=== PATIENT | female | born 2000 | race Caucasian/White ===

== ENCOUNTER 2023-10-20 16:22 | Outpatient (OUT) | payer OTHER, SELFPAY ==
[2023-10-20 18:13] LABS: HCG Quantitative 695 mIU/mL
== END 2023-10-20 16:23 | disposition home or self-care (01) ==
LOC: LAB 16:22
PROVIDERS: PCP Internal Medicine; Visit Provider Obstetrics & Gynecology
DX: N92.6 Irregular menstruation, unspecified (principal)
CPT/HCPCS: 36415; 84702

== ENCOUNTER 2023-10-22 09:32 | Outpatient (OUT) | payer OTHER, SELFPAY ==
--- OUTSIDE RECORDS SUMMARY | 2023-10-22 09:35 | XMS_ITS | CCD ---
Author Name Unknown Address [address] [place] [address] Organization [facility] Care Team Providers Care Franchise Business Consultant Name Role Phone MANSI, VITOR Admitting Unavailable MANSI, VITOR Attending Unavailable DR NAVNEET SANDOVAL Primary Care Unavailable MANSI, VITOR Consulting Unavailable NAHED ., NARGIS Admitting Unavailable NAHED ., NARGIS Attending Unavailable SANDHYA, DR ANAND PELAYO Primary Care Unavaillise MORFIN, DR ROBERTO Lynch Consulting Unavailable NAHED ., NARGIS Consulting Unavailable NAHED ., NARGIS Admitting Unavailable NAHED ., NARGIS Attending Unavailable LORI, DR TOTH Primary Care Unavailable NAHED ., NARGIS Consulting Unavailable MANSI, VITOR Admitting Unavailable MANSI, VITOR Attending Unavailable DR NAVNEET SANDOVAL Primary Care Unavailable MANSI, VITOR Consulting Unavailable Problems Active Problems Problem Classification Problem Date Documented Date Episodic/Chronic Abdominal pain (4 sources) Pelvic and perineal pain; Translations: [PELVIC AND PERINEAL PAIN] Onset: 10-26-2022 Episodic Immunizations and screening for infectious disease (2 sources) Encounter for screening for human papillomavirus (HPV); Translations: [Encounter for screening for infections with a predominantly sexual mode of transmission] Onset: 10-21-2022 Episodic Other screening for suspected conditions (not mental disorders or infectious disease) (4 sources) Encounter for screening for malignant neoplasm of cervix; Translations: [ENC SCREENING MALIG NEOPLASM CERV] Onset: 10-20-2022 Episodic Past or Other Problems Problem Classification Problem Date Documented Date Episodic/Chronic Other female genital disorders (4 sources) Other specified noninflammatory disorders of vagina; Translations: [OTH SPEC NONINFLAMMATORY D/O VAGINA] Onset: 08-23-2022 Episodic Results Test Name Value Interpretation Reference Range Facil ity US PELVIS AND TRANSVAGon US PELVIS AND TRANSVAG EXAMINATION: US PELVIS AND TRANSVAG HISTORY: Dyspareunia COMPARISON: No relevant comparison available. FINDINGS: Transabdominal and transvaginal images The uterus is normal in size, contour and myometrial echotexture measuring 7.7 x 1.1 x 1.7 cm. No focal myometrial mass. Anteverted, retroflexed. The endometrium measures 1.1 cm, normal. The right ovary is normal in appearance measuring 3.4 x 2.2 x 3.9 cm. Normal color Doppler flow. The left ovary is normal in appearance measuring 2.3 x 1.1 x 1.7 cm. Normal color Doppler flow No free fluid IMPRESSION: No acute abnormality Electronically authenticated by: ROBERTO MORFIN Date: 2022-10-26 16:30 [facility] PAP ACOG PANEL 2: 21 to 29on 10-25-2022 . . Normal [facility] Comment on above: Performed By: #### [id number] #### [facility] [address] [place] [address] Dr. Jorge Luis Mena Age Gdln ACOG Testing 19- [facility] Comment on above: Performed By: #### [id number] #### [facility] [address] [place] [address] Dr. Jorge Luis Mena DIAGNOSIS: Comment [facility] Comment on above: Result Comment: NEGA TIVE FOR INTRAEPITHELIAL LESION OR MALIGNANCY. Performed By: #### [id number] #### [facility] [address] [place] [address] Dr. Jorge Luis Mena Methodology: Comment Normal [facility] Comment on above: Result Comment: This liquid based ThinPrep(R) pap test was screened with the use of an image guided system. Performed By: #### 4 [id number] #### [facility] [address] [place] [address] Dr. Jorge Luis Mena Note: Comment [facility] Comment on above: Result Comment: The Pap smear is a screening test designed to aid in the detection of premalignant and malignant conditions of the uterine cervix. It is not a diagnostic procedure and should not be used as the sole means of detecting cervical cancer. Both false-positive and false-negative reports do occur. . Performed By: #### [id number] #### [facility] [address] [place] [address] Dr. Jorge Luis Mena Performed by: Comment Normal [facility] Comment on above: Result Comment: Yady Dowell, Correctional Manager (ASCP) Performed By: #### 4 [id number] #### [facility] [address] [place] [address] Dr. Jorge Luis Mena Reflex Criteria: Comment Normal [facility] Comment on above: Result Comment: The HPV DNA reflex criteria were not met with this specimen result therefore, no HPV testing was performed. . Performed By: #### 4 [id number] #### [facility] [address] [place] [address] Dr. Jorge Luis Mena Specimen adequacy: Comment Normal [facility] Comment on above: Result Comment: Sati sfactory for evaluation. Endocervical and/or squamous metaplastic cells (endocervical component) are present. Performed By: #### 4 [id number] #### [facility] [address] [place] [address] Dr. Jorge Luis Mena CHLAMYDIA/GONOCOCCUS SHANELLE (SW AB/URINE/PAPon 10-23-2022 Chlamydia trachomatis, SHANELLE Negative Normal Negative [facility] Comment on above: Performed By: #### C T/NGNA #### [facility] [address] [place] [address] Dr. Jorge Luis Mena Neisseria gonorrhoeae, SHANELLE Negative Normal Negative [facility] Comment on above: Performed By: #### C T/NGNA #### [facility] [address] [place] [address] Dr. Jorge Luis Mena VAGINITIS/VAGINOSIS DNA PROB Angel 10-22-2022 Nancy species Negative Normal Negative [facility] Comment on above: Performed By: #### V AGINT #### [facility] [address] [place] [address] Dr. Jorge Luis Mena Gardnerella vaginalis Positive Abnormal Negative [facility] Comment on above: Performed By: #### V AGINT #### [facility] [address] [place] [address] Dr. Jorge Luis Mena Trichomonas vaginalis Negative Normal Negative [facility] Comment on above: Performed By: #### V AGINT #### [facility] [address] [address] [address] Jorge Luis Mena VAGINITIS/VAGINOSIS DNA PROB Angel 08-25-2022 Nancy species Negative Normal Negative [facility] Comment on above: Performed By: #### V AGINT #### [facility] [address] [address] [address] Jorge Luis Mena Gardnerella vaginalis Negative Normal Negative [facility] Comment on above: Performed By: #### V AGINT #### [facility] [address] [address] [address] Jorge Luis Mena Trichomonas vaginalis Negative Normal Negative [facility] Comment on above: Performed By: #### V AGINT #### [facility] [address] [address] [address] Jorge Luis Mena Encounters Encounter Date Encounter Type Care Provider Facility Start: 10-26-2022 End: 10-27-2022 ambulatory NARGIS DOCKERY . Facility: Start: 10-20-2022 End: 10-20-2022 ambulatory NARGIS DOCKERY . Facility: Start: 08-23-2022 End: 08-23-2022 ambulatory VITOR NAZARIO Facility: Payers Date Payer Category Payer Unknown [id number] 2.16.84 [id number] 1998 Unknown [id number] 2.16.84 [id number] 1998 Unknown [id number] 2.16.84 [id number] 1998 Unknown [id number] 2.16.84 [id number] 1959 Private Health Insurance [id number] Summary Purpose Family History No Family History Records Found Advance Directives No Advanced Directives Records Found Additional Source Comments INFORMATION SOURCE (unrecogn ized section and content) DATE CREATED AUTHOR 12/27/2022 [facility] FOR RECORDS PERTAINING TO PATIENTS WHO ARE OR HAVE BEEN ENROLLED IN A CHEMICAL DEPENDENCY/SUBSTANCEABUSE PROGRAM, SOME INFORMATION MAY BE OMITTED. This clinical summary was aggregated from multiple sources. Caution should be exercised in using it in the provision of clinical care. This summary normalizes information from multiple sources, and as a consequence, information in this document may materially change the coding, format and clinical context of patient data. In addition, data may be omitted in some cases. CLINICAL DECISIONS SHOULD BE BASED ON THE PRIMARY CLINICAL RECORDS. [facility]. provides no warranty or guarantee of the accuracy or completeness of information in this document.
[2023-10-22 12:32] LABS: HCG Quantitative 1360 mIU/mL
== END 2023-10-22 09:33 | disposition home or self-care (01) ==
LOC: LAB 09:32
PROVIDERS: PCP Internal Medicine; Visit Provider Obstetrics & Gynecology
DX: N92.6 Irregular menstruation, unspecified (principal)
CPT/HCPCS: 36415; 84702

== ENCOUNTER 2023-11-10 13:41 | Outpatient (OUT) | payer OTHER, SELFPAY ==
--- NOTE | 2023-11-10 13:45 | US_ITS ---
[address] [address] Patient Name: PAUL CRUZ MRN: [id number] date: 2000 Sex: F Assigned Patient Location: [facility] Current Patient Location: [facility] Accession/Order Number: [id number] Exam Date: 11/10/2023 13:45 Report Date: 11/10/2023 15:00 At the request of: VITOR NAZARIO Procedure: US OB transvaginal EXAMINATION: US OB transvaginal HISTORY: MISSED MENSES COMPARISON: No relevant comparison available. FINDINGS: GESTATIONAL SAC: Present and normal appearing. YOLK SAC: Present and normal appearing. POLE: Present and normal appearing. CARDIAC: Present. UTERUS: Normal size and appearance. OVARIES: Right: Corpus lutein cyst. Left: Not seen. CERVIX: 4.2 cm in length and closed. CUL-DE-SAC: Normal. OTHER: None. AGE BY LMP: Unknown LMP REJI BY LMP: AGE BY US CRL: 7 weeks 1 day REJI BY US CRL: 06/27/2024 US/US OB transvaginal IMPRESSION: 1. Single live intrauterine 7 weeks 1 day by today's ultrasound. Electronically authenticated by: ESTELLA VELASQUEZ Date: 11/10/2023 15:00
--- OUTSIDE RECORDS SUMMARY | 2023-11-10 14:02 | XMS_ITS | CCD ---
Author Name Unknown Address [address] [place] [address] Organization [facility] Care Team Providers Care Slot Floorperson Name Role Phone MANSI, VITOR Admitting Unavailable [...] authenticated by: ROBERTO MORFIN Date: 2022-10-26 16:30 [facility] PAP ACOG PANEL 2: 19 to 29on 10-25-2022 . . Normal [facility] Comment on above: Performed By: #### 4 [id number] #### [facility] [address] [place] [address] Dr. Jorge Luis Mena Age Gdln ACOG Testing 19- [facility] Comment on above: Performed By: #### 4 [id number] #### [facility] [address] [place] [address] Dr. Jorge Luis Mena DIAGNOSIS: Comment [facility] Comment on above: Result Comment: NEGA TIVE FOR INTRAEPITHELIAL LESION OR MALIGNANCY. Performed By: #### 4 [id number] #### [facility] [address] [place] [address] Dr. Jorge Luis Mena Methodology: Comment Normal [facility] Comment on above: Result Comment: This liquid based ThinPrep(R) pap test was screened with the use of an image guided system. Performed By: #### 4 [id number] #### [facility] [address] [place] [address] Dr. Jorge Luis Mena Note: Comment [facility] Comment on above: Result Comment: The Pap smear is a screening test designed to aid in the detection of premalignant and malignant conditions of the uterine cervix. It is not a diagnostic procedure and should not be used as the sole means of detecting cervical cancer. Both false-positive and false-negative reports do occur. . Performed By: #### 4 [id number] #### [facility] [address] [place] [address] Dr. Jorge Luis Mena Performed by: Comment Normal [facility] Comment on above: Result Comment: Yady Dowell, Surveillance Specialist (ASCP) Performed By: #### 4 [id number] #### [facility] [address] [place] [address] Dr. Jorge Luis Mena Reflex Criteria: Comment Normal [facility] Comment on above: Result Comment: The HPV DNA reflex criteria were not met with this specimen result therefore, no HPV testing was performed. . Performed By: #### 4 [id number] #### [facility] [address] [place] [address] Dr. Jorge Luis Mena Specimen adequacy: Comment Normal [facility] Comment on above: Result Comment: Sati sfactory for evaluation. Endocervical and/or squamous metaplastic cells (endocervical component) are present. Performed By: #### 4 [id number] #### [facility] [address] [place] [address] Dr. Jorge Luis Mena CHLAMYDIA/GONOCOCCUS SHANELLE (SW AB/URINE/PAPon 10-23-2022 Chlamydia trachomatis, SHANELLE Negative Normal Negative [facility] Comment on above: Performed By: #### C T/NGNA #### [facility] [address] [place] [address] Dr. Jorge Luis Mena Neisseria gonorrhoeae, SHANELLE Negative Normal Negative [facility] Comment on above: Performed By: #### C T/NGNA #### [facility] [address] [place] [address] Dr. Jorge Luis Mena VAGINITIS/VAGINOSIS DNA PROB Angel 10-22-2022 Nancy species Negative Normal Negative [facility] Comment on above: Performed By: #### V AGINT #### [facility] [address] [place] [address] Dr. Jorge Luis Mena Gardnerella vaginalis Positive Abnormal Negative [facility] Comment on above: Performed By: #### V AGINT #### [facility] [address] [place] [address] Dr. Jorge Luis Mena Trichomonas vaginalis Negative Normal Negative [facility] Comment on above: Performed By: #### V AGINT #### [facility] [address] [address] [address] Jorge Luis Mena VAGINITIS/VAGINOSIS DNA PROB Angel 08-25-2022 Nancy species Negative Normal Negative [facility] Comment on above: Performed By: #### V AGINT #### [facility] [address] [address] [address] Jorge Luis Mena Gardnerella vaginalis Negative Normal Negative [facility] Comment on above: Performed By: #### V AGINT #### [facility] [address] [address] [address] Jorge Luis Mena Trichomonas vaginalis Negative Normal Negative [facility] Comment on above: Performed By: #### V AGINT #### [facility] [address] [address] [address] Jorge Luis Mena Encounters Encounter Date Encounter Type Care Provider Facility Start: 10-26-2022 End: 10-27-2022 ambulatory NARGIS DOCKERY . Facility: Start: 10-20-2022 End: 10-20-2022 ambulatory NARGIS DOCKERY . Facility: Start: 08-23-2022 End: 08-23-2022 ambulatory VITOR NAZARIO Facility: Payers Date Payer Category Payer Unknown [id number] 2.16.84 [id number] 2000 Unknown [id number] 2.16.84 [id number] 1998 Unknown [id number] 2.16.84 [id number] 1998 Unknown [id number] 2.16.84 [id number] 1959 Private Health Insurance [id number] Summary Purpose Family History No Family History Records Found Advance Directives No Advanced Directives Records Found Additional Source Comments INFORMATION SOURCE (unrecogn ized section and content) DATE CREATED AUTHOR 12/27/2022 [facility] FOR RECORDS PERTAINING TO PATIENTS WHO ARE [...] BE BASED ON THE PRIMARY CLINICAL RECORDS. [facility]. provides no warranty or guarantee of the accuracy or completeness of information in this document.
== END 2023-11-10 13:42 | disposition home or self-care (01) ==
LOC: NOMS 13:42
PROVIDERS: PCP Internal Medicine; Visit Provider Obstetrics & Gynecology
DX: Z34.91 Encounter for supervision of normal pregnancy, unspecified, first trimester (principal); Z3A.01 Less than 8 weeks gestation of pregnancy; N92.6 Irregular menstruation, unspecified
CPT/HCPCS: 76817

== ENCOUNTER 2023-11-30 15:53 | Outpatient (OUT) | payer OTHER, SELFPAY ==
--- OUTSIDE RECORDS SUMMARY | 2023-11-30 16:12 | XMS_ITS | CCD ---
Author Name Unknown Address [address] [place] [address] Organization [facility] Care Team Providers Care Anesthetist Name Role Phone THUY VITOR Admitting Unavailable THUY, VITOR Attending Unavailable LORI, DR TOTH Primary Care Unavailable THUY, VITOR Consulting Unavailable NAHED ., NARGIS Admitting Unavailable NAHED ., NARGIS Attending Unavailable SANDHYA, DR MICHEL LISTED Primary Care Unavaillise MORFIN, DR ROBERTO Lynch Consulting Unavailable NAHED ., NARGIS Consulting Unavailable NAHED ., NARGIS Admitting Unavailable NAHED ., NARGIS Attending Unavailable LORI, DR TOTH Primary Care Unavailable NAHED ., NARGIS Consulting Unavailable THUY, VITOR Admitting Unavailable THUY, VITOR Attending Unavailable LORI, DR TOTH Primary Care Unavailable THUY, VITOR Consulting Unavailable Archie Chaudhari MD Primary Care Provider Allergies Allergy Classification Reported Allergen(s) Allergy Type Date of Onset Reaction(s) Facility (1 source) Amoxicillin Drug Allergy 10-20-2023 [facility] Work Phone: Medications Current Medications Medication Drug Class(es) Dates Sig (Normalized) Sig (Original) Magnesium (1 source) Start: 11-10-2023 End: 12-10-2023 take 1 tablet by mouth in the morning magnesium 200 MG tablet Indications: Other migraine without status migrainosus, not intractable (CMS/HCC) Take 1 tablet (200 mg) by mouth in the morning. 30 tablet 0 11/10/2023 12/10/2023 Active ondansetron 4 mg disintegrating oral tablet (1 source) Serotonin-3 Receptor Antagonist Start: 11-10-2023 End: 02-08-2024 take 1 tablet by mouth every six hours for nausea and nausea ondansetron ODT (Zofran-ODT) 4 MG disintegrating tablet Indications: Nausea Take 1 tablet (4 mg) by mouth every 6 (six) hours 120 tablet 1 11/10/2023 02/08/2024 Active 24 hr divalproex sodium 250 mg extended release oral tablet (1 source) Mood Stabilizer, Anti-epileptic Agent divalproex (Depakote ER) 250 MG 24 hr tablet 1 (one) time each day at the same time 0 Active Problems Active Problems Problem Classification Problem Date Documented Date Episodic/Chronic Abdominal pain (4 sources) Pelvic and perineal pain; Translations: [PELVIC AND PERINEAL PAIN] Onset: 10-26-2022 Episodic Headache; including migraine (1 source) Migraine; Translations: [Other migraine, not intractable, without status migrainosus] 11-10-2023 Chronic Immunizations and screening for infectious disease (2 sources) Encounter for screening for human papillomavirus (HPV); Translations: [Encounter for screening for infections with a predominantly sexual mode of transmission] Onset: 10-21-2022 Episodic Menstrual disorders (1 source) Missed period; Translations: [Irregular menstruation, unspecified] 11-09-2023 Chronic Nausea and vomiting (1 source) Nausea; Translations: [Nausea] 11-10-2023 Episodic Other screening for suspected conditions (not [...] Results Test Name Value Interpretation Reference Range Facility HCG ( test) Ql (U)o n 11-10-2023 Interpretation and review of laboratory results Abnormal [facility] Preg Test, Ur Positive [facility] care [facility] e Urinalysis macro (dipstick) panel (U)on 11-10-2023 Bilirubin, UA Negative Negative - 4(70) +++ mg/dL [facility] Blood, UA Positive Negative - 50 Sandeep/mcL [facility] Comment on above: trace Clarity, UA Clear [facility] re Color, UA [facility] e Glucose, UA Negative Negative - 2000(110) ++++ mg/dL [facility] Interpretation and review of laboratory results Abnormal [facility] Ketones, UA Positive Negative - 160(16) ++++ mg/dL [facility] Comment on above: 40 mg Leukocytes, UA Negative Negative - 500+++ Husam/mcL [facility] Nitrite, UA Negative Negative - Positive [facility] pH, UA 5.5 5 - 9 [facility] Protein, UA Trace Negative - 2000(20) ++++ mg/dL [facility] Spec Grav, UA 1.030 1 - 1.03 [facility] Urobilinogen, UA 1.0 0.2 - 12 mg/dL [facility] PEL[facility] AND TRANSVAGon US PELVIS AND [...] authenticated by: ROBERTO MORFIN Date: 2022-10-26 16:30 Normal [facility] PAP ACOG PANEL 2: 21 to 29on 10-25-2022 . . Normal [facility] Comment on above: Performed By: #### [id number] #### [facility] [address] [address] [address] Jorge Luis Mena Age Gdln ACOG Testing 21-29 Normal [facility] Comment on above: Performed By: #### [id number] #### [facility] [address] [address] [address] Jorge Luis Mena DIAGNOSIS: Comment Normal [facility] Comment on above: Result Comment: NEGA TIVE FOR INTRAEPITHELIAL LESION OR MALIGNANCY. Performed By: #### [id number] #### [facility] [address] [address] [address] Jorge Luis Mena Methodology: Comment Normal [facility] Comment on above: Result Comment: This liquid based ThinPrep(R) pap test was screened with the use of an image guided system. Performed By: #### [id number] #### [facility] [address] [place] [address] Dr. Jorge Luis Mena Note: Comment Normal [facility] Comment on above: Result Comment: The Pap smear is a screening test designed to aid in the detection of premalignant and malignant conditions of the uterine cervix. It is not a diagnostic procedure and should not be used as the sole means of detecting cervical cancer. Both false-positive and false-negative reports do occur. . Performed By: #### [id number] #### [facility] [address] [place] [address] Dr. Jorge Luis Mena Performed by: Comment Normal [facility] Comment on above: Result Comment: Yady Dowell, Crime Lab Analyst (ASCP) Performed By: #### [id number] #### [facility] [address] [place] [address] Dr. Jorge Luis Mena Reflex Criteria: Comment Normal [facility] Comment on above: Result Comment: The HPV DNA reflex criteria were not met with this specimen result therefore, no HPV testing was performed. . Performed By: #### [id number] #### [facility] [address] [place] [address] Dr. Jorge Luis Mena Specimen adequacy: Comment Normal [facility] Comment on above: Result Comment: Sati sfactory for evaluation. Endocervical and/or squamous metaplastic cells (endocervical component) are present. Performed By: #### [id number] #### [facility] [address] [place] [address] Dr. Jorge Luis Mena CHLAMYDIA/GONOCOCCUS SHANELLE (SW AB/URINE/PAPon 10-23-2022 Chlamydia trachomatis, SHANELLE Negative Normal Negative [facility] Comment on above: Performed By: #### C T/NGNA #### [facility] [address] [place] [address] Dr. Jorge Luis Mena Neisseria gonorrhoeae, SHANELLE Negative Normal Negative [facility] Comment on above: Performed By: #### C T/NGNA #### [facility] [address] [place] [address] Dr. Jorge Luis Mena VAGINITIS/VAGINOSIS DNA PROB Angel 10-22-2022 Nancy species Negative Normal Negative [facility] Comment on above: Performed By: #### V AGINT #### [facility] [address] [place] [address] Dr. Jorge Luis Mena Gardnerella vaginalis Positive Abnormal Negative [facility] Comment on above: Performed By: #### V AGINT #### [facility] [address] [place] [address] Dr. Jorge Luis Mena Trichomonas vaginalis Negative Normal Negative [facility] Comment on above: Performed By: #### V AGINT #### [facility] [address] [place] [address] Dr. Jorge Luis Mena VAGINITIS/VAGINOSIS DNA PROB Angel 08-25-2022 Nancy species Negative Normal Negative [facility] Comment on above: Performed By: #### V AGINT #### [facility] [address] [place] [address] Dr. Jorge Luis Mena Gardnerella vaginalis Negative Normal Negative [facility] Comment on above: Performed By: #### V AGINT #### [facility] [address] [place] [address] Dr. Jorge Luis Mena Trichomonas vaginalis Negative Normal Negative [facility] Comment on above: Performed By: #### V AGINT #### [facility] [address] [place] [address] Dr. Jorge Luis Mena Vital Signs Date Time Vital Sign Value Performing Clinician Faci lity 11-10-2023 14:40-0500 Body mass index (BMI) [Ratio] 35.74 kg/m2 [facility] Nurse [facility] 11-10-2023 14:40-0500 Body weight 92.99 kg [facility] Nurse [facility] 11-10-2023 14:40-0500 Diastolic blood pressure 72 mm[Hg] [facility] Nurse [facility] 11-10-2023 14:40-0500 Systolic blood pressure 122 mm[Hg] [facility] Encounters Encounter Date Encounter Type Care Provider Facility Start: 11-10-2023 End: 11-10-2023 ambulatory Not Available Start: 11-10-2023 End: 11-10-2023 Office outpatient visit 5 minutes [facility] Ob Thuy Nurse [facility] OB Comment on above: GA: 7w1d Start: 10-26-2022 End: 10-27-2022 ambulatory NARGIS DOCKERY . Facility:[facility]1 Start: 10-20-2022 End: 10-20-2022 ambulatory NARGIS DOCKERY . Facility:[facility] Start: 08-23-2022 End: 08-23-2022 ambulatory VITOR THUY Facility: Procedures Date Procedure Procedure Detail Performing Clinician Start: 11-10-2023 End: 11-10-2023 Urnls dip stick/tablet rgnt non-auto w/o micrscp Vitor Daley DO Work Phone: Plan of Treatment Date Care Activity Detail Author Start: 12-12-2023 End: 12-12-2023 Patient encounter procedure 12/12/2023 3:50 PM EST Routine [facility] [address] [address] Vitor Daley, DO [address] [place] [address] [facility] Start: 11-10-2023 End: 11-10-2024 ABO/Rh ABO/Rh Lab Routine Missed menses Expected: 11/10/2023 (Approximate), Expires: 11/10/2024 [facility] Comment on above: Expected: 11/10/2023 (Approximate), Expires: 11/10/2024 Start: 11-10-2023 End: 11-10-2024 Blood type and Indirect antibody screen panel - Blood Type and screen Lab Routine Missed menses Expected: 11/10/2023 (Approximate), Expires: 11/10/2024 [facility] Work Phone: Comment on above: Expected: 11/10/2023 (Approximate), Expires: 11/10/2024 Start: 11-10-2023 End: 11-10-2024 US Pelvis transvaginal US OB transvaginal Imaging Routine Missed menses Expected: 11/10/2023 (Approximate), Expires: 11/10/2024 [facility] Comment on above: Expected: 11/10/2023 (Approximate), Expires: 11/10/2024 Start: 06-10-2023 Influenza vaccination Influ[facility] Vacc ine (#[facility] Bacteria identified in Urine by Culture Urine culture Microbiology Routine Missed menses Ordered: 11/10/2023 [facility] Comment on above: Ordered: 11/10/2023 CBC W Auto Different ial panel - Blood CBC and differential Lab Routine Missed menses Ordered: 11/10/2023 [facility] Comment on above: Ordered: 11/10/2023 Hemoglobin A1c measurement Hemoglobin A1c Lab Routine Missed menses Ordered: 11/10/2023 [facility] Comment on above: Ordered: 11/10/2023 Hepatitis B virus surface Ag [Presence] in Serum or Plasma by Immunoassay Hepatitis B surface antigen Lab Routine Missed menses Ordered: 11/10/2023 [facility] Comment on above: Ordered: 11/10/2023 Hepatitis C virus Ab [Presence] in Serum or Plasma by Immunoassay Hepatitis C antibody Lab Routine Missed menses Ordered: 11/10/2023 [facility] Comment on above: Ordered: 11/10/2023 HIV-1/HIV-2 antigen/antibody combination immunoassay HIV-1 and HIV-2 antibodies Lab Routine Missed menses Ordered: 11/10/2023 [facility] Comment on above: Ordered: 11/10/2023 Reagin Ab [Presence] in Serum by RPR RPR Lab Routine Missed menses Ordered: 11/10/2023 [facility] Comment on above: Ordered: 11/10/2023 Rubella antibody, IgG Rubella an tibody, IgG Lab Routine Missed menses Ordered: 11/10/2023 [facility] Comment on above: Ordered: 11/10/2023 Payers Date Payer Category Payer Private Health Insurance MILAGRO MAURO [id number] 2023-Present [address] [place] [id number] [id number] 1998 Unknown [id number] 1998 Unknown [id number] 1998 Unknown [id number] 1998 Unknown [id number] 1998 Unknown [id number] 1998 Unknown [id number] 1961 Private Health Insurance [id number] Social History Date Type Detail Facility Start: 10-04-2023 Tobacco smoking stat [facility] Smokes tobacco daily [facility] History of tobacco use Cigarette Smoker [facility] Start: 11-10-2023 Alcohol intake Lifetime non-d remigio (finding) [facility] Start: 10-04-2023 History of Social function [facility] Start: 10-04-2023 Tobacco use panel [facility] Start: 10-04-2023 Tobacco Comment 5 or less cigarettes /day [facility] Start: 10-05-2023 [facility] Start: 2000 Sex Assigned At Not on file [facility] History of Present illness Narrative 11-10-2023 Nona Santana MA - 11/10/2023 2:00 PM EST Note Date & Type Note Facility 11-10-2023 History of Presen t illness Narrative Reason for Appointment: Patient ID: Benitez Cruz is a 23 y.o. female who presents for Amenorrhea Patient presents today for a Nurse OB Intake appointment. Patient is 7w1d with a Estimated Date of Delivery: 06/27/24 OB History Para Term AB Living 1 SAB IAB Ectopic Multiple Live Births # Outcome Date GA Lbr David/2nd Weight Sex Delivery Anes PTL Lv 1 Current Current Medications: has a current medication list which includes the following prescription(s): divalproex. Medical History: Active Ambulatory Problems Diagnosis Date Noted No Active Ambulatory Problems Resolved Ambulatory Problems Diagnosis Date Noted No Resolved Ambulatory Problems Past Medical History: Diagnosis Date Allergic rhinitis Impaired glucose tolerance Obesity No family history on file. Social History Tobacco Use Smoking status: Every Day Types: Cigarettes Smokeless tobacco: Not on file Tobacco comments: 5 or less cigarettes/day Substance Use Topics Alcohol use: Never Drug use: Not on file No past surgical history on file. Allergies Allergen Reactions Amoxicillin Other Reaction(s): Unknown Vitals: Estimated body mass index is 36.76 kg/m as calculated from the following: Height as of 12/21/22: 5' 3.5 . Weight as of 12/21/22: 210 lb 12.8 oz. BP: No LMP recorded. Patient is . Assessment/Plan Diagnoses and all orders for this visit: Missed menses Nurse Note: Pt complained of having headaches especially at night at work. Pt works midnights along with nausea. Pt requested medication and rx was sent to pharmacy. Pt was taking energy drinks and was encouraged to not take them anymore due to . Pt vapes daily and is trying to quite. Follow Up: Patient is to have labs drawn at directed and return to office for initial OB appointment with provider. Patient may call office as needed with any concerns or questions. Nurse Visit Completed by: Nona Santana MA documented in this encounter [facility] Evaluation note Note Date & Type Note Facility Evaluation note Diagnosis Missed menses Nausea Nausea alone Other migraine without status migrainosus, not intractable (CMS/[facility]) documented in this encounter [facility] Summary Purpose Family History No Family History Records FoundNo Family History Records Found Advance Directives No Advanced Directives Records FoundNo Advanced Directives Records Found Additional Source Comments INFORMATION SOURCE (unrecogn ized section and content) DATE CREATED AUTHOR 12/27/2022 [facility] DATE CREATED AUTHOR AUTHOR'S ORGANIZ ATION 11/12/2023 [facility] Reason for Visit (unrecogniz ed section and content) Reason Comments Amenorrhea Care Teams (unrecognized sec tion and content) Anesthetist Relationship Specialty Start Date End Date Archie Chaudhari MD [address] [address] PCP - General Internal Medicine 02/15/23 FOR RECORDS PERTAINING TO PATIENTS WHO ARE [...] BE BASED ON THE PRIMARY CLINICAL RECORDS. [employer] [facility]. provides no warranty or guarantee of the accuracy or completeness of information in this document.
[2023-11-30 16:26] LABS: Basophils Percent Auto 0.3 % (0.2-2.0); Eosinophils Absolute Auto 0.1 10^3/uL (0.0-0.7); Hemoglobin 11.7 g/dL (12.0-16.0); Immature Granulocytes Abs Auto 0.01 10^3/uL (0.00-0.03); Immature Granulocytes Pct Auto 0.1 % (0.0-0.5); Lymphocytes Absolute Auto 1.9 10^3/uL (1.2-3.8); Lymphocytes Percent Auto 27.2 % (20.5-60.0); Mean Corpuscular HGB Conc 34.4 g/dL (29.9-35.2); Mean Corpuscular Hemoglobin 30.2 pg (26.7-34.0); Mean Corpuscular Volume 87.9 fL (81.0-99.0); Monocytes Absolute Auto 0.6 10^3/uL (0.3-0.8); Monocytes Percent Auto 9.4 % (1.7-12.0); Neutrophils Absolute Auto 4.2 10^3/uL (1.4-6.5); Platelet Count 199 10^3/uL (150-450); Red Blood Count 3.87 10^6/uL (4.20-5.40); Red Cell Distribution Width 11.9 % (11.0-15.0); White Blood Count 6.8 10^3/uL (4.0-11.0)
[2023-11-30 17:04] LABS: Estimated Average Glucose 97 mg/dL
[2023-12-02 07:09] LABS: HBsAg Screen Negative (Negative); HCV Ab Non Reactive (Non Reactive)
[2023-12-02 08:12] LABS: HIV Ab/p24 Ag Screen Non Reactive (Non Reactive); Rubella Antibodies, IgG 6.25 index (Immune >0.99)
[2023-12-02 11:10] LABS: Rapid Plasma Reagin, Quant Non Reactive titer (NonRea<1:1)
== END 2023-11-30 15:54 | disposition home or self-care (01) ==
LOC: LAB 15:53
PROVIDERS: PCP Internal Medicine; Visit Provider Obstetrics & Gynecology
DX: Z36.0 Encounter for antenatal screening for chromosomal anomalies (principal); N92.6 Irregular menstruation, unspecified
CPT/HCPCS: 36415; 83036; 85025; 86592; 86762; 86803; 86850; 86900; 86901; 87086; 87340; 87389

== ENCOUNTER 2024-01-09 20:40 | Outpatient (REF) | payer OTHER, SELFPAY ==
--- OUTSIDE RECORDS SUMMARY | 2024-01-09 20:44 | XMS_ITS | CCD ---
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 Name Role Phone VITOR DALEY Admitting Unavailable VITOR DALEY Attending Unavailable LORI, DR TOTH Primary Care Unavailable VITOR DALEY Consulting Unavailable NAHED ., NARGIS Admitting Unavailable NAHED ., NARGIS Attending Unavailable SANDHYA, DR MICHEL LISTED Primary Care Unavaillise MORFIN, DR ROBERTO Lynch Consulting Unavailable NAHED ., NARGIS Consulting Unavailable NAHED ., NARGIS Admitting Unavailable NAHED ., NARGIS Attending Unavailable LORI, DR TOTH Primary Care Unavailable NAHED ., NARGIS Consulting Unavailable THUY, VITOR Admitting Unavailable VITOR DALEY Attending Unavailable DR ARCHIE CHAUDHARI Primary Care Unavailable THUY, VITOR Consulting Archie Randhawa MD Primary Care Provider VITOR DALEY Attending Unavailable Allergies Allergy Classification Reported Allergen(s) Allergy Type Date of Onset Reaction(s) Facility (1 source) Amoxicillin Drug Allergy 10-20-2023 [facility] Healthcare Work Phone: Medications Current Medications Medication [...] Interpretation and review of laboratory results Abnormal [facility] Preg Test, Ur Positive [facility] care [facility] e Urinalysis macro (dipstick) panel (U)on 11-10-2023 Bilirubin, UA Negative Negative - 4(70) +++ mg/dL [facility] Blood, UA Positive Negative - 50 Sandeep/mcL [facility] Comment on above: trace Clarity, UA Clear [facility] re Color, UA Yellow [facility] e Glucose, UA Negative Negative - 2000(110) ++++ mg/dL [facility] Interpretation and review of laboratory results Abnormal [facility] Ketones, UA Positive Negative - 160(16) ++++ mg/dL [facility] Comment on above: 40 mg Leukocytes, UA Negative Negative - 500+++ Husam/mcL [facility] Nitrite, UA Negative Negative - Positive [facility] pH, UA 5.5 5 - 9 [facility] P[facility] e Protein, UA Trace Negative - 2000(20) ++++ mg/dL [facility] Spec Grav, UA 1.030 1 - 1.03 [facility] Urobilinogen, UA 1.0 0.2 - 12 mg/dL [facility] US PELVIS AND TRANSVAGon US [...] authenticated by: ROBERTO MORFIN Date: 2022-10-26 16:30 [facility] PAP ACOG PANEL 2: 21 to 29on 10-25-2022 . . Normal [facility] Comment on above: Performed By: #### [id number] #### [facility] [address] [address] [address] Jorge Luis Mena Age Gdln ACOG Testing 21-29 Normal [facility] Comment on above: Performed By: #### [id number] #### [facility] [address] [address] [address] Jorge Luis Mena DIAGNOSIS: Comment [facility] Comment on above: Result Comment: NEGA TIVE FOR INTRAEPITHELIAL LESION OR MALIGNANCY. Performed By: #### [id number] #### [facility] [address] [address] [address] Jorge Luis Mena Methodology: Comment Normal [facility] Comment on above: Result Comment: This liquid based ThinPrep(R) pap test was screened with the use of an image guided system. Performed By: #### [id number] #### [facility] [address] [place] [address] Dr. Jorge Luis Mena Note: Comment Normal [facility] Comment on above: Result Comment: The Pap smear is a screening test designed to aid in the detection of premalignant and malignant conditions of the uterine cervix. It is not a diagnostic procedure and should not be used as the sole means of detecting cervical cancer. Both false-positive and false-negative reports do occur. . Performed By: #### [id number] #### [facility] [address] [place] [address] Dr. Jorge Luis Mena Performed by: Comment Normal [facility] Comment on above: Result Comment: Yady Dowell, Oral Surgery Assistant (ASCP) Performed By: #### [id number] #### [facility] [address] [place] [address] Dr. Jorge Luis Mena Reflex Criteria: Comment Normal [facility] Comment on above: Result Comment: The HPV DNA reflex criteria were not met with this specimen result therefore, no HPV testing was performed. . Performed By: #### [id number] #### [facility] [address] [place] [address] Dr. Jorge Luis Mena Specimen adequacy: Comment Normal [facility] Comment on above: Result Comment: Sati sfactory for evaluation. Endocervical and/or squamous metaplastic cells (endocervical component) are present. Performed By: #### 4 [id number] #### [facility] [address] [place] [address] Dr. Jorge Luis Mena CHLAMYDIA/GONOCOCCUS SHANELLE (SW AB/URINE/PAPon 10-23-2022 Chlamydia trachomatis, SHANELLE Negative Normal Negative [facility] Comment on above: Performed By: #### C T/NGNA #### [facility] [address] [place] [address] Dr. Jorge Luis Mena Neisseria gonorrhoeae, SHANELLE Negative Normal Negative [facility] Comment on above: Performed By: #### C T/NGNA #### [facility] [address] [address] [address] Jorge Luis Mena VAGINITIS/VAGINOSIS DNA PROB Angel 10-22-2022 Nancy species Negative Normal Negative [facility] Comment on above: Performed By: #### V AGINT #### [facility] [address] [place] [address] Dr. Jorge Luis Mena Gardnerella vaginalis Positive Abnormal Negative [facility] Comment on above: Performed By: #### V AGINT #### [facility] [address] [place] [address] Dr. Jorge Luis Mena Trichomonas vaginalis Negative Normal Negative [facility] Comment on above: Performed By: #### V AGINT #### [facility] [address] [place] [address] Dr. Jorge Luis Mena VAGINITIS/VAGINOSIS DNA PROB Angel 08-25-2022 Nancy species Negative Normal Negative [facility] Comment on above: Performed By: #### V AGINT #### [facility] [address] [place] [address] Dr. Jorge Luis Mena Gardnerella vaginalis Negative Normal Negative [facility] Comment on above: Performed By: #### V AGINT #### [facility] [address] [place] [address] Dr. Jorge Luis Mena Trichomonas vaginalis Negative Normal Negative [facility] Comment on above: Performed By: #### V AGINT #### [facility] [address] [place] [address] Dr. Jorge Luis Mena Vital Signs Date Time Vital Sign Value Performing Clinician Faci lity 11-10-2023 14:40-0500 Body mass index (BMI) [Ratio] 35.74 kg/m2 [facility] Nurse [facility] 11-10-2023 14:40-0500 Body weight 92.99 kg [facility] Nurse [facility] 11-10-2023 14:40-0500 Diastolic blood pressure 72 mm[Hg] [facility] Nurse [facility] 11-10-2023 14:40-0500 Systolic blood pressure 122 mm[Hg] [facility] Nurse [facility] Encounters Encounter Date Encounter Type Care Provider Facility Start: 12-12-2023 End: 12-12-2023 ambulatory VITOR THUY Not Available Start: 11-10-2023 End: 11-10-2023 ambulatory VITOR THUY Not Available Start: 11-10-2023 End: 11-10-2023 Office outpatient visit 5 minutes [facility] Th[facility] Nurse [facility] Comment on above: GA: 7w1d Start: 10-26-2022 End: 10-27-2022 ambulatory NARGIS DOCKERY . Facility: Start: 10-20-2022 End: 10-20-2022 ambulatory NARGIS DOCKERY . Facility:[facility] Start: 08-23-2022 End: 08-23-2022 ambulatory VITOR THUY Facility: Procedures Date Procedure Procedure Detail Performing Clinician Start: 11-10-2023 End: 11-10-2023 Urnls dip stick/tablet rgnt non-auto w/o micrscp Vitor Thuy DO Work Phone: Plan of Treatment Date Care Activity Detail Author Start: 12-12-2023 End: 12-12-2023 Patient encounter procedure 12/12/2023 3:50 PM EST Routine [facility] [address] [id number] Vitor Daley, DO [address] [place] [address] [facility] Start: 11-10-2023 End: 11-10-2024 ABO/Rh ABO/Rh Lab Routine Missed menses Expected: 11/10/2023 (Approximate), Expires: 11/10/2024 [facility] Comment on above: Expected: 11/10/2023 (Approximate), Expires: 11/10/2024 Start: 11-10-2023 End: 11-10-2024 Blood type and Indirect antibody screen panel - Blood Type and screen Lab Routine Missed menses Expected: 11/10/2023 (Approximate), Expires: 11/10/2024 [facility] Work Phone: Comment on above: Expected: 11/10/2023 (Approximate), Expires: 11/10/2024 Start: 11-10-2023 End: 11-10-2024 US Pelvis transvaginal US OB transvaginal Imaging Routine Missed menses Expected: 11/10/2023 (Approximate), Expires: 11/10/2024 [facility] Comment on above: Expected: 11/10/2023 (Approximate), Expires: 11/10/2024 Start: 06-10-2023 Influenza vaccination Influenza Vacc ine (#1) [facility] Bacteria identified in Urine by Culture Urine culture Microbiology Routine Missed menses Ordered: 11/10/2023 [facility] Comment on above: Ordered: 11/10/2023 CBC W Auto Different ial panel - Blood CBC and differential Lab Routine Missed menses Ordered: 11/10/2023 [facility] Comment on above: Ordered: 11/10/2023 Hemoglobin A1c measurement Hemoglobin A1c Lab Routine Missed menses Ordered: 11/10/2023 [facility] Comment on above: Ordered: 11/10/2023 Hepatitis B virus surface Ag [Presence] in Serum or Plasma by Immunoassay Hepatitis B surface antigen Lab Routine Missed menses Ordered: 11/10/2023 [facility] Comment on above: Ordered: 11/10/2023 Hepatitis C virus Ab [Presence] in Serum or Plasma by Immunoassay Hepatitis C antibody Lab Routine Missed menses Ordered: 11/10/2023 [facility] Comment on above: Ordered: 11/10/2023 HIV-1/HIV-2 antigen/antibody combination immunoassay HIV-1 and HIV-2 antibodies Lab Routine Missed menses Ordered: 11/10/2023 [facility] Comment on above: Ordered: 11/10/2023 Reagin Ab [Presence] in Serum by RPR RPR Lab Routine Missed menses Ordered: 11/10/2023 [facility] Comment on above: Ordered: 11/10/2023 Rubella antibody, IgG Rubella an tibody, IgG Lab Routine Missed menses Ordered: 11/10/2023 [facility] Comment on above: Ordered: 11/10/2023 Payers Date Payer Category Payer Private Health Insurance [employer]HA[employer] [place] [id number] 2023-Present [address] [place] [id number] 1998 Unknown [id number] 1998 Unknown [id number] 1998 Unknown [id number] 1998 Unknown [id number] 1998 Unknown [id number] 1998 Unknown [id number] 1998 Unknown [id number] 1961 Private Health Insurance [id number] Social History Date Type Detail Facility Start: [facility]04-[facility]23 [facility] History of [...] Sex Assigned At Not on file [facility] History of Present illness Narrative 11-10-2023 Nona Santana MA - 11/10/2023 2:00 PM EST Note Date & Type Note Facility 11-10-2023 History of Presen t illness Narrative Reason for Appointment: Patient ID: Benitez Arroyo is a 23 y.o. female who presents [...] Nona Santana MA documented in this encounter [facility] Evaluation note Note Date & Type Note Facility Evaluation note Diagnosis Missed menses Nausea Nausea alone Other migraine without status migrainosus, not intractable (CMS/[facility]) documented in this encounter [facility] Summary Purpose Family History No Family History Records FoundNo Family History Records Found Advance Directives No Advanced Directives Records FoundNo Advanced Directives Records Found Additional Source Comments INFORMATION SOURCE (unrecogn ized section and content) DATE CREATED AUTHOR 12/27/2022 [facility] DATE CREATED AUTHOR AUTHOR'S ORGANIZ ATION 12/13/2023 [facility] Reason for Visit (unrecogniz ed section and content) Reason Comments Amenorrhea Care Teams (unrecognized sec tion and content) 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 [employer] [facility]. provides no warranty or guarantee of the accuracy or completeness of information in this document.
[2024-01-13 11:09] LABS: Age Gdln ACOG Testing Note (.); IGP, rfx Aptima HPV ASCU Note (.)
== END 2024-01-09 20:41 | disposition home or self-care (01) ==
LOC: LAB 20:40
PROVIDERS: PCP Internal Medicine; Visit Provider Physician Assistant
DX: Z01.419 Encounter for gynecological examination (general) (routine) without abnormal findings (principal)
CPT/HCPCS: G0145

== ENCOUNTER 2024-02-08 09:08 | Outpatient (OUT) | payer OTHER, SELFPAY ==
--- NOTE | 2024-02-08 09:10 | US_ITS ---
[address] [address] Patient Name: PAUL CRUZ MRN: [id number] date: 2000 Sex: F Assigned Patient Location: [facility] Current Patient Location: [facility] Accession/Order Number: [id number] Exam Date: 02/08/2024 09:11 Report Date: 02/08/2024 10:50 At the request of: VITOR NAZARIO Procedure: US OB cervical length EXAMINATION: US OB anatomy, US OB cervical length HISTORY: ANATOMY COMPARISON: No relevant comparison available. TECHNIQUE: Transabdominal sonographic examination was performed for obstetrical and evaluation. FINDINGS: Number: 1 Heart Rate: 148.0 bpm H.B. /min Amniotic Fluid Volume: Subjectively normal position: Cephalic presentation, longitudinal lie Placental Location: ANTERIOR, placental edge 6.3 cm from the internal os Cervix Length: 4.4 cm , closed Normal anatomy: Lateral ventricles, cerebellum, posterior fossa, nose, lips, orbits, four-chamber heart, RVOT, LVOT, diaphragm, stomach, kidneys, abdominal cord insertion, bladder, umbilical arteries, three-vessel cord, spine, extremities BIOMETRY: BPD: 4.6 cm 20 weeks 0 days , 48% HC: 17.3 cm 19 weeks 6 days, 34% AC: 16.2 cm 21 weeks 2 days, 84% FL: 3.3 cm 20 weeks 2 days , 53% EFW:371.8 grams; 13 ounces, 83% FL/AC: 20.3 FL/BPD: 71.2 HC/AC: 1.1 GESTATIONAL AGE: Age by EDC: 20 weeks 0 days REJI by EDC: 06/27/2024 Age by current US: 20 weeks 3 days REJI by current US: 06/24/2024 US/US OB cervical length IMPRESSION: Normal anatomy scan Closed cervix measuring 4.4 cm *Reference: [facility] Practice Guideline for the performance of Obstetric Ultrasound Examinations, July 10, 2007. Electronically authenticated by: ROBERTO MORFIN Date: 02/08/2024 10:50
--- NOTE | 2024-02-08 09:10 | US_ITS ---
[address] [address] Patient Name: PAUL CRUZ MRN: [id number] date: 2000 Sex: F Assigned Patient Location: [facility] Current Patient Location: [facility] Accession/Order Number: [id number] Exam Date: 02/08/2024 09:11 Report Date: 02/08/2024 10:50 At the request of: VITOR NAZARIO Procedure: US OB anatomy EXAMINATION: US OB anatomy, US OB cervical length HISTORY: ANATOMY COMPARISON: No relevant comparison available. TECHNIQUE: Transabdominal sonographic examination was performed for obstetrical and evaluation. FINDINGS: Number: 1 Heart Rate: 148.0 bpm H.B. /min Amniotic Fluid Volume: Subjectively normal position: Cephalic presentation, longitudinal lie Placental Location: ANTERIOR, placental edge 6.3 cm from the internal os Cervix Length: 4.4 cm , closed Normal anatomy: Lateral ventricles, cerebellum, posterior fossa, nose, lips, orbits, four-chamber heart, RVOT, LVOT, diaphragm, stomach, kidneys, abdominal cord insertion, bladder, umbilical arteries, three-vessel cord, spine, extremities BIOMETRY: BPD: 4.6 cm 20 weeks 0 days , 48% HC: 17.3 cm 19 weeks 6 days, 34% AC: 16.2 cm 21 weeks 2 days, 84% FL: 3.3 cm 20 weeks 2 days , 53% EFW:371.8 grams; 13 ounces, 83% FL/AC: 20.3 FL/BPD: 71.2 HC/AC: 1.1 GESTATIONAL AGE: Age by EDC: 20 weeks 0 days REJI by EDC: 06/27/2024 Age by current US: 20 weeks 3 days REJI by current US: 06/24/2024 US/US OB anatomy IMPRESSION: Normal anatomy scan Closed cervix measuring 4.4 cm *Reference: [facility] Practice Guideline for the performance of Obstetric Ultrasound Examinations, July 10, 2007. Electronically authenticated by: ROBERTO MORFIN Date: 02/08/2024 10:50
== END 2024-02-08 09:09 | disposition home or self-care (01) ==
LOC: NOMS 09:08
PROVIDERS: PCP Internal Medicine; Visit Provider Obstetrics & Gynecology
DX: Z36.89 Encounter for other specified antenatal screening (principal); Z3A.20 20 weeks gestation of pregnancy
CPT/HCPCS: 76805; 76817

== ENCOUNTER 2024-02-15 14:30 | Outpatient (OUT) | payer OTHER, SELFPAY ==
[2024-02-17 02:07] LABS: Insulin Dep Diabetes No (.); Maternal Age At EDD 26.1 yr (.); OSBR Risk 1 IN 4947 (.); Results Report (.)
== END 2024-02-15 14:31 | disposition home or self-care (01) ==
LOC: LAB 14:31
PROVIDERS: PCP Internal Medicine; Visit Provider Obstetrics & Gynecology
DX: Z34.92 Encounter for supervision of normal pregnancy, unspecified, second trimester (principal)
CPT/HCPCS: 36415; 82105

== ENCOUNTER 2024-03-31 08:11 | Outpatient (OUT) | payer OTHER, SELFPAY ==
--- OUTSIDE RECORDS SUMMARY | 2024-03-31 08:13 | XMS_ITS | CCD ---
Author Organization [facility] Care Team Providers Care Commercial Credit Head Name Role Phone ALONZO DALEYY Admitting Unavailable THUY, VITOR Attending Unavailable LORI, [...] VITOR Admitting Unavailable THUY, VITOR Attending Unavailable DR ARCHIE CHAUDHARI Primary Care Unavailable THUY, VITOR Consulting Archie Randhawa MD Primary Care Provider ALONZO DALEYY Attending Unavailable NAHED, NARGIS Attending Unavailable THUY, VITOR Attending Unavailable THUY, VITOR Attending Unavailable Allergies Allergy Classification Reported Allergen(s) Allergy Type Date of Onset Reaction(s) Facility (1 source) Amoxicillin Drug Allergy 10-20-2023 [facility] Work Phone: Medications Current Medications [...] Interpretation and review of laboratory results Abnormal [facility] Preg Test, Ur Positive [facility] care [facility] Urinalysis macro (dipstick) panel (U)on 11-10-2023 Bilirubin, UA Negative Negative - 4(70) +++ mg/dL [facility] Blood, UA Positive Negative - 50 Sandeep/mcL [facility] Comment on above: trace Clarity, UA Clear [facility] re Color, UA Yellow [facility] Glucose, UA Negative Negative - 1999(110) ++++ mg/dL [facility] Interpretation and review of laboratory results Abnormal [facility] Ketones, UA Positive Negative - 160(16) ++++ mg/dL [facility] Comment on above: 40 mg Leukocytes, UA Negative Negative - 500+++ Husam/mcL [facility] Nitrite, UA Negative Negative - Positive [facility] pH, UA 5.5 5 - 9 [facility] Protein, UA Trace Negative - 1999(20) ++++ mg/dL [facility] Spec Grav, UA 1.030 1 - 1.03 [facility] Urobilinogen, UA 1.0 0.2 - 12 mg/dL [facility] US PELVIS AND TRANSVAGon US [...] by: ROBERTO MORFIN Date: 2022-10-26 16:30 Normal [facility] PAP ACOG PANEL 2: 19 to 27on 10-25-2022 . . Normal [facility] Comment on above: Performed By: #### [id number] #### [facility] [address] [address] [address] Jorge Luis Mena Age Gdln ACOG Testing 19- Normal [facility] Comment on above: Performed By: #### [id number] #### [facility] [address] [id number] Jorge Luis Mena DIAGNOSIS: Comment Normal [facility] Comment on above: Result Comment: NEGA TIVE FOR INTRAEPITHELIAL LESION OR MALIGNANCY. Performed By: #### [id number] #### [facility] [address] [place] [address] Dr. Jorge Luis Mena Methodology: Comment Normal [facility] Comment on above: Result Comment: This liquid based ThinPrep(R) pap test was screened with the use of an image guided system. Performed By: #### [id number] #### [facility] [address] [place] [address] Dr. Jorge Luis Mena Note: Comment Normal [facility] Comment on above: Result Comment: The Pap smear is a screening test designed to aid in the detection of premalignant and malignant conditions of the uterine cervix. It is not a diagnostic procedure and should not be used as the sole means of detecting cervical cancer. Both false-positive and false-negative reports do occur. . Performed By: #### [id number] #### [facility] [address] [place] [address] Dr. Jorge Luis Mena Performed by: Comment Normal [facility] Comment on above: Result Comment: Yady Dowell, Bonding Machine Operator (ASCP) Performed By: #### [id number] #### [facility] [address] [place] [address] Dr. Jorge Luis Mena Reflex Criteria: Comment Normal [facility] Comment on above: Result Comment: The HPV DNA reflex criteria were not met with this specimen result therefore, no HPV testing was performed. . Performed By: #### [id number] #### [facility] [address] [place] [address] Dr. Jorge Luis Mena Specimen adequacy: Comment Normal [facility] Comment on above: Result Comment: Sati sfactory for evaluation. Endocervical and/or squamous metaplastic cells (endocervical component) are present. Performed By: #### [id number] #### [facility] [address] [place] [address] Dr. Jorge Luis Mena CHLAMYDIA/GONOCOCCUS SHANELLE (SW AB/URINE/PAPon 10-23-2022 Chlamydia trachomatis, SHANELLE Negative Normal Negative [facility] Comment on above: Performed By: #### C T/NGNA #### [facility] [address] [place] [address] Dr. Jorge Luis Mena Neisseria gonorrhoeae, SHANELLE Negative Normal Negative [facility] Comment on above: Performed By: #### C T/NGNA #### [facility] [address] [place] [address] Dr. Jorge Luis Mena VAGINITIS/VAGINOSIS DNA PROB Angel 10-22-2022 Nancy species Negative Normal Negative [facility] Comment on above: Performed By: #### V AGINT #### [facility] [address] [place] [address] Dr. Jorge Luis Mena Gardnerella vaginalis Positive Abnormal Negative [facility] Comment on above: Performed By: #### V AGINT #### [facility] [address] [place] [address] Dr. Jorge Luis Mena Trichomonas vaginalis Negative Normal Negative [facility] Comment on above: Performed By: #### V AGINT #### [facility] [address] [place] [address] Dr. Jorge Luis Mena VAGINITIS/VAGINOSIS DNA PROB Angel 08-25-2022 Nancy species Negative Normal Negative [facility] Comment on above: Performed By: #### V AGINT #### [facility] [address] [place] [address] Dr. Jorge Luis Mena Gardnerella vaginalis Negative Normal Negative [facility] Comment on above: Performed By: #### V AGINT #### [facility] [address] [place] [address] Dr. Jorge Luis Mena Trichomonas vaginalis Negative Normal Negative [facility] Comment on above: Performed By: #### V AGINT #### [facility] [address] [place] [address] Dr. Jorge Luis Mena Vital Signs Date Time Vital Sign Value Performing Clinician Sharon yeboah 11-10-2023 14:40-0500 Body mass index (BMI) [Ratio] 35.74 kg/m2 [facility] Nurse [facility] 11-10-2023 14:40-0500 Body weight 92.99 kg [facility] Nurse [facility] 11-10-2023 14:40-0500 Diastolic blood pressure 72 mm[Hg] [facility] Nurse [facility] 11-10-2023 14:40-0500 Systolic blood pressure 122 mm[Hg] [facility] Encounters Encounter Date Encounter Type Care Provider Facility Start: 03-07-2024 End: 03-07-2024 ambulatory VITOR THUY Not Available Start: 02-08-2024 End: 02-08-2024 ambulatory VITOR THUY Not Available Start: 01-09-2024 End: 01-09-2024 ambulatory NARGIS COSTAEY Not Available Start: 12-12-2023 End: 12-12-2023 ambulatory VITOR THUY [...] Facility: Start: 08-23-2022 End: 08-23-2022 ambulatory VITOR THUY Facility: Procedures Date Procedure Procedure Detail Performing Clinician Start: 11-10-2023 End: 11-10-2023 Urnls dip stick/tablet rgnt non-auto w/o micrscp Vitor Thuy DO Work Phone: Plan of Treatment Date Care Activity Detail Author Start: 12-12-2023 End: 12-12-2023 Patient encounter procedure 12/12/2023 3:50 PM EST Routine [facility] [address] [place] [address] Vitor Daley, DO [address] [place] [address] [facility] Start: 11-10-2023 End: 11-10-2024 ABO/Rh ABO/Rh Lab Routine Missed menses Expected: 11/10/2023 (Approximate), Expires: 11/10/2024 [facility] Comment on above: Expected: 11/10/2023 (Approximate), Expires: 11/10/2024 Start: 11-10-2023 End: 11-10-2024 Blood type and Indirect antibody screen panel - Blood Type and screen Lab Routine Missed menses Expected: 11/10/2023 (Approximate), Expires: 11/10/2024 [facility] Work Phone: Comment on above: Expected: 11/10/2023 (Approximate), Expires: 11/10/2024 Start: 11-10-2023 End: 11-10-2024 US Pelvis transvaginal US OB transvaginal Imaging Routine Missed menses Expected: 11/10/2023 (Approximate), Expires: 11/10/2024 [facility] Comment on above: Expected: 11/10/2023 (Approximate), Expires: 11/10/2024 Start: 06-10-2023 Influenza vaccination Influenza Vacc ine (#1) [facility] Bacteria identified in Urine by Culture Urine culture Microbiology Routine Missed menses Ordered: 11/10/2023 [facility] Comment on above: Ordered: 11/10/2023 CBC W Auto Different ial panel - Blood CBC and differential Lab Routine Missed menses Ordered: 11/10/2023 [facility] Comment on above: Ordered: 11/10/2023 Hemoglobin A1c measurement Hemoglobin A1c Lab Routine Missed menses Ordered: 11/10/2023 [facility] Comment on above: Ordered: 11/10/2023 Hepatitis B virus surface Ag [Presence] in Serum or Plasma by Immunoassay Hepatitis B surface antigen Lab Routine Missed menses Ordered: 11/10/2023 [facility] Comment on above: Ordered: 11/10/2023 Hepatitis C virus Ab [Presence] in Serum or Plasma by Immunoassay Hepatitis C antibody Lab Routine Missed menses Ordered: 11/10/2023 [facility] Comment on above: Ordered: 11/10/2023 HIV-1/HIV-2 antigen/antibody combination immunoassay HIV-1 and HIV-2 antibodies Lab Routine Missed menses Ordered: 11/10/2023 [facility] Comment on above: Ordered: 11/10/2023 Reagin Ab [Presence] in Serum by RPR RPR Lab Routine Missed menses Ordered: 11/10/2023 [facility] Comment on above: Ordered: 11/10/2023 Rubella antibody, IgG Rubella an tibody, IgG Lab Routine Missed menses Ordered: 11/10/2023 [facility] Comment on above: Ordered: 11/10/2023 Payers Date Payer Category Payer Private Health Insurance MILAGRO MAURO [id number] 2023-Present [address] [place] [address] [id number] 1998 Unknown [id number] .593 1998 Unknown [id number] .593 1998 Unknown [id number] .593 1998 Unknown [id number] [id number] .593 1998 Unknown [id number] [id number] .1259 1998 Unknown [id number] [id number] .1259 1998 Unknown [id number] .1259 1998 Unknown [id number] [id number] .1259 1998 Unknown [id number] [id number] .1259 1998 Unknown [id number] .1259 1961 Private Health Insurance [id number] Social History Date Type Detail Facility Start: 10-04-2023 [facility] History [...] History of Present illness Narrative 11-10-2023 Nona SantanaAIYANA - 11/10/2023 2:00 PM EST Note Date [...] migraine without status migrainosus, not intractable (CMS/HCC) documented in this encounter [facility] Summary Purpose Family History No Family History Records FoundNo Family History Records Found Advance Directives No Advanced Directives Records FoundNo Advanced Directives Records Found Additional Source Comments INFORMATION SOURCE (unrecogn ized section and content) DATE CREATED AUTHOR 12/27/2022 [facility] DATE CREATED AUTHOR AUTHOR'S ORGANIZ ATION 03/08/2024 [facility] EPIC Reason for Visit (unrecogniz ed section and content) Reason Comments Amenorrhea Care Teams (unrecognized sec tion and content) Commercial Credit Head Relationship Specialty Start Date End Date Archie Chaudhari MD [address] [facility] [address] [place] [address] PCP - General Internal Medicine 02/15/23 FOR [...] BE BASED ON THE PRIMARY CLINICAL RECORDS. [facility]. provides no warranty or guarantee of the accuracy or completeness of information in this document.
[2024-03-31 09:22] LABS: Basophils Percent Auto 0.4 % (0.2-2.0); Eosinophils Absolute Auto 0.1 10^3/uL (0.0-0.7); Eosinophils Percent Auto 1.2 % (0.9-7.0); Hemoglobin 10.3 g/dL (12.0-16.0); Immature Granulocytes Abs Auto 0.04 10^3/uL (0.00-0.03); Immature Granulocytes Pct Auto 0.5 % (0.0-0.5); Lymphocytes Absolute Auto 1.7 10^3/uL (1.2-3.8); Lymphocytes Percent Auto 22.3 % (20.5-60.0); Mean Corpuscular HGB Conc 33.2 g/dL (29.9-35.2); Mean Corpuscular Hemoglobin 30.7 pg (26.7-34.0); Mean Corpuscular Volume 92.3 fL (81.0-99.0); Mean Platelet Volume 9.9 fL (9.5-13.5); Monocytes Absolute Auto 0.5 10^3/uL (0.3-0.8); Monocytes Percent Auto 6.6 % (1.7-12.0); Neutrophils Absolute Auto 5.2 10^3/uL (1.4-6.5); Platelet Count 186 10^3/uL (150-450); Red Blood Count 3.36 10^6/uL (4.20-5.40); Red Cell Distribution Width 12.5 % (11.0-15.0); White Blood Count 7.5 10^3/uL (4.0-11.0)
[2024-03-31 10:02] LABS: Glucose 1 Hour 160 mg/dL (<130)
== END 2024-03-31 08:12 | disposition home or self-care (01) ==
LOC: LAB 08:11
PROVIDERS: PCP Internal Medicine; Visit Provider Obstetrics & Gynecology
DX: Z13.1 Encounter for screening for diabetes mellitus (principal)
CPT/HCPCS: 36415; 82950; 85025

== ENCOUNTER 2024-04-17 12:00 | Outpatient (OUT) | payer OTHER, SELFPAY ==
[2024-04-17 12:22] LABS: Glucose Fasting 83 mg/dL (<95)
[2024-04-17 13:40] LABS: Glucose 1 Hour 179 mg/dL (<180)
[2024-04-17 14:33] LABS: Glucose 2 Hour 164 mg/dL (<155)
[2024-04-17 15:36] LABS: Glucose 3 Hour 113 mg/dL (<140)
== END 2024-04-17 12:01 | disposition home or self-care (01) ==
LOC: LAB 12:00
PROVIDERS: PCP Internal Medicine; Visit Provider Obstetrics & Gynecology
DX: R73.09 Other abnormal glucose (principal)
CPT/HCPCS: 36415; 82951; 82952

== ENCOUNTER 2024-05-03 08:13 | Outpatient (OUT) | payer OTHER, SELFPAY ==
--- NOTE | 2024-05-03 08:16 | US_ITS ---
[address] [address] Patient Name: PAUL CRUZ MRN: [id number] date: 2000 Sex: F Assigned Patient Location: [facility] Current Patient Location: [facility] Accession/Order Number: [id number] Exam Date: 05/03/2024 08:16 Report Date: 05/03/2024 09:44 At the request of: VITOR NAZARIO Procedure: US OB growth EXAMINATION: US OB growth HISTORY: LARGE FOR GESTATIONAL AGE COMPARISON: No relevant comparison available. FINDINGS: Heart Rate: 146 bpm Amniotic Fluid Volume: 15.6 cm, largest pocket 6.7 cm Number: 1 Position: Cephalic presentation, longitudinal lie BIOMETRY: BPD: 7.90 cm; 31 weeks 5 days; 28.20 % HC: 29.92 cm; 33 weeks 1 day; 38.90 % AC: 27.62 cm; 31 weeks 5 days; 34.90 % FL: 6.27 cm; 32 weeks 3 days; 45.70 % EFW: 1922.43 g; 36.50 %, 4 lbs. 3 oz. FL/AC: 22.70 FL/BPD: 79.37 HC/AC: 1.08 GESTATIONAL AGE: Age by EDC: 32 weeks 1 day REJI by EDC: 2024-06-27 Age by US: 32 weeks 2 days REJI by US: 2024-06-26 US/US OB growth IMPRESSION: Normal interval growth Electronically authenticated by: ROBERTO MORFIN Date: 05/03/2024 09:44
--- OUTSIDE RECORDS SUMMARY | 2024-05-03 08:17 | XMS_ITS | CCD ---
Author Organization [facility] Care Team Providers Care Traffic Court Magistrate Name Role Phone THUY, VITOR Admitting Unavailable THUY, VITOR Attending Unavailable LORI, DR TOTH Primary Care Unavailable THUY, VITOR Consulting Unavailable NAHED ., NARGIS Admitting Unavailable NAHED ., NARGIS Attending Unavailable REQUEST, DR MICHEL LISTED Primary Care Unavaillise MORFIN, DR ROBERTO Lynch Consulting Unavailable NAHED ., NARGIS Consulting Unavailable NAHED ., NARGIS Admitting Unavailable NAHED ., NARGIS Attending Unavailable LORI, DR TOTH Primary Care Unavailable NAHED ., NARGIS Consulting Unavailable THUY, VITOR Admitting Unavailable THUY, VITOR Attending Unavailable LORI, DR TOTH Primary Care Unavailable THUY, VITOR Consulting Unavailable Archie Chaudhari MD Primary Care Provider [phone] THUY, VITOR Attending Unavailable NAHED, NARGIS Attending Unavailable THUY, VITOR Attending Unavailable THUY, VITOR Attending Unavailable THUY, VITOR Attending Unavailable THUY, VITOR Attending Unavailable Allergies Allergy Classification Reported Allergen(s) Allergy Type Date of Onset Reaction(s) Facility (1 source) Amoxicillin Drug Allergy 10-20-2023 [facility] Work Phone: Medications Current Medications Medication Drug [...] Interpretation and review of laboratory results Abnormal [facility] Preg Test, Ur Positive [facility] Health care [facility] Health[facility] e Urinalysis macro (dipstick) panel (U)on 11-10-2023 Bilirubin, UA Negative Negative - 4(70) +++ mg/dL [facility] Blood, UA Positive Negative - 50 Sandeep/mcL [facility] Comment on above: trace Clarity, UA Clear [facility] Color, UA Yellow [facility] Glucose, UA Negative Negative - 1999(110) ++++ mg/dL [facility] Interpretation and review of laboratory results Abnormal [facility] Ketones, UA Positive Negative - 160(16) ++++ mg/dL [facility] Comment on above: 40 mg Leukocytes, UA Negative Negative - 500+++ Husam/mcL [facility] Nitrite, UA Negative Negative - Positive [facility] pH, UA 5.5 5 - 9 [facility] Protein, UA Trace Negative - 1999(20) ++++ mg/dL [facility] Spec Grav, UA 1.030 1 - 1.03 [facility] Urobilinogen, UA 1.0 0.2 - 12 mg/dL [facility] e US PELVIS AND TRANSVAGon US PELVIS [...] by: ROBERTO MORFIN Date: 2022-10-26 16:30 Normal [facility] PAP ACOG PANEL 2: 21 to 29on 10-25-2022 . . Normal [facility] Comment on above: Performed By: #### [id number] #### [facility] [address] [address] [address] Jorge Luis Mena Age Gdln ACOG Testing 21-29 Normal [facility] Comment on above: Performed By: #### [id number] #### [facility] [address] [address] [address] Jorge Luis Mena DIAGNOSIS: Comment Normal [facility] Comment on above: Result Comment: NEGA TIVE FOR INTRAEPITHELIAL LESION OR MALIGNANCY. Performed By: #### [id number] #### [facility] [address] [place] [address] Dr. Jorge Luis Mena Methodology: Comment Normal [facility] Comment on above: Result Comment: This liquid based ThinPrep(R) pap test was screened with the use of an image guided system. Performed By: #### [id number] #### [facility] [address] [place] [address] Dr. Jorge Luis Mena Note: Comment Normal [facility] Comment on above: Result Comment: The Pap smear is a screening test designed to aid in the detection of premalignant and malignant conditions of the uterine cervix. It is not a diagnostic procedure and should not be used as the sole means of detecting cervical cancer. Both false-positive and false-negative reports do occur. . Performed By: #### [id number] #### [facility] [address] [place] [address] Dr. Jorge Luis Mena Performed by: Comment Normal [facility] Comment on above: Result Comment: Yady Dowell, Document Restorer (ASCP) Performed By: #### [id number] #### [facility] [address] [place] [address] Dr. Jorge Luis Mena Reflex Criteria: Comment Normal [facility] Comment on above: Result Comment: The HPV DNA reflex criteria were not met with this specimen result therefore, no HPV testing was performed. . Performed By: #### [id number] #### [facility] [address] [place] [address] Dr. Jorge Luis Mena Specimen adequacy: Comment Normal [facility] Comment on above: Result Comment: Sati sfactory for evaluation. Endocervical and/or squamous metaplastic cells (endocervical component) are present. Performed By: #### [id number] #### [facility] [address] [place] [address] Dr. Jorge Luis Mena CHLAMYDIA/GONOCOCCUS SHANELLE (SW AB/URINE/PAPon 10-23-2022 Chlamydia trachomatis, SHANELLE Negative Normal Negative [facility] Comment on above: Performed By: #### C T/NGNA #### [facility] [address] [place] [address] Dr. Jorge Luis Mena Neisseria gonorrhoeae, SHANELLE Negative Normal Negative [facility] Comment on above: Performed By: #### C T/NGNA #### [facility] [address] [place] [address] Dr. Jorge Luis Mena VAGINITIS/VAGINOSIS DNA PROB Angel 10-22-2022 Nancy species Negative Normal Negative [facility] Comment on above: Performed By: #### V AGINT #### [facility] [address] [place] [address] Dr. Jorge Luis Mena Gardnerella vaginalis Positive Abnormal Negative [facility] Comment on above: Performed By: #### V AGINT #### [facility] [address] [place] [address] Dr. Jorge Luis Mena Trichomonas vaginalis Negative Normal Negative [facility] Comment on above: Performed By: #### V AGINT #### [facility] [address] [place] [address] Dr. Jorge Luis Mena VAGINITIS/VAGINOSIS DNA PROB Angel 08-25-2022 Nancy species Negative Normal Negative [facility] Comment on above: Performed By: #### V AGINT #### [facility] [address] [place] [address] Dr. Jorge Luis Mena Gardnerella vaginalis Negative Normal Negative [facility] Comment on above: Performed By: #### V AGINT #### [facility] [address] [place] [address] Dr. Jorge Luis Mena Trichomonas vaginalis Negative Normal Negative [facility] Comment on above: Performed By: #### V AGINT #### [facility] [address] [place] [address] Dr. Jorge Luis Mena Vital Signs Date Time Vital Sign Value Performing Clinician Sharon yeboah 11-10-2023 14:40-0500 Body mass index (BMI) [Ratio] 35.74 kg/m2 Nom Nurse [facility] 11-10-2023 14:40-0500 Body weight 92.99 kg [facility] Nurse [facility] 11-10-2023 14:40-0500 Diastolic blood pressure 72 mm[Hg] Noms Nurse [facility] 11-10-2023 14:40-0500 Systolic blood pressure 122 mm[Hg] Noms Nurse [facility] Encounters Encounter Date Encounter Type Care Provider Facility Start: 04-18-2024 End: 04-18-2024 ambulatory VITOR THUY Not Available Start: 04-04-2024 End: 04-04-2024 ambulatory VITOR THUY Not Available Start: 03-07-2024 End: 03-07-2024 ambulatory VITOR THUY Not Available Start: 02-08-2024 End: 02-08-2024 ambulatory VITOR THUY Not Available Start: 01-09-2024 End: 01-09-2024 ambulatory NARGIS NAHED Not Available Start: 12-12-2023 End: 12-12-2023 ambulatory [...] PM EST Routine [facility] [address] [place] [id number] ThuyVitor faria, DO [address] [place] [address] [facility] Start: 11-10-2023 End: 11-10-2024 ABO/Rh ABO/Rh Lab Routine Missed menses Expected: 11/10/2023 (Approximate), Expires: 11/10/2024 [facility] Comment on above: Expected: 11/10/2023 (Approximate), Expires: 11/10/2024 Start: 11-10-2023 End: 11-10-2024 Blood type and Indirect antibody screen panel - Blood Type and screen Lab Routine Missed menses Expected: 11/10/2023 (Approximate), Expires: 11/10/2024 [facility] Work Phone: Comment on above: Expected: 11/10/2023 (Approximate), Expires: 11/10/2024 Start: 11-10-2023 End: 11-10-2024 US Pelvis transvaginal US OB transvaginal Imaging Routine Missed menses Expected: 11/10/2023 (Approximate), Expires: 11/10/2024 [facility] Comment on above: Expected: 11/10/2023 (Approximate), Expires: 11/10/2024 Start: 06-10-2023 Influenza vaccination Influenza Vacc ine (#1) [facility] Bacteria identified in Urine by Culture Urine culture Microbiology Routine Missed menses Ordered: 11/10/2023 [facility] Comment on above: Ordered: 11/10/2023 CBC W Auto Different ial panel - Blood CBC and differential Lab Routine Missed menses Ordered: 11/10/2023 [facility] Comment on above: Ordered: 11/10/2023 Hemoglobin A1c measurement Hemoglobin A1c Lab Routine Missed menses Ordered: 11/10/2023 [facility] Comment on above: Ordered: 11/10/2023 Hepatitis B virus surface Ag [Presence] in Serum or Plasma by Immunoassay Hepatitis B surface antigen Lab Routine Missed menses Ordered: 11/10/2023 [facility] Comment on above: Ordered: 11/10/2023 Hepatitis C virus Ab [Presence] in Serum or Plasma by Immunoassay Hepatitis C antibody Lab Routine Missed menses Ordered: 11/10/2023 [facility] Comment on above: Ordered: 11/10/2023 HIV-1/HIV-2 antigen/antibody combination immunoassay HIV-1 and HIV-2 antibodies Lab Routine Missed menses Ordered: 11/10/2023 [facility] Comment on above: Ordered: 11/10/2023 Reagin Ab [Presence] in Serum by RPR RPR Lab Routine Missed menses Ordered: 11/10/2023 [facility] Comment on above: Ordered: 11/10/2023 Rubella antibody, IgG Rubella an tibody, IgG Lab Routine Missed menses Ordered: 11/10/2023 [facility] Comment on above: Ordered: 11/10/2023 Payers Date Payer Category Payer Private Health Insurance MILAGRO MAURO [id number] 2023-Present [address] [place] [address] [id number] 1998 Unknown [id number] .593 1998 Unknown [id number] .593 1998 Unknown [id number] [id number] .593 1998 Unknown [id number] [id number] .593 1998 Unknown [id number] [id number] .1258 1998 Unknown [id number] [id number] .9 1998 Unknown [id number] [id number] .1259 1998 Unknown [id number] [id number] .1258 1998 Unknown [id number] 2.16.840.1.370559.3.579.2 .1259 1998 Unknown [id number] [id number] .1258 1998 Unknown [id number] [id number] .1259 1998 Unknown [id number] [id number] .1259 1961 Private Health Insurance [id number] Social History Date Type Detail Facility Start: 10-04-2023 [facility] History of [...] Other migraine without status migrainosus, not intractable (CMS/[facility]) documented in this encounter [facility] Summary Purpose Family History No Family History Records FoundNo Family History Records Found Advance Directives No Advanced Directives Records FoundNo Advanced Directives Records Found Additional Source Comments INFORMATION SOURCE (unrecogn ized section and content) DATE CREATED AUTHOR 12/27/2022 [facility] DATE CREATED AUTHOR AUTHOR'S ORGANIZ ATION 04/25/2024 [facility] EPIC Reason for Visit (unrecogniz ed section and content) Reason Comments Amenorrhea Care Teams (unrecognized sec tion and content) Traffic Court Magistrate Relationship Specialty Start Date End Date Archie Chaudhari MD [address] [place] [address] PCP - General Internal Medicine 02/15/23 FOR [...] BE BASED ON THE PRIMARY CLINICAL RECORDS. [facility]. provides no warranty or guarantee of the accuracy or completeness of information in this document.
== END 2024-05-03 08:14 | disposition home or self-care (01) ==
LOC: NOMS 08:14
PROVIDERS: PCP Internal Medicine; Visit Provider Obstetrics & Gynecology
DX: O36.63X0 Maternal care for excessive fetal growth, third trimester, not applicable or unspecified (principal); Z3A.32 32 weeks gestation of pregnancy
CPT/HCPCS: 76816

== ENCOUNTER 2024-05-28 15:30 | Emergency (ER) | payer OTHER, SELFPAY ==
[2024-05-28 15:40] VITALS: BP 153/81; PULSE 114; TEMP 37.1; O2SAT 97; BMI 35.4
[2024-05-28 16:15] LABS: Influenza Virus A Antigen Negative; Influenza Virus B Antigen Negative; Internal Control Within Normal Limits; SARS-CoV-2 Ag POSITIVE (NEGATIVE)
[2024-05-28 17:22] VITALS: BP 135/80; PULSE 99; O2SAT 98
--- NOTE | 2024-05-28 18:09 | ED_ITS ---
HPI HPI - General Adult General Stated complaint: Chest Pain/Dizziness - 36 wks [facility] aware Time Seen by Provider: 05/28/24 16:58 Source: patient Mode of arrival: walk-in Limitations: no limitations History of Present Illness HPI narrative: The patient presented to us with 48 hours history of generalized body ache cough and generalized tenderness No shortness of breath she does have some dizziness sometimes standing up but she also have decreased p.o. intake The patient is 36 weeks There is no abdominal pain no nausea no vomiting Related Data Home Medications ?Medication ?Instructions ?Recorded ?Confirmed No Known Home Medications 05/28/24 05/28/24 Allergies Allergy/AdvReac Type Severity Reaction Status Date / Time No Known Drug Allergies Allergy Verified 05/28/24 15:40 Opioid HPI Opioid Management Most Recent Opioid Data: No Data to Display Review of Systems ROS Status of ROS 10 or more systems reviewed and unremark able except as noted in history and below Exam Narrative Exam Narrative: Nurses notes and vital signs reviewed and patient is not hypoxic. General: Well-appearing and in no apparent distress. Skin: Warm, dry, no pallor noted. No rash. Head: Normocephalic, atraumatic. Neck: Supple, non-tender. Eye: Pupils are equal, round and EOMI. No scleral icterus. Ears, Nose, Mouth, and Throat: TM are clear, no nasal mucosal hypertrophy. Ora l mucosa is moist, no posterior oropharynx erythema, uvula is mid-line Cardiovascular: Regular Rate and Rhythm without murmur, gallop or rub. Respiratory: No accessory muscle use or respiratory distress. Lungs are clear to auscultation, no wheezing, rales or rhonchi Chest Wall: no tenderness Back: No midline thoracic or lumbar vertebral tenderness. No CVA tenderness Musculoskeletal: normal ROM, no calf or popliteal tenderness, no lower extremity edema/swelling GI: Abdomen is soft, gravid uterus No masses appreciated. No tenderness to palpation. No rebound, guarding, or rigidity noted. Neurological: A&O x4. No cranial nerve dysfunction observed. No truncal ataxia. Moves all extremities. Sensation intact. Psychiatric: Cooperative and interactive. Normal mood and affect. Constitutional Vital Signs, click to edit/add: Last Vital Signs Temp 98.7 F 05/28/24 15:40 Pulse 99 H 05/28/24 17:22 Resp 16 05/28/24 17:22 BP 135/80 05/28/24 17:22 Pulse Ox 98 05/28/24 17:22 O2 Del Method Room Air 05/28/24 17:22 Course Vital Signs Vital signs: Vital Signs Temperature 98.7 F 05/28/24 15:40 Pulse Rate 114 H 05/28/24 15:40 Respiratory Rate 18 05/28/24 15:40 Blood Pressure 153/81 H 05/28/24 15:40 Pulse Oximetry 97 05/28/24 15:40 Temperature 98.7 F 05/28/24 15:40 Pulse Rate 99 H 05/28/24 17:22 Respiratory Rate 16 05/28/24 17:22 Blood Pressure 135/80 05/28/24 17:22 Pulse Oximetry 98 05/28/24 17:22 Oxygen Delivery Method Room Air 05/28/24 17:22 Medical Decision Making MDM Narrative Medical decision making narrative: Right now the patient was instructed on hydration she is COVID-positive and that explain her symptoms She was offered an IV fluid in case needed but she mentioned that she would just try p.o. intake and hydration Patient to rest from work for the next 5 days and she also to come back in case of any concerning symptoms of shortness of breath The patient is to follow up with primary care physician in next 2-3 days or to return to the emergency department should any of the signs or symptoms worsen or new symptoms develop. The patient agrees with the following Diagnosis and Treatment plan and the patient will be discharged home. Lab Data Labs: Lab Results 05/28/24 Range/Units 15:47 Influenza Type A Ag Negative Influenza Type B Ag Negative SARS-CoV-2 Ag (CV2AG) Positive A (NEGATIVE) Discharge Plan Discharge Stand Alone Forms: Portal Instructions Clinical Impression: COVID-19 Patient Disposition: Home, Self-Care Time of Disposition Decision: 17:08 Condition: Good Prescriptions / Home Meds: No Action No Known Home Medications Print Language: Citizen Of [place] Instructions: COVID-19 (Coronavirus Disease 2019) (ED) Referrals: NAVNEET SANDOVAL [Primary Care Provider] - 1 week Discharge Date/Time: 05/28/24 17:48
== END 2024-05-28 17:48 | disposition home or self-care (01) ==
PROVIDERS: Emergency Provider Emergency Medicine; PCP Internal Medicine
DX: O98.513 Other viral diseases complicating pregnancy, third trimester (principal); U07.1 COVID-19; Z3A.36 36 weeks gestation of pregnancy
CPT/HCPCS: 87804; 87811; 99284

== ENCOUNTER 2024-06-04 07:12 | Outpatient (OUT) | payer OTHER, SELFPAY ==
--- OUTSIDE RECORDS SUMMARY | 2024-06-04 07:14 | XMS_ITS | CCD ---
Author Organization [facility] Care Team Providers Care Biomedical Field Service Engineer Name Role Phone THUY, VITOR Admitting Unavailable [...] Unavailable Archie Chaudhari MD Primary Care Provider [phone] THUY, VITOR Attending Unavailable NAHED, NARGIS Attending Unavailable THUY, VITOR Attending Unavailable THUY, VITOR Attending Unavailable THUY, VITOR Attending Unavailable THUY, VITOR Attending Unavailable NAHED, NARGIS Attending Unavailable THUY, VITOR Attending Unavailable Allergies Allergy Classification Reported Allergen(s) Allergy Type Date of Onset Reaction(s) Facility (1 source) Amoxicillin Drug Allergy 10-20-2023 [facility] Work Phone: Medications Current Medications Medication [...] and review of laboratory results Abnormal [facility] Preg Test, Ur Positive [facility] Urinalysis macro (dipstick) panel (U)on 11-10-2023 Bilirubin, UA Negative Negative - 4(70) +++ mg/dL [facility] Blood, UA Positive Negative - 50 Sandeep/mcL [facility] Comment on above: trace Clarity, UA Clear [facility] re Color, UA Yellow [facility] Free All [facility] Glucose, UA Negative Negative - 1999(110) ++++ mg/dL [facility] Interpretation and review of laboratory results Abnormal [facility] Ketones, UA Positive Negative - 160(16) ++++ mg/dL [facility] Comment on above: 40 mg Leukocytes, UA Negative Negative - 500+++ Husam/mcL [facility] Nitrite, UA Negative Negative - Positive [facility] pH, UA 5.5 5 - 9 [facility] Protein, UA Trace Negative - 1999(20) ++++ mg/dL [facility] Spec Grav, UA 1.030 1 - 1.03 [facility] Urobilinogen, UA 1.0 0.2 - 12 mg/dL [facility] PELVIS AND TRANSVAGon [...] by: ROBERTO MORFIN Date: 2022-10-26 16:30 Normal [facility] PAP ACOG PANEL 2: 21 to 29on 10-25-2022 . . Normal [facility] Comment on above: Performed By: #### [id number] #### [facility] [address] [place] [address] Dr. Jorge Luis Mena Age Gdln ACOG Testing 21-29 Normal [facility] Comment on above: Performed By: #### [id number] #### [facility] [address] [address] [address] Jorge Luis Mena DIAGNOSIS: Comment [facility] Comment on above: Result Comment: NEGA TIVE FOR INTRAEPITHELIAL LESION OR MALIGNANCY. Performed By: #### [id number] #### [facility] [address] [place] [address] Dr. Jorge Luis Mena Methodology: Comment Normal [facility] Comment on above: Result Comment: This liquid based ThinPrep(R) pap test was screened with the use of an image guided system. Performed By: #### [id number] #### [facility] [address] [place] [address] Dr. Jorge Luis Mena Note: Comment Normal [facility] Comment on above: Result Comment: The Pap smear is a screening test designed to aid in the detection of premalignant and malignant conditions of the uterine cervix. It is not a diagnostic procedure and should not be used as the sole means of detecting cervical cancer. Both false-positive and false-negative reports do occur. . Performed By: #### [id number] #### [facility] [address] [place] [address] Dr. Jorge Luis Mena Performed by: Comment Normal [facility] Comment on above: Result Comment: Yady Dowell, Industrial Relations Officer (ASCP) Performed By: #### [id number] #### [facility] [address] [place] [address] Dr. Jorge Luis Mena Reflex Criteria: Comment Normal [facility] Comment on above: Result Comment: The HPV DNA reflex criteria were not met with this specimen result therefore, no HPV testing was performed. . Performed By: #### [id number] #### [facility] [address] [place] [address] Dr. Jorge Luis Mena Specimen adequacy: Comment Normal [facility] Comment on above: Result Comment: Sati sfactory for evaluation. Endocervical and/or squamous metaplastic cells (endocervical component) are present. Performed By: #### [id number] #### [facility] [address] [place] [address] Dr. Jorge Luis Mena CHLAMYDIA/GONOCOCCUS SHANELLE (SW AB/URINE/PAPon 10-23-2022 Chlamydia trachomatis, SHANELLE Negative Normal Negative [facility] Comment on above: Performed By: #### C T/NGNA #### [facility] [address] [place] [address] Dr. Jorge Luis Mena Neisseria gonorrhoeae, SHANELLE Negative Normal Negative [facility] Comment on above: Performed By: #### C T/NGNA #### [facility] [address] [place] [address] Dr. Jorge Luis Mena VAGINITIS/VAGINOSIS DNA PROB Angel 10-22-2022 Nancy species Negative Normal Negative [facility] Comment on above: Performed By: #### V AGINT #### [facility] [address] [place] [address] Dr. Jorge Luis Mena Gardnerella vaginalis Positive Abnormal Negative [facility] Comment on above: Performed By: #### V AGINT #### [facility] [address] [place] [address] Dr. Jorge Luis Mena Trichomonas vaginalis Negative Normal Negative [facility] Comment on above: Performed By: #### V AGINT #### [facility] [address] [place] [address] Dr. Jorge Luis Mena VAGINITIS/VAGINOSIS DNA PROB Angel 08-25-2022 Nancy species Negative Normal Negative [facility] Comment on above: Performed By: #### V AGINT #### [facility] [address] [place] [address] Dr. Jorge Luis Mena Gardnerella vaginalis Negative Normal Negative [facility] Comment on above: Performed By: #### V AGINT #### [facility] [address] [place] [address] Dr. Jorge Luis Mena Trichomonas vaginalis Negative Normal Negative [facility] Comment on above: Performed By: #### V AGINT #### [facility] [address] [place] [address] Dr. Jorge Luis Mena Vital Signs Date Time Vital Sign Value Performing Clinician Faci lity 11-10-2023 14:40-0500 Body mass index (BMI) [Ratio] 35.74 kg/m2 [facility] 11-10-2023 14:40-0500 Body weight 92.99 kg [facility] Nurse [facility] 11-10-2023 14:40-0500 Diastolic blood pressure 72 mm[Hg] [facility] 11-10-2023 14:40-0500 Systolic blood pressure 122 mm[Hg] [facility] Encounters Encounter Date Encounter Type Care Provider Facility Start: 05-16-2024 End: 05-16-2024 ambulatory VITOR THUY Not Available Start: 05-03-2024 End: 05-03-2024 ambulatory NARGIS NAHED Not Available Start: 04-18-2024 End: 04-18-2024 ambulatory VITOR THUY [...] 7w1d Start: 10-26-2022 End: 10-27-2022 ambulatory NARGIS NAHED . Facility: Start: 10-20-2022 End: 10-20-2022 ambulatory NARGIS NAHED . Facility:[facility] Start: 08-23-2022 End: 08-23-2022 ambulatory VITOR THUY Facility: Procedures Date Procedure Procedure Detail Performing Clinician Start: 11-10-2023 End: 11-10-2023 Urnls dip stick/tablet rgnt non-auto w/o micrscp Vitor Thuy DO Work Phone: Plan of Treatment Date Care Activity Detail Author Start: 12-12-2023 End: 12-12-2023 Patient encounter procedure 12/12/2023 3:50 PM EST Routine [facility] [address] [place] [address] Vitor Daley, [address] [place] [address] [place] [address] [facility] Start: 11-10-2023 End: 11-10-2024 ABO/Rh ABO/Rh Lab Routine Missed menses Expected: 11/10/2023 (Approximate), Expires: 11/10/2024 [facility] Comment on above: Expected: 11/10/2023 (Approximate), Expires: 11/10/2024 Start: 11-10-2023 End: 11-10-2024 Blood type and Indirect antibody screen panel - Blood Type and screen Lab Routine Missed menses Expected: 11/10/2023 (Approximate), Expires: 11/10/2024 [facility] Work Phone: Comment on above: Expected: 11/10/2023 (Approximate), Expires: 11/10/2024 Start: 11-10-2023 End: 11-10-2024 US Pelvis transvaginal US OB transvaginal Imaging Routine Missed menses Expected: 11/10/2023 (Approximate), Expires: 11/10/2024 [facility] Comment on above: Expected: 11/10/2023 (Approximate), Expires: 11/10/2024 Start: 06-10-2023 Influenza vaccination Influenza Vacc ine (#1) [facility] Bacteria identified in Urine by Culture Urine culture Microbiology Routine Missed menses Ordered: 11/10/2023 [facility] Comment on above: Ordered: 11/10/2023 CBC W Auto Different ial panel - Blood CBC and differential Lab Routine Missed menses Ordered: 11/10/2023 [facility] Comment on above: Ordered: 11/10/2023 Hemoglobin A1c measurement Hemoglobin A1c Lab Routine Missed menses Ordered: 11/10/2023 [facility] Comment on above: Ordered: 11/10/2023 Hepatitis B virus surface Ag [Presence] in Serum or Plasma by Immunoassay Hepatitis B surface antigen Lab Routine Missed menses Ordered: 11/10/2023 [facility] Comment on above: Ordered: 11/10/2023 Hepatitis C virus Ab [Presence] in Serum or Plasma by Immunoassay Hepatitis C antibody Lab Routine Missed menses Ordered: 11/10/2023 [facility] Comment on above: Ordered: 11/10/2023 HIV-1/HIV-2 antigen/antibody combination immunoassay HIV-1 and HIV-2 antibodies Lab Routine Missed menses Ordered: 11/10/2023 [facility] Comment on above: Ordered: 11/10/2023 Reagin Ab [Presence] in Serum by RPR RPR Lab Routine Missed menses Ordered: 11/10/2023 [facility] Comment on above: Ordered: 11/10/2023 Rubella antibody, IgG Rubella an tibody, IgG Lab Routine Missed menses Ordered: 11/10/2023 [facility] Comment on above: Ordered: 11/10/2023 Payers Date Payer Category Payer Private Health Insurance [employer]AGRO MAURO [id number] 2023-Present [address] [place] [address] [id number] 1998 Unknown [id number] [id number] .59 1998 Unknown [id number] 2.16.840.1.503840.3.579.2 .59 1998 Unknown [id number] 2.16.840.1.684415.3.579.2 .593 1998 Unknown [id number] 2.16.840.1.860732.3.579.2 .593 1998 Unknown [id number] 2.16.840.1.173758.3.579.2 .1259 1998 Unknown [id number] 2.16.840.1.644248.3.579.2 .125 1998 Unknown [id number] 2.16.840.1.091286.3.579.2 .1259 1998 Unknown [id number] 2.16.840.1.805527.3.579.2 .125 1998 Unknown [id number] 2.16.840.1.276573.3.579.2 .9 1998 Unknown [id number] 2.16.840.1.895611.3.579.2 .9 1998 Unknown [id number] 2.16.840.1.958362.3.579.2 .9 1998 Unknown [id number] 2.16.840.1.871942.3.579.2 .1258 1998 Unknown [id number] 2.16.840.1.826930.3.579.2 .1258 1998 Unknown [id number] 2.16.840.1.587618.3.579.2 .1259 1959 Private Health Insurance [id number] Social History Date Type Detail Facility Start: 10-04-2023 Tobacco smoking stat [facility] Smokes tobacco daily [facility] History of [...] Nona Santana MA documented in this encounter [facility] Evaluation note Note Date & Type Note Facility Evaluation note Diagnosis Missed menses Nausea Nausea alone Other migraine without status migrainosus, not intractable ([facility]) documented in this encounter [facility] Summary Purpose Family History No Family History Records FoundNo Family History Records Found Advance Directives No Advanced Directives Records FoundNo Advanced Directives Records Found Additional Source Comments INFORMATION SOURCE (unrecogn ized section and content) DATE CREATED AUTHOR 12/27/2022 [facility] DATE CREATED AUTHOR AUTHOR'S ORGANIZ ATION 05/19/2024 [facility] EPIC Reason for Visit (unrecogniz ed section and content) Reason Comments Amenorrhea Care Teams (unrecognized sec tion and content) Biomedical Field Service Engineer Relationship Specialty Start Date End Date Archie Chaudhari MD [address] [facility] [address] [place] [address] PCP - General Internal Medicine 02/15/23 FOR [...] BE BASED ON THE PRIMARY CLINICAL RECORDS. [facility] [email or web address] [facility]. provides no warranty or guarantee of the accuracy or completeness of information in this document.
== END 2024-06-04 07:13 | disposition home or self-care (01) ==
LOC: FBCO 07:12
PROVIDERS: PCP Internal Medicine; Visit Provider Obstetrics & Gynecology
DX: Z34.93 Encounter for supervision of normal pregnancy, unspecified, third trimester (principal)
CPT/HCPCS: 87081; 87150

== ENCOUNTER 2024-06-04 21:37 | Outpatient (REF) | payer OTHER, SELFPAY ==
--- OUTSIDE RECORDS SUMMARY | 2024-06-04 21:39 | XMS_ITS | CCD ---
Author Organization [facility] Care Team Providers Care Disk Recordist Name Role Phone THUY, VITOR Admitting Unavailable [...] Unavailable LORI, DR TOTH Primary Care Unavailable NHAED ., NARGIS Consulting Unavailable THUY, VITOR Admitting Unavailable THUY, VITOR Attending Unavailable LORI, DR TOTH Primary Care Unavailable THUY, VITOR Consulting Unavailable Archie Chaudhari MD Primary Care Provider [phone] THUY, VITOR Attending Unavailable NAHED, NARGIS Attending Unavailable THUY, VITOR Attending Unavailable THUY, VITOR Attending Unavailable THUY, VITOR Attending Unavailable THUY, VITOR Attending Unavailable NAHED, NARGIS Attending Unavailable THUY, VITOR Attending Unavailable Allergies Allergy Classification Reported Allergen(s) Allergy Type Date of Onset Reaction(s) Facility (1 source) Amoxicillin Drug Allergy 10-20-2023 [facility] Work Phone: Medications Current Medications Medication [...] Interpretation and review of laboratory results Abnormal [facility] Preg Test, Ur Positive [facility]inalysis macro (dipstick) panel (U)on 11-10-2023 Bilirubin, UA Negative Negative - 4(70) +++ mg/dL [facility] Blood, UA Positive Negative - 50 Sandeep/mcL [facility] Comment on above: trace Clarity, UA Clear [facility] re Color, UA Yellow [facility] Glucose, UA Negative Negative - 1999(110) ++++ mg/dL [facility] Interpretation and review of laboratory results Abnormal [facility] Ketones, UA Positive Negative - 160(16) ++++ mg/dL [facility] Comment on above: 40 mg Leukocytes, UA Negative Negative - 500+++ Husam/mcL [facility] Nitrite, UA Negative Negative - Positive [facility] pH, UA 5.5 5 - 9 [facility] Protein, UA Trace Negative - 1999(20) ++++ mg/dL [facility] Spec Grav, UA 1.030 1 - 1.03 [facility] Urobilinogen, UA 1.0 0.2 - 12 mg/[facility] PELVIS AND TRANSVAGon [...] by: ROBERTO MORFIN Date: 2022-10-26 16:30 Normal [facility] PAP ACOG PANEL 2: 21 to 29on 10-25-2022 . . Normal [facility] Comment on above: Performed By: #### [id number] #### [facility] [address] [place] [address] Dr. Jorge Luis Mena Age Gdln ACOG Testing 21-29 Normal [facility] Comment on above: Performed By: #### [id number] #### [facility] [address] [address] [address] Jorge Luis Mena DIAGNOSIS: Comment [facility] Comment on above: Result Comment: NEGA TIVE FOR INTRAEPITHELIAL LESION OR MALIGNANCY. Performed By: #### [id number] #### [facility] [address] [place] [address] Dr. Jorge Luis Mena Methodology: Comment Normal [facility] Comment on above: Result Comment: This liquid based ThinPrep(R) pap test was screened with the use of an image guided system. Performed By: #### [id number] #### [facility] [address] [place] [address] Dr. Jorge Luis Mena Note: Comment Normal [facility] Comment on above: Result Comment: The Pap smear is a screening test designed to aid in the detection of premalignant and malignant conditions of the uterine cervix. It is not a diagnostic procedure and should not be used as the sole means of detecting cervical cancer. Both false-positive and false-negative reports do occur. . Performed By: #### [id number] #### [facility] [address] [place] [address] Dr. Jorge Luis Mena Performed by: Comment Normal [facility] Comment on above: Result Comment: Yady Dowell, Lab Specialist (ASCP) Performed By: #### [id number] #### [facility] [address] [place] [address] Dr. Jorge Luis Mena Reflex Criteria: Comment Normal [facility] Comment on above: Result Comment: The HPV DNA reflex criteria were not met with this specimen result therefore, no HPV testing was performed. . Performed By: #### 4 [id number] #### [facility] [address] [place] [address] Dr. Jorge Luis Mena Specimen adequacy: Comment Normal [facility] Comment on above: Result Comment: Sati sfactory for evaluation. Endocervical and/or squamous metaplastic cells (endocervical component) are present. Performed By: #### [id number] #### [facility] [address] [place] [address] Dr. Jorge Luis Mena CHLAMYDIA/GONOCOCCUS SHANELLE (SW AB/URINE/PAPon 10-23-2022 Chlamydia trachomatis, SHANELLE Negative Normal Negative [facility] Comment on above: Performed By: #### C T/NGNA #### [facility] [address] [place] [address] Dr. Jorge Luis Mena Neisseria gonorrhoeae, SHANELLE Negative Normal Negative [facility] Comment on above: Performed By: #### C T/NGNA #### [facility] [address] [place] [address] Dr. Jorge Luis Mena VAGINITIS/VAGINOSIS DNA PROB Angel 10-22-2022 Nancy species Negative Normal Negative [facility] Comment on above: Performed By: #### V AGINT #### [facility] [address] [place] [address] Dr. Jorge Luis Mena Gardnerella vaginalis Positive Abnormal Negative [facility] Comment on above: Performed By: #### V AGINT #### [facility] [address] [place] [address] Dr. Jorge Luis Mena Trichomonas vaginalis Negative Normal Negative [facility] Comment on above: Performed By: #### V AGINT #### [facility] [address] [place] [address] Dr. Jorge Luis Mena VAGINITIS/VAGINOSIS DNA PROB Angel 08-25-2022 Nancy species Negative Normal Negative [facility] Comment on above: Performed By: #### V AGINT #### [facility] [address] [place] [address] Dr. Jorge Luis Mena Gardnerella vaginalis Negative Normal Negative [facility] Comment on above: Performed By: #### V AGINT #### [facility] [address] [place] [address] Dr. Jorge Luis Mena Trichomonas vaginalis Negative Normal Negative [facility] Comment on above: Performed By: #### V AGINT #### [facility] [address] [place] [address] Dr. Jorge Luis Mena Vital Signs Date Time Vital Sign Value Performing Clinician Faci lity 11-10-2023 14:40-0500 Body mass index (BMI) [Ratio] 35.74 kg/m2 [facility] 11-10-2023 14:40-0500 Body weight 92.99 kg [facility] Nurse [facility] 11-10-2023 14:40-0500 Diastolic blood pressure 72 [...] PM EST Routine [facility] [address] [facility] [place] [address] Vitor Daley, [address] [place] [address] [place] [address] [facility] Start: 11-10-2023 End: 11-10-2024 ABO/Rh ABO/Rh Lab Routine Missed menses Expected: 11/10/2023 (Approximate), Expires: 11/10/2024 [facility] Comment on above: Expected: 11/10/2023 (Approximate), Expires: 11/10/2024 Start: 11-10-2023 End: 11-10-2024 Blood type and Indirect antibody screen panel - Blood Type and screen Lab Routine Missed menses Expected: 11/10/2023 (Approximate), Expires: 11/10/2024 [facility] Work Phone: Comment on above: Expected: 11/10/2023 (Approximate), Expires: 11/10/2024 Start: 11-10-2023 End: 11-10-2024 US Pelvis transvaginal US OB transvaginal Imaging Routine Missed menses Expected: 11/10/2023 (Approximate), Expires: 11/10/2024 [facility] Comment on above: Expected: 11/10/2023 (Approximate), Expires: 11/10/2024 Start: 06-10-2023 Influenza vaccination Influenza Vacc ine (#1) [facility] Bacteria identified in Urine by Culture Urine culture Microbiology Routine Missed menses Ordered: 11/10/2023 [facility] Comment on above: Ordered: 11/10/2023 CBC W Auto Different ial panel - Blood CBC and differential Lab Routine Missed menses Ordered: 11/10/2023 [facility] Comment on above: Ordered: 11/10/2023 Hemoglobin A1c measurement Hemoglobin A1c Lab Routine Missed menses Ordered: 11/10/2023 [facility] Comment on above: Ordered: 11/10/2023 Hepatitis B virus surface Ag [Presence] in Serum or Plasma by Immunoassay Hepatitis B surface antigen Lab Routine Missed menses Ordered: 11/10/2023 [facility] Comment on above: Ordered: 11/10/2023 Hepatitis C virus Ab [Presence] in Serum or Plasma by Immunoassay Hepatitis C antibody Lab Routine Missed menses Ordered: 11/10/2023 [facility] Comment on above: Ordered: 11/10/2023 HIV-1/HIV-2 antigen/antibody combination immunoassay HIV-1 and HIV-2 antibodies Lab Routine Missed menses Ordered: 11/10/2023 [facility] Comment on above: Ordered: 11/10/2023 Reagin Ab [Presence] in Serum by RPR RPR Lab Routine Missed menses Ordered: 11/10/2023 [facility] Comment on above: Ordered: 11/10/2023 Rubella antibody, IgG Rubella an tibody, IgG Lab Routine Missed menses Ordered: 11/10/2023 [facility] Comment on above: Ordered: 11/10/2023 Payers Date Payer Category Payer Private Health Insurance [employer]AG[employer]URO [id number] 2023-Present [address] [place] [address] [id number] 1998 Unknown [id number] [id number] .59 1998 Unknown [id number] 2.16.840.1.985429.3.579.2 .59 1998 Unknown [id number] 2.16.840.1.315573.3.579.2 .593 1998 Unknown [id number] 2.16.840.1.236336.3.579.2 .593 1998 Unknown [id number] 2.16.840.1.734417.3.579.2 .1259 1998 Unknown [id number] 2.16.840.1.446225.3.579.2 .125 1998 Unknown [id number] 2.16.840.1.343750.3.579.2 .1259 1998 Unknown [id number] 2.16.840.1.601615.3.579.2 .125 1998 Unknown [id number] 2.16.840.1.961451.3.579.2 .9 1998 Unknown [id number] 2.16.840.1.757786.3.579.2 .9 1998 Unknown [id number] 2.16.840.1.468405.3.579.2 .9 1998 Unknown [id number] 2.16.840.1.713842.3.579.2 .1258 1998 Unknown [id number] 2.16.840.1.281262.3.579.2 .1258 1998 Unknown [id number] 2.16.840.1.163257.3.579.2 .1259 1961 Private Health Insurance [id number] Social History Date Type Detail Facility Start: 10-04-2023 Tobacco smoking stat [facility] Smokes tobacco daily [facility] History of [...] Nona Santana MA documented in this encounter [facility] Evaluation note Note Date & Type Note Facility Evaluation note Diagnosis Missed menses Nausea Nausea alone Other migraine without status migrainosus, not intractable (CMS/FORMERLY [facility]) documented in this encounter [facility] Summary Purpose Family History No Family History Records FoundNo Family History Records Found Advance Directives No Advanced Directives Records FoundNo Advanced Directives Records Found Additional Source Comments INFORMATION SOURCE (unrecogn ized section and content) DATE CREATED AUTHOR 12/27/2022 [facility] DATE CREATED AUTHOR AUTHOR'S ORGANIZ ATION 05/19/2024 [facility] Reason for Visit (unrecogniz ed section and content) Reason Comments Amenorrhea Care Teams (unrecognized sec tion and content) Disk Recordist Relationship Specialty Start Date End Date Archie Chaudhari MD [address] [facility] [address] [place] [address] PCP - General Internal Medicine 02/15/23 FOR [...] BE BASED ON THE PRIMARY CLINICAL RECORDS. [facility]. provides no warranty or guarantee of the accuracy or completeness of information in this document.
== END 2024-06-04 21:38 | disposition home or self-care (01) ==
LOC: LAB 21:37
PROVIDERS: PCP Internal Medicine; Visit Provider Obstetrics & Gynecology
DX: Z34.93 Encounter for supervision of normal pregnancy, unspecified, third trimester (principal)
CPT/HCPCS: 36415; 87081; 87150

== ENCOUNTER 2024-06-21 15:47 | Inpatient (IN) | payer OTHER, SELFPAY ==
[2024-06-21] VITALS (13 sets, daily range): BP systolic 107–134; BP diastolic 59–80; PULSE 58–91; TEMP 36.5–36.7
--- OUTSIDE RECORDS SUMMARY | 2024-06-21 15:59 | XMS_ITS | CCD ---
Author Organization [facility] Care Team Providers Care Director Of [facility] Name Role Phone THUY, VITOR Admitting Unavailable [...] Unavailable Archie Chaudhari MD Primary Care Provider THUY, VITOR Attending Unavailable NAHED, NARGIS Attending Unavailable THUY, VITOR Attending Unavailable THUY, VITOR Attending Unavailable THUY, VITOR Attending Unavailable THUY, VITOR Attending Unavailable NAHED, NARGIS Attending Unavailable THUY, VITOR Attending Unavailable THUY, VITOR Attending Unavailable THUY, VITOR Attending Unavailable Allergies Allergy Classification Reported Allergen(s) Allergy Type Date of Onset Reaction(s) Facility (1 source) Amoxicillin Drug Allergy 10-20-2023 [facility] Work Phone: Medications Current Medications Medication Drug [...] Interpretation and review of laboratory results Abnormal [facility] Healthcare Preg Test, Ur Positive [facility] Health care [facility] Urinalysis macro (dipstick) panel (U)on 11-10-2023 Bilirubin, UA Negative Negative - 4(70) +++ mg/dL [facility] Blood, UA Positive Negative - 50 Sandeep/mcL [facility] Comment on above: trace Clarity, UA Clear [facility] re Color, UA Yellow [facility] Gl[facility], [facility]A Negative Negative - 1999(110) ++++ mg/dL [facility] Interpretation and review of laboratory results Abnormal [facility] Ketones, UA Positive Negative - 160(16) ++++ mg/dL [facility] Comment on above: 40 mg Leukocytes, UA Negative Negative - 500+++ Husam/mcL [facility] Nitrite, UA Negative Negative - Positive [facility] pH, UA 5.5 5 - 9 [facility] e Protein, UA Trace Negative - 1999(20) ++++ mg/dL [facility] Spec Grav, UA 1.030 1 - 1.03 [facility] Urobilinogen, UA 1.0 0.2 - 12 mg/dL [facility] US PELVIS AND TRANSVAGon US [...] by: ROBERTO MORFIN Date: 2022-10-26 16:30 Normal [facility] PAP ACOG PANEL 2: 21 to 29on 10-25-2022 . . Normal [facility] Comment on above: Performed By: #### [id number] #### [facility] [address] [place] [id number] [address] Jorge Luis Mena Age Gdln ACOG Testing 21-29 Normal [facility] Comment on above: Performed By: #### [id number] #### [facility] [address] [place] [address] Dr. Jorge Luis Mena DIAGNOSIS: Comment Normal [facility] Comment on above: Result Comment: NEGA TIVE FOR INTRAEPITHELIAL LESION OR MALIGNANCY. Performed By: #### [id number] #### [facility] [address] [place] [address] Dr. Jorge Luis Mena Methodology: Comment Normal [facility] Comment on above: Result Comment: This liquid based ThinPrep(R) pap test was screened with the use of an image guided system. Performed By: #### [id number] #### [facility] [address] [place] [address] Dr. Jorge Luis Mena Note: Comment Normal [facility] Comment on above: Result Comment: The Pap smear is a screening test designed to aid in the detection of premalignant and malignant conditions of the uterine cervix. It is not a diagnostic procedure and should not be used as the sole means of detecting cervical cancer. Both false-positive and false-negative reports do occur. . Performed By: #### [id number] #### [facility] [address] [place] [address] Dr. Jorge Luis Mena Performed by: Comment Normal [facility] Comment on above: Result Comment: Yady Dowell, Industrial Commercial Groundskeeper (ASCP) Performed By: #### [id number] #### [facility] [address] [place] [address] Dr. Jorge Luis Mena Reflex Criteria: Comment [facility] Comment on above: Result Comment: The HPV DNA reflex criteria were not met with this specimen result therefore, no HPV testing was performed. . Performed By: #### [id number] #### [facility] [address] [place] [address] Dr. Jorge Luis Mena Specimen adequacy: Comment Normal [facility] Comment on above: Result Comment: Sati sfactory for evaluation. Endocervical and/or squamous metaplastic cells (endocervical component) are present. Performed By: #### [id number] #### [facility] [address] [place] [address] Dr. Jorge Luis Mena CHLAMYDIA/GONOCOCCUS SHANELLE (SW AB/URINE/PAPon 10-23-2022 Chlamydia trachomatis, SHANELLE Negative Normal Negative [facility] Comment on above: Performed By: #### C T/NGNA #### [facility] [address] [place] [address] Dr. Jorge Luis Mena Neisseria gonorrhoeae, SHANELLE Negative Normal Negative [facility] Comment on above: Performed By: #### C T/NGNA #### [facility] [address] [place] [address] Dr. Jorge Luis Mena VAGINITIS/VAGINOSIS DNA PROB Angel 10-22-2022 Nancy species Negative Normal Negative [facility] Comment on above: Performed By: #### V AGINT #### [facility] [address] [place] [address] Dr. Jorge Luis Mena Gardnerella vaginalis Positive Abnormal Negative [facility] Comment on above: Performed By: #### V AGINT #### [facility] [address] [place] [address] Dr. Jorge Luis Mena Trichomonas vaginalis Negative Normal Negative [facility] Comment on above: Performed By: #### V AGINT #### [facility] [address] [place] [address] Dr. Jorge Luis Mena VAGINITIS/VAGINOSIS DNA PROB Angel 08-25-2022 Nancy species Negative Normal Negative [facility] Comment on above: Performed By: #### V AGINT #### [facility] [address] [place] [address] Dr. Jorge Luis Mena Gardnerella vaginalis Negative Normal Negative [facility] Comment on above: Performed By: #### V AGINT #### [facility] [address] [place] [address] Dr. Jorge Luis Mena Trichomonas vaginalis Negative Normal Negative [facility] Comment on above: Performed By: #### V AGINT #### [facility] [address] [place] [address] Dr. Jorg eLuis Mena Vital Signs Date Time Vital Sign Value Performing Clinician Faci lity 11-10-2023 14:40-0500 Body mass index (BMI) [Ratio] 35.74 kg/m2 [facility] Healthcare 11-10-2023 14:40-0500 Body weight 92.99 kg [facility] 11-10-2023 14:40-0500 Diastolic blood pressure 72 mm[Hg] [facility] 11-10-2023 14:40-0500 Systolic blood pressure 122 mm[Hg] [facility] Encounters Encounter Date Encounter Type Care Provider Facility Start: 06-13-2024 End: 06-13-2024 ambulatory VITOR THUY Not Available Start: 06-04-2024 End: 06-04-2024 ambulatory VITOR THYU Not Available Start: 05-16-2024 End: 05-16-2024 ambulatory [...] encounter procedure 12/12/2023 3:50 PM EST Routine [facility] [address] [place] [id number] Vitor Daley, DO [address] [place] [address] [facility] Start: 11-10-2023 End: 11-10-2024 ABO/Rh ABO/Rh Lab Routine Missed menses Expected: 11/10/2023 (Approximate), Expires: 11/10/2024 [facility] Healthcare Comment on above: Expected: 11/10/2023 (Approximate), Expires: 11/10/2024 Start: 11-10-2023 End: 11-10-2024 Blood type and Indirect antibody screen panel - Blood Type and screen Lab Routine Missed menses Expected: 11/10/2023 (Approximate), Expires: 11/10/2024 [facility] Work Phone: Comment on above: Expected: 11/10/2023 (Approximate), Expires: 11/10/2024 Start: 11-10-2023 End: 11-10-2024 US Pelvis transvaginal US OB transvaginal Imaging Routine Missed menses Expected: 11/10/2023 (Approximate), Expires: 11/10/2024 [facility] Healthcare Comment on above: Expected: 11/10/2023 (Approximate), Expires: 11/10/2024 Start: 06-10-2023 Influenza vaccination Influenza Vacc ine (#1) [facility] Bacteria identified in Urine by Culture Urine culture Microbiology Routine Missed menses Ordered: 11/10/2023 [facility] Comment on above: Ordered: 11/10/2023 CBC W Auto Different ial panel - Blood CBC and differential Lab Routine Missed menses Ordered: 11/10/2023 [facility] Comment on above: Ordered: 11/10/2023 Hemoglobin A1c measurement Hemoglobin A1c Lab Routine Missed menses Ordered: 11/10/2023 [facility] Comment on above: Ordered: 11/10/2023 Hepatitis B virus surface Ag [Presence] in Serum or Plasma by Immunoassay Hepatitis B surface antigen Lab Routine Missed menses Ordered: 11/10/2023 [facility] Comment on above: Ordered: 11/10/2023 Hepatitis C virus Ab [Presence] in Serum or Plasma by Immunoassay Hepatitis C antibody Lab Routine Missed menses Ordered: 11/10/2023 [facility] Comment on above: Ordered: 11/10/2023 HIV-1/HIV-2 antigen/antibody combination immunoassay HIV-1 and HIV-2 antibodies Lab Routine Missed menses Ordered: 11/10/2023 [facility] Comment on above: Ordered: 11/10/2023 Reagin Ab [Presence] in Serum by RPR RPR Lab Routine Missed menses Ordered: 11/10/2023 [facility] Comment on above: Ordered: 11/10/2023 Rubella antibody, IgG Rubella an tibody, IgG Lab Routine Missed menses Ordered: 11/10/2023 [facility] Comment on above: Ordered: 11/10/2023 Payers Date Payer Category Payer Private Health Insurance MILAGRO MAURO [id number] 2023-Present [address] [place] [address] [id number] 1998 Unknown [id number] [id number] .59 1998 Unknown [id number] [id number] .593 1998 Unknown [id number] [id number] .593 1998 Unknown [id number] 2.16.840.1.555654.3.579.2 .59 1998 Unknown [id number] 2.16.840.1.307112.3.579.2 .1259 1998 Unknown [id number] 2.16.840.1.298892.3.579.2 .1259 1998 Unknown [id number] 2.16.840.1.257678.3.579.2 .9 1998 Unknown [id number] 2.16.840.1.074526.3.579.2 .9 1998 Unknown [id number] 2.16.840.1.649738.3.579.2 .1258 1998 Unknown [id number] 2.16.840.1.972590.3.579.2 .1258 1998 Unknown [id number] 2.16.840.1.138420.3.579.2 .1258 1998 Unknown [id number] 2.16.840.1.308306.3.579.2 .1258 1998 Unknown [id number] 2.16.840.1.766918.3.579.2 .1258 1998 Unknown [id number] 2.16.840.1.226215.3.579.2 .1258 1998 Unknown [id number] 2.16.840.1.646165.3.579.2 .1258 1998 Unknown [id number] 2.16.840.1.139756.3.579.2 .9 1959 Private Health Insurance [id number] Social History Date Type Detail Facility Start: 10-04-2023 Tobacco smoking stat [facility] Smokes tobacco daily [facility] [...] without status migrainosus, not intractable (CMS/[facility]) documented in this encounter [facility] Summary Purpose Family History No Family History Records FoundNo Family History Records Found Advance Directives No Advanced Directives Records FoundNo Advanced Directives Records Found Additional Source Comments INFORMATION SOURCE (unrecogn ized section and content) DATE CREATED AUTHOR 12/27/2022 [facility] DATE CREATED AUTHOR AUTHOR'S ORGANIZ ATION 06/15/2024 [facility] EPIC Reason for Visit (unrecogniz ed section and content) Reason Comments Amenorrhea Care Teams (unrecognized sec tion and content) Director Of [facility] Service [facility] Relationship Specialty Start Date End Date Archie Chaudhari MD [address] [facility] [address] [place] [address] PCP - General Internal Medicine 02/15/23 FOR [...] BE BASED ON THE PRIMARY CLINICAL RECORDS. [employer] [facility]. provides no warranty or guarantee of the accuracy or completeness of information in this document.
[2024-06-21 17:16] LABS: Hemoglobin 10.6 g/dL (12.0-16.0); Mean Corpuscular HGB Conc 33.1 g/dL (29.9-35.2); Mean Corpuscular Hemoglobin 29.9 pg (26.7-34.0); Mean Corpuscular Volume 90.4 fL (81.0-99.0); Mean Platelet Volume 12.8 fL (9.5-13.5); Platelet Count 179 10^3/uL (150-450); Red Blood Count 3.54 10^6/uL (4.20-5.40); Red Cell Distribution Width 12.1 % (11.0-15.0); White Blood Count 9.4 10^3/uL (4.0-11.0)
[2024-06-21 17:31] LABS: Amphetamine Screen Urine NEGATIVE (NEGATIVE); Barbiturates Screen Urine NEGATIVE (NEGATIVE); Benzodiazepines Screen Urine NEGATIVE (NEGATIVE); Buprenorphine Screen Urine NEGATIVE (NEGATIVE); Cannabinoid Screen Urine NEGATIVE (NEGATIVE); Cocaine Screen Urine NEGATIVE (NEGATIVE); Methadone Screen Urine NEGATIVE (NEGATIVE); Methamphetamines Screen Urine NEGATIVE (NEGATIVE); Opiate Screen Urine NEGATIVE (NEGATIVE); Oxycodone Screen Urine NEGATIVE (NEGATIVE); Phencyclidine Screen Urine NEGATIVE (NEGATIVE); Tricyclic Antidepressant Urine NEGATIVE (NEGATIVE)
[2024-06-21] MEDS: DINOPROSTONE 10 MG VAG INSERT.ER VAGINAL (17:35)
[2024-06-21] MEDS: ONDANSETRON PF 4 MG/2 ML VIAL IV (21:49)
[2024-06-21] MEDS: ACETAMINOPHEN 325 MG TABLET 650 MG PO (23:16)
[2024-06-22] VITALS (56 sets, daily range): BP systolic 96–141; BP diastolic 51–87; PULSE 51–102; TEMP 36.5–36.8
[2024-06-22] MEDS: 0.9 % SODIUM CHLORIDE 1,000 ML 1000 ML IV (00:05)
[2024-06-22] MEDS: ROPIVACAINE HCL/PF 400 MG/200 ML PREMIX 8 MG EPIDURAL (01:01)
[2024-06-22] MEDS: 0.9 % SODIUM CHLORIDE 1,000 ML 125 ML IV ×2 (01:03→09:01)
[2024-06-22] MEDS: OXYTOCIN/0.9 % SODIUM CHLORIDE 10 UNITS/500 ML PLAST..BAG 6 UNIT IV (07:45)
--- NOTE | 2024-06-22 10:51 | PM.OBPRCVD ---
Procedure Intrapartal events: None Induction method: per misoprostol protocol Delivery augmentation: pitocin Delivery monitor: external FHT and external uterine Route of delivery: Episiotomy Description: none L&D Laceration Description: periurethral - 1st degree and perineal - 1st degree Delivery repair: Vicryl Estimated blood loss (mL): 300 Anesthesia type: Epidural Disposition: PACU Infant Delivery date: 06/22/24 Gender: male presentation: vertex Placental delivery description: Spontaneous cord description: 3 Vessels
[2024-06-22] MEDS: OXYTOCIN/0.9 % SODIUM CHLORIDE 20 UNITS/1,000 ML PLAST..BAG 125 UNIT IV (10:58)
[2024-06-22] MEDS: IBUPROFEN 600 MG TABLET PO ×2 (13:41→20:12)
[2024-06-22] MEDS: GLYCERIN/WITCH HAZEL PADS 1 PAD TOPICAL (13:42)
[2024-06-22] MEDS: BENZOCAINE/MENTHOL 85 GRAM SPRAY BOTTLE 1 APPLIC TOPICAL (13:42)
--- NOTE | 2024-06-22 19:21 | W.PC.ACHO ---
Registration Status: ADM IN Primary Language: Icelandic Preferred Language: Icelandic Reported off regarding difficulties, meds & post delivery status. Active Medications Generic Name Dose Route Start Last Admin Trade Name Michaelq PRN Reason Stop Dose Admin Acetaminophen 650 mg 06/21/24 21:42 06/21/24 23:16 Acetaminophen 325 Mg Tablet PO 650 mg Q4H PRN Administration Mild Pain Acetaminophen 650 mg 06/22/24 10:52 Acetaminophen 325 Mg Tablet PO Q6H PRN Mild Pain Al Hydroxide/Mg Hydroxide 2,400 mg 06/22/24 10:52 Magnesium Hydroxide 2,400 Mg/10 Ml Oral.Susp PO Q6H PRN Dyspepsia Benzocaine/Menthol 1 applic 06/22/24 10:52 06/22/24 13:42 Benzocaine/Menthol 85 Gram Coulter Bottle TOPICAL 1 applic Q2H PRN Administration Pain Carboprost Tromethamine 250 mcg 06/21/24 16:20 Carboprost Tromethamine 250 Mcg/Ml 1 Ml Vial IM 06/23/24 16:20 Q15M PRN Bleeding Diphenhydramine HCl 25 mg 06/21/24 23:59 Diphenhydramine Hcl 50 Mg/Ml Vial IV 06/23/24 00:00 Q6H PRN Itching Diphtheria/Pertussis/Tetanus Vacc 0.5 ml 06/24/24 09:00 Adacel Diph,Pertuss(Acell),Tet Vac/Pf 0.5 Ml Adult Syringe IM 06/24/24 09:01 .ONCE ONE Docusate Sodium 100 mg 06/23/24 09:00 Docusate Sodium 100 Mg Capsule PO BID DHARMESH Ephedrine Sulfate 5 mg 06/21/24 23:59 Ephedrine Sulfate 50 Mg/Ml Vial IV 06/23/24 00:00 Q5M PRN Blood Pressure - Low Tranexamic Acid 1,000 mg/ 110 mls @ 440 mls/hr 06/21/24 16:20 Sodium Chloride IV 06/23/24 16:20 ONCE PRN Uterine Bleeding Sodium Chloride 1,000 mls @ 125 mls/hr 06/21/24 16:30 06/22/24 10:33 Sodium Chloride 0.9% 1,000 Ml IV Infused .Q8H PRN Infusion Labor Induction Oxytocin/Sodium Chloride 10 units in 500 mls @ 6 mls/hr 06/22/24 06:00 06/22/24 10:33 Pitocin 10 Unit/500 Ml-Ns IV Infused TITR DHARMESH Infusion Protocol 2 MILLIUNIT/MIN Ropivacaine/Sodium Chloride 400 mg in 200 mls @ 6 mls/hr 06/21/24 23:45 06/22/24 01:01 Naropin 0.2% 400 Mg/200 Ml Bag EPIDURAL 8 mls/hr Q24H DHARMESH Administration Ibuprofen 600 mg 06/22/24 10:52 06/22/24 13:41 Ibuprofen 600 Mg Tablet PO 600 mg Q6H PRN Administration Moderate Pain Lidocaine 1 ml 06/21/24 16:20 Lidocaine Hcl 1% 200 Mg/20 Ml Mdv INJ 06/23/24 16:22 ONCE PRN Pain Lidocaine 5 ml 06/21/24 23:59 Lidocaine Hcl 2% Pf 100 Mg/5 Ml Vial INJ 06/23/24 00:00 Q1H PRN epidural Measles/Mumps/Rubella Vaccine Live 0.5 ml 06/24/24 09:00 Measles,Mumps,Rubella Vacc/Pf 0.5 Ml Vial SQ 06/24/24 09:01 .ONCE ONE Methylergonovine Maleate 0.2 mg 06/21/24 16:20 Methylergonovine Maleate 0.2 Mg/Ml Ampule IM 06/23/24 16:20 ONCE PRN Uterine Contractility/Contract Methylergonovine Maleate 0.2 mg 06/21/24 16:20 Methylergonovine Maleate 0.2 Mg Tablet PO 06/23/24 16:20 Q4H PRN Uterine Contractility/Contract Misoprostol 600 mcg 06/21/24 16:20 Misoprostol 100 Mcg Tablet PO 06/23/24 16:20 ONCE PRN Uterine Bleeding Misoprostol 800 mcg 06/21/24 16:20 Misoprostol 100 Mcg Tablet SL 06/23/24 16:20 ONCE PRN Uterine Bleeding Misoprostol 1,000 mcg 06/21/24 16:20 Misoprostol 100 Mcg Tablet ME 06/23/24 16:20 ONCE PRN Uterine Bleeding Nalbuphine HCl 10 mg 06/21/24 16:20 Nalbuphine Hcl 10 Mg/Ml Ampule IV Q3H PRN Pain Naloxone HCl 0.4 mg 06/21/24 23:59 Naloxone Hcl 0.4 Mg/Ml Vial IV 06/23/24 00:00 ONCE PRN respiratory depression Ondansetron HCl 4 mg 06/21/24 16:20 06/21/24 21:49 Ondansetron Pf 4 Mg/2 Ml Vial IV 4 mg Q6H PRN Administration Nausea And Vomiting Ondansetron HCl 4 mg 06/21/24 16:20 Ondansetron 4 Mg Rapdis Tablet SL Q6H PRN Nausea And Vomiting Oxytocin 10 unit 06/21/24 16:20 Oxytocin 10 Unit/Ml Vial IM 06/23/24 16:20 ONCE PRN Bleeding Senna 17.2 mg 06/22/24 20:00 Sennosides 8.6 Mg Tablet PO QHS PRN Constipation Simethicone 80 mg 06/22/24 10:52 Simethicone 80 Mg Tab.Chew PO QID PRN Abdominal Distention Temazepam 15 mg 06/22/24 10:52 Temazepam 15 Mg Capsule PO QHS PRN Sleep Witch Janet/Glycerin 1 pad 06/22/24 10:52 06/22/24 13:42 Glycerin/Witch Janet Pads TOPICAL 1 pad Q2H PRN Administration Pain Diet Category Date Time Status Regular Consistency Diet Diet 06/22/24 10:52 Active Respiratory Oxygen Delivery Method Room Air Cardiology Heart Sounds Strong,Regular
[2024-06-23] VITALS (7 sets, daily range): BP systolic 105–125; BP diastolic 69–83; PULSE 66–77; TEMP 36.2–36.5
[2024-06-23] MEDS: IBUPROFEN 600 MG TABLET PO ×4 (01:54→20:06)
[2024-06-23 06:31] LABS: Basophils Percent Auto 0.3 % (0.2-2.0); Eosinophils Absolute Auto 0.1 10^3/uL (0.0-0.7); Eosinophils Percent Auto 0.8 % (0.9-7.0); Hematocrit 29.3 % (36.0-48.0); Hemoglobin 9.9 g/dL (12.0-16.0); Immature Granulocytes Abs Auto 0.03 10^3/uL (0.00-0.03); Immature Granulocytes Pct Auto 0.3 % (0.0-0.5); Lymphocytes Absolute Auto 2.8 10^3/uL (1.2-3.8); Mean Corpuscular HGB Conc 33.8 g/dL (29.9-35.2); Mean Corpuscular Hemoglobin 30.6 pg (26.7-34.0); Mean Corpuscular Volume 90.4 fL (81.0-99.0); Mean Platelet Volume 12.5 fL (9.5-13.5); Monocytes Absolute Auto 0.9 10^3/uL (0.3-0.8); Monocytes Percent Auto 8.5 % (1.7-12.0); Neutrophils Absolute Auto 6.8 10^3/uL (1.4-6.5); Neutrophils Percent Auto 64.1 % (43.0-75.0); Platelet Count 140 10^3/uL (150-450); Red Blood Count 3.24 10^6/uL (4.20-5.40); Red Cell Distribution Width 12.4 % (11.0-15.0); White Blood Count 10.7 10^3/uL (4.0-11.0)
[2024-06-23] MEDS: DOCUSATE SODIUM 100 MG CAPSULE PO ×2 (08:17→20:06)
--- NOTE | 2024-06-23 10:42 | PM.OBPN ---
OB - PN: Subj Subjective Patient comments: no complaints, tolerating diet and flatus present infant status: doing well Exam Narrative Exam Narrative: voicing no complaints Constitutional Vital Signs, click to edit/add: Last Vital Signs Temp 97.7 F 06/23/24 08:00 Pulse 72 06/23/24 07:57 Resp 14 06/23/24 08:00 BP 109/71 06/23/24 07:57 O2 Del Method Room Air 06/23/24 08:00 Common normals: no apparent distress, average body habitus, oriented x3, no limitations, healthy appearing, alert and well nourished HENMI Common normals: normocephalic and head/scalp atraumatic Eye Pupil: PERRL and accommodation reflex normal Neck & C-Spine Common normals: full ROM and supple Respiratory Common normals: normal respiratory effort Auscultation: clear to auscultation bilaterally Cardio Common normals: regular rate and regular rhythm GI Common normals: Normal to inspection, nondistended, normoactive bowel sounds present, soft to palpation and non-tender Common normals: no CVA tenderness Back & Pelvis Common normals: no thoracic nor lumbar tenderness Extremity Common normals: normal to inspection, full ROM and no calf tenderness Neuro Common normals: oriented x3, CN's II-XII intact bilaterally, moves all extremities, no focal motor deficits and no sensory deficits noted Motor exam: strength 5/5 throughout Psych Common normals: mental status grossly normal, thought process normal, cooperative, affect normal, speech normal and activity/motor behavior normal Results Labs Labs: Short CBC 06/23/24 Range/Units 06:26 WBC 10.7 (4.0-11.0) 10^3/uL Hgb 9.9 L (12.0-16.0) g/dL Hct 29.3 L (36.0-48.0) % Plt Count 140 L (150-450) 10^3/uL OB - PN: A/P Assessment and Plan (1) Normal vaginal delivery: Assessment and Plan: nonfocal clinical exam, vss, breast feeding, voicing no complaints Plan s/p vaginal delivery with small perineal repair doing well Plan - Vaginal Delivery day: 1 Plan: routine care Time Spent with Patient Time: Total time spent is greater than 50% in coordination of care (as documented) at patient's floor/unit and/or counseling patient: Total time spent with greater than 50% in coordination of care (as documented) at patient's floor/unit and/or counseling patient: less than 15 minutes
[2024-06-23] MEDS: ACETAMINOPHEN 325 MG TABLET 650 MG PO ×2 (11:16→18:04)
[2024-06-24] MEDS: IBUPROFEN 600 MG TABLET PO ×2 (02:11→08:19)
[2024-06-24] MEDS: DOCUSATE SODIUM 100 MG CAPSULE PO (08:20)
[2024-06-24 09:13] VITALS: BP 118/81; PULSE 93
[2024-06-24 09:27] VITALS: TEMP 36.8
--- NOTE | 2024-06-24 10:26 | PC.NURSE ---
While latching to breast, mother has large round, soft and pendulous breasts, successfully latches to left breast and will nurse suck and swallow with stimulation for 5 minutes. Infant will not sustain latch to right breast no matter positioning. Infant cries, arches back and pushes away at breast. Breasts are supported with baby blanket roll prior to latching infant to either side. pt taught how to properly how to use electric breast pump and for how long and to feed back to what is pumped via oral syringe.
--- NOTE | 2024-06-24 11:46 | PM.OBPN ---
OB - PN: Subj Subjective Patient comments: no complaints and pain well controlled [place] status: doing well Exam Constitutional Vital Signs, click to edit/add: Last Vital Signs Temp 98.3 F 06/24/24 09:27 Pulse 93 H 06/24/24 09:13 Resp 16 06/24/24 09:24 BP 118/81 06/24/24 09:13 O2 Del Method Room Air 06/24/24 09:24 Documenting provider has reviewed patient's vital signs: yes Common normals: no apparent distress Respiratory Common normals: clear to auscultation bilaterally Cardio Common normals: regular rate and regular rhythm GI Common normals: Normal to inspection, nondistended, normoactive bowel sounds present Extremity Common normals: no calf tenderness OB - PN: A/P Assessment and Plan (1) Normal vaginal delivery: Plan - Vaginal Delivery day: 1 Plan: routine care, discharge home and follow up 6 weeks Time Spent with Patient Time: Total time spent is greater than 50% in coordination of care (as documented) at patient's floor/unit and/or counseling patient: Total time spent with greater than 50% in coordination of care (as documented) at patient's floor/unit and/or counseling patient: less than 15 minutes
== END 2024-06-24 15:20 | disposition home or self-care (01) | DRG 807 ==
PROVIDERS: Admitting Provider Obstetrics & Gynecology; PCP Internal Medicine; Visit Provider Obstetrics & Gynecology
DX: O24.420 Gestational diabetes mellitus in childbirth, diet controlled (principal); Z37.0 Single live birth; O70.0 First degree perineal laceration during delivery; O71.82 Other specified trauma to perineum and vulva; Z3A.39 39 weeks gestation of pregnancy; Z87.891 Personal history of nicotine dependence; Z86.16 Personal history of COVID-19
CPT/HCPCS: 36415; 51702; 59050; 59410; 80307; 85025; 85027; 86850; 86900; 86901; 96365; 96366; 96375; J2405; J2795

== ENCOUNTER 2024-06-27 08:17 | Outpatient (OUT) | payer OTHER, SELFPAY ==
--- OUTSIDE RECORDS SUMMARY | 2024-06-18 07:04 | XMS_ITS | CCD ---
Author Organization [facility] Care Team Providers Care Tobacco Baler Name Role Phone THUY, VITOR Admitting Unavailable [...] Unavailable Archie Chaudhari MD Primary Care Provider [phone] THUY, VITOR Attending Unavailable NAHED, NARGIS Attending Unavailable THUY, VITOR Attending Unavailable THUY, VITOR Attending Unavailable THUY, VITOR Attending Unavailable THUY, VITOR Attending Unavailable NAHED, NARGIS Attending Unavailable THUY, VITOR Attending Unavailable THUY, VITOR Attending Unavailable THUY, VITOR Attending Unavailable Allergies Allergy Classification Reported Allergen(s) Allergy Type Date of Onset Reaction(s) Facility (1 source) Amoxicillin Drug Allergy 10-20-2023 [facility] Work Phone: Medications Current Medications Medication Drug [...] Interpretation and review of laboratory results Abnormal [facility] Preg Test, Ur Positive [facility] Urinalysis macro (dipstick) panel (U)on 11-10-2023 Bilirubin, UA Negative Negative - 4(70) +++ mg/dL [facility] Blood, UA Positive Negative - 50 Sandeep/mcL [facility] Comment on above: trace Clarity, UA Clear [facility] re Color, [facility]A [facility], [facility]A Negative Negative - 1999(110) ++++ mg/dL [facility] Interpretation and review of laboratory results Abnormal [facility] Ketones, UA Positive Negative - 160(16) ++++ mg/dL [facility] Comment on above: 40 mg Leukocytes, UA Negative Negative - 500+++ Husam/mcL [facility] Nitrite, UA Negative Negative - Positive [facility] pH, UA 5.5 5 - 9 [facility] e Protein, UA Trace Negative - 1999(20) ++++ mg/dL [facility] Spec Grav, UA 1.030 1 - 1.03 [facility] Urobilinogen, UA 1.0 0.2 - 12 mg/dL [facility] US PELVIS AND TRANSVAGon US [...] by: ROBERTO MORFIN Date: 2022-10-26 16:30 Normal [facility] PAP ACOG PANEL 2: 21 to 29on 10-25-2022 . . Normal [facility] Comment on above: Performed By: #### [id number] #### [facility] [address] [place] [address] [id number] [address] Jorge Luis Mena Age Gdln ACOG Testing 21-29 Normal [facility] Comment on above: Performed By: #### [id number] #### [facility] [address] [place] [address] Dr. Jorge Luis Mena DIAGNOSIS: Comment Normal [facility] Comment on above: Result Comment: NEGA TIVE FOR INTRAEPITHELIAL LESION OR MALIGNANCY. Performed By: #### [id number] #### [facility] [address] [place] [address] Dr. Jorge Luis Mena Methodology: Comment Normal [facility] Comment on above: Result Comment: This liquid based ThinPrep(R) pap test was screened with the use of an image guided system. Performed By: #### [id number] #### [facility] [address] [place] [address] Dr. Jorge Luis Mena Note: Comment Normal [facility] Comment on above: Result Comment: The Pap smear is a screening test designed to aid in the detection of premalignant and malignant conditions of the uterine cervix. It is not a diagnostic procedure and should not be used as the sole means of detecting cervical cancer. Both false-positive and false-negative reports do occur. . Performed By: #### [id number] #### [facility] [address] [place] [address] Dr. Jorge Luis Mena Performed by: Comment Normal [facility] Comment on above: Result Comment: Yady Dowell, Manager Of Case (ASCP) Performed By: #### [id number] #### [facility] [address] [place] [address] Dr. Jorge Luis Mena Reflex Criteria: Comment [facility] Comment on above: Result Comment: The HPV DNA reflex criteria were not met with this specimen result therefore, no HPV testing was performed. . Performed By: #### [id number] #### [facility] [address] [place] [address] Dr. Jorge Luis Mena Specimen adequacy: Comment Normal [facility] Comment on above: Result Comment: Sati sfactory for evaluation. Endocervical and/or squamous metaplastic cells (endocervical component) are present. Performed By: #### [id number] #### [facility] [address] [place] [address] Dr. Jorge Luis Mena CHLAMYDIA/GONOCOCCUS SHANELLE (SW AB/URINE/PAPon 10-23-2022 Chlamydia trachomatis, SHANELLE Negative Normal Negative [facility] Comment on above: Performed By: #### C T/NGNA #### [facility] [address] [place] [address] Dr. Jorge Luis Mena Neisseria gonorrhoeae, SHANELLE Negative Normal Negative [facility] Comment on above: Performed By: #### C T/NGNA #### [facility] [address] [place] [address] Dr. Jorge Luis Mena VAGINITIS/VAGINOSIS DNA PROB Angel 10-22-2022 Nancy species Negative Normal Negative [facility] Comment on above: Performed By: #### V AGINT #### [facility] [address] [place] [address] Dr. Jorge Luis Mena Gardnerella vaginalis Positive Abnormal Negative [facility] Comment on above: Performed By: #### V AGINT #### [facility] [address] [place] [address] Dr. Jorge Luis Mena Trichomonas vaginalis Negative Normal Negative [facility] Comment on above: Performed By: #### V AGINT #### [facility] [address] [place] [address] Dr. Jorge Luis Mena VAGINITIS/VAGINOSIS DNA PROB Angel 08-25-2022 Nancy species Negative Normal Negative [facility] Comment on above: Performed By: #### V AGINT #### [facility] [address] [place] [address] Dr. Jorge Luis Mena Gardnerella vaginalis Negative Normal Negative [facility] Comment on above: Performed By: #### V AGINT #### [facility] [address] [place] [address] Dr. Jorge Luis Mena Trichomonas vaginalis Negative Normal Negative [facility] Comment on above: Performed By: #### V AGINT #### [facility] [address] [place] [address] Dr. Jorge Luis Mena Vital Signs Date Time Vital Sign Value Performing Clinician Faci lity 11-10-2023 14:40-0500 Body mass index (BMI) [Ratio] 35.74 kg/m2 [facility] 11-10-2023 14:40-0500 Body weight 92.99 kg [facility] 11-10-2023 14:40-0500 Diastolic blood pressure 72 mm[Hg] [facility] 11-10-2023 14:40-0500 Systolic blood pressure 122 mm[Hg] [facility] Encounters Encounter Date Encounter Type Care Provider Facility Start: 06-13-2024 End: 06-13-2024 ambulatory VITOR THUY Not Available Start: 06-04-2024 End: 06-04-2024 ambulatory VITOR THUY Not Available Start: 05-16-2024 End: 05-16-2024 ambulatory VITOR THUY Not Available Start: 05-03-2024 End: 05-03-2024 ambulatory NARGIS NAHED Not Available Start: 04-18-2024 End: 04-18-2024 ambulatory VITOR THUY Not Available Start: 04-04-2024 End: 04-04-2024 ambulatory VITOR THUY Not Available Start: 03-07-2024 End: 03-07-2024 ambulatory VITOR THUY Not Available Start: 02-08-2024 End: 02-08-2024 ambulatory VITOR THUY Not Available Start: 01-09-2024 End: 01-09-2024 ambulatory NAGRIS NAHED Not Available Start: 12-12-2023 End: 12-12-2023 ambulatory VITOR THUY Not Available Start: 11-10-2023 End: 11-10-2023 ambulatory VITOR THUY Not Available Start: 11-10-2023 End: 11-10-2023 Office outpatient visit 5 minutes [facility] Comment on above: GA: 7w1d Start: 10-26-2022 End: 10-27-2022 ambulatory NARGIS NAHED . Facility: Start: 10-20-2022 End: 10-20-2022 ambulatory NARGIS NAHED . Facility: Start: 08-23-2022 End: 08-23-2022 ambulatory VITOR THUY Facility: Procedures Date Procedure Procedure Detail Performing Clinician Start: 11-10-2023 End: 11-10-2023 Urnls dip stick/tablet rgnt non-auto w/o micrscp Vitor Thuy DO Work Phone: Plan of Treatment Date Care Activity Detail Author Start: 12-12-2023 End: 12-12-2023 Patient encounter procedure 12/12/2023 3:50 PM EST Routine [facility] [address] [place] [id number] Vitor Daley, DO [address] [place] [address] [facility] Start: 11-10-2023 End: 11-10-2024 ABO/Rh ABO/Rh Lab Routine Missed menses Expected: 11/10/2023 (Approximate), Expires: 11/10/2024 [facility] Healthcare Comment on above: Expected: 11/10/2023 (Approximate), Expires: 11/10/2024 Start: 11-10-2023 End: 11-10-2024 Blood type and Indirect antibody screen panel - Blood Type and screen Lab Routine Missed menses Expected: 11/10/2023 (Approximate), Expires: 11/10/2024 [facility] Work Phone: Comment on above: Expected: 11/10/2023 (Approximate), Expires: 11/10/2024 Start: 11-10-2023 End: 11-10-2024 US Pelvis transvaginal US OB transvaginal Imaging Routine Missed menses Expected: 11/10/2023 (Approximate), Expires: 11/10/2024 [facility] Healthcare Comment on above: Expected: 11/10/2023 (Approximate), Expires: 11/10/2024 Start: 06-10-2023 Influenza vaccination Influenza Vacc ine (#1) [facility] Bacteria identified in Urine by Culture Urine culture Microbiology Routine Missed menses Ordered: 11/10/2023 [facility] Comment on above: Ordered: 11/10/2023 CBC W Auto Different ial panel - Blood CBC and differential Lab Routine Missed menses Ordered: 11/10/2023 [facility] Comment on above: Ordered: 11/10/2023 Hemoglobin A1c measurement Hemoglobin A1c Lab Routine Missed menses Ordered: 11/10/2023 [facility] Comment on above: Ordered: 11/10/2023 Hepatitis B virus surface Ag [Presence] in Serum or Plasma by Immunoassay Hepatitis B surface antigen Lab Routine Missed menses Ordered: 11/10/2023 [facility] Comment on above: Ordered: 11/10/2023 Hepatitis C virus Ab [Presence] in Serum or Plasma by Immunoassay Hepatitis C antibody Lab Routine Missed menses Ordered: 11/10/2023 [facility] Comment on above: Ordered: 11/10/2023 HIV-1/HIV-2 antigen/antibody combination immunoassay HIV-1 and HIV-2 antibodies Lab Routine Missed menses Ordered: 11/10/2023 [facility] Comment on above: Ordered: 11/10/2023 Reagin Ab [Presence] in Serum by RPR RPR Lab Routine Missed menses Ordered: 11/10/2023 [facility] Comment on above: Ordered: 11/10/2023 Rubella antibody, IgG Rubella an tibody, IgG Lab Routine Missed menses Ordered: 11/10/2023 [facility] Comment on above: Ordered: 11/10/2023 Payers Date Payer Category Payer Private Health Insurance [employer] [id number] 2023-Present [address] [place] [address] [id number] 1998 Unknown [id number] [id number] .59 1998 Unknown [id number] 2.16.840.1.622472.3.579.2 .593 1998 Unknown [id number] 2.16.840.1.228785.3.579.2 .593 1998 Unknown [id number] 2.16.840.1.336612.3.579.2 .59 1998 Unknown [id number] 2.16.840.1.955546.3.579.2 .1259 1998 Unknown [id number] 2.16.840.1.828832.3.579.2 .1259 1998 Unknown [id number] 2.16.840.1.339663.3.579.2 .9 1998 Unknown [id number] 2.16.840.1.122366.3.579.2 .9 1998 Unknown [id number] 2.16.840.1.665423.3.579.2 .1258 1998 Unknown [id number] 2.16.840.1.717851.3.579.2 .1258 1998 Unknown [id number] 2.16.840.1.824851.3.579.2 .1258 1998 Unknown [id number] 2.16.840.1.170366.3.579.2 .1258 1998 Unknown [id number] 2.16.840.1.753667.3.579.2 .1258 1998 Unknown [id number] 2.16.840.1.443960.3.579.2 .1258 1998 Unknown [id number] 2.16.840.1.183180.3.579.2 .1258 1998 Unknown [id number] 2.16.840.1.862450.3.579.2 .9 1961 Private Health Insurance [id number] Social History Date Type Detail Facility Start: 10-04-[address] [facility] Smokes tobacco daily [facility] History of [...] Other migraine without status migrainosus, not intractable (CMS/[facility]) documented in this encounter [facility] Summary Purpose Family History No Family History Records FoundNo Family History Records Found Advance Directives No Advanced Directives Records FoundNo Advanced Directives Records Found Additional Source Comments INFORMATION SOURCE (unrecogn ized section and content) DATE CREATED AUTHOR 12/27/2022 [facility] DATE CREATED AUTHOR AUTHOR'S ORGANIZ ATION 06/15/2024 [facility] Reason for Visit (unrecogniz ed section and content) Reason Comments Amenorrhea Care Teams (unrecognized sec tion and content) Tobacco Baler Relationship Specialty Start Date End Date Archie Chaudhari MD [address] [facility] [address] [place] [address] PCP - General Internal Medicine 02/15/23 FOR [...] BE BASED ON THE PRIMARY CLINICAL RECORDS. [employer] [facility]. provides no warranty or guarantee of the accuracy or completeness of information in this document.
--- OUTSIDE RECORDS SUMMARY | 2024-06-27 08:37 | XMS_ITS | CCD ---
Author Organization [facility] Care Team Providers Care Database Operator Name Role Phone THUY, VITOR Admitting Unavailable [...] Unavailable Archie Chaudhari MD Primary Care Provider [phone] THUY, VITOR Attending Unavailable NAHED, NARGIS Attending Unavailable THUY, VITOR Attending Unavailable THUY, VITOR Attending Unavailable THUY, VITOR Attending Unavailable THUY, VITOR Attending Unavailable NAHED, NARGIS Attending Unavailable THUY, VITOR Attending Unavailable THUY, VITOR Attending Unavailable THUY, VITOR Attending Unavailable THUY, VITOR Attending Unavailable Allergies Allergy Classification Reported Allergen(s) Allergy Type Date of Onset Reaction(s) Facility (1 source) Amoxicillin Drug Allergy 10-20-2023 [facility] Work Phone: Medications Current Medications Medication [...] Interpretation and review of laboratory results Abnormal [facility] Preg Test, Ur Positive [facility] Urinalysis macro (dipstick) panel (U)on 11-10-2023 Bilirubin, UA Negative Negative - 4(70) +++ mg/dL [facility] Blood, UA Positive Negative - 50 Sandeep/mcL [facility] Comment on above: trace Clarity, UA Clear [facility] re Color, UA Yellow [facility] Glucose, UA Negative Negative - 1999(110) ++++ mg/dL [facility] Interpretation and review of laboratory results Abnormal [facility] Ketones, UA Positive Negative - 160(16) ++++ mg/dL [facility] Comment on above: 40 mg Leukocytes, UA Negative Negative - 500+++ Husam/mcL [facility] Nitrite, UA Negative Negative - Positive [facility] pH, UA 5.5 5 - 9 [facility] e Protein, UA Trace Negative - 1999(20) ++++ mg/dL [facility] Spec Grav, UA 1.030 1 - 1.03 [facility] Urobilinogen, UA 1.0 0.2 - 12 mg/dL [facility] PELVIS [...] by: ROBERTO MORFIN Date: 2022-10-26 16:30 Normal [facility] PAP ACOG PANEL 2: 21 to 29on 10-25-2022 . . Normal [facility] Comment on above: Performed By: #### [id number] #### [facility] [address] [address] [address] Jorge Luis Mena Age Gdln ACOG Testing 21-29 Normal [facility] Comment on above: Performed By: #### [id number] #### [facility] [address] [place] [address] Dr. Jorge Luis Mena DIAGNOSIS: Comment Normal [facility] Comment on above: Result Comment: NEGA TIVE FOR INTRAEPITHELIAL LESION OR MALIGNANCY. Performed By: #### [id number] #### [facility] [address] [place] [address] Dr. Jorge Luis Mena Methodology: Comment [facility] Comment on above: Result Comment: This liquid based ThinPrep(R) pap test was screened with the use of an image guided system. Performed By: #### [id number] #### [facility] [address] [place] [address] Dr. Jorge Luis Mena Note: Comment Normal [facility] Comment on above: Result Comment: The Pap smear is a screening test designed to aid in the detection of premalignant and malignant conditions of the uterine cervix. It is not a diagnostic procedure and should not be used as the sole means of detecting cervical cancer. Both false-positive and false-negative reports do occur. . Performed By: #### [id number] #### [facility] [address] [place] [address] Dr. Jorge Luis Mena Performed by: Comment Normal [facility] Comment on above: Result Comment: Yady Dowell, Production Recorder (ASCP) Performed By: #### [id number] #### [facility] [address] [place] [address] Dr. Jorge Luis Mena Reflex Criteria: Comment Normal [facility] Comment on above: Result Comment: The HPV DNA reflex criteria were not met with this specimen result therefore, no HPV testing was performed. . Performed By: #### [id number] #### [facility] [address] [place] [address] Dr. Jorge Luis Mena Specimen adequacy: Comment Normal [facility] Comment on above: Result Comment: Sati sfactory for evaluation. Endocervical and/or squamous metaplastic cells (endocervical component) are present. Performed By: #### [id number] #### [facility] [address] [place] [address] Dr. Jorge Luis Mena CHLAMYDIA/GONOCOCCUS SHANELLE (SW AB/URINE/PAPon 10-23-2022 Chlamydia trachomatis, SHANELLE Negative Normal Negative [facility] Comment on above: Performed By: #### C T/NGNA #### [facility] [address] [place] [address] Dr. Jorge Luis Mnea Neisseria gonorrhoeae, SHANELLE Negative Normal Negative [facility] Comment on above: Performed By: #### C T/NGNA #### [facility] [address] [place] [address] Dr. Jorge Luis Mena VAGINITIS/VAGINOSIS DNA PROB Angel 10-22-2022 Nancy species Negative Normal Negative [facility] Comment on above: Performed By: #### V AGINT #### [facility] [address] [place] [address] Dr. Jorge Luis Mena Gardnerella vaginalis Positive Abnormal Negative [facility] Comment on above: Performed By: #### V AGINT #### [facility] [address] [place] [address] Dr. Jorge Luis Mena Trichomonas vaginalis Negative Normal Negative [facility] Comment on above: Performed By: #### V AGINT #### [facility] [address] [place] [address] Dr. Jorge Luis Mena VAGINITIS/VAGINOSIS DNA PROB Angel 08-25-2022 Nancy species Negative Normal Negative [facility] Comment on above: Performed By: #### V AGINT #### [facility] [address] [place] [address] Dr. Jorge Luis Mena Gardnerella vaginalis Negative Normal Negative [facility] Comment on above: Performed By: #### V AGINT #### [facility] [address] [place] [address] Dr. Jorge Luis Mena Trichomonas vaginalis Negative Normal Negative [facility] Comment on above: Performed By: #### V AGINT #### [facility] [address] [place] [address] Dr. Jorge Luis Mena Vital Signs Date Time Vital Sign Value Performing Clinician Faci lity 11-10-2023 14:40-0500 Body mass index (BMI) [Ratio] 35.74 kg/m2 [facility] 11-10-2023 14:40-0500 Body weight 92.[address] [facility] 11-10-2023 14:40-0500 Diastolic blood pressure 72 mm[Hg] [facility] Nurse [facility] 11-10-2023 14:40-0500 Systolic blood pressure 122 mm[Hg] [facility] Healthcare Encounters Encounter Date Encounter Type Care Provider Facility Start: 06-20-2024 End: 06-20-2024 ambulatory VITOR THUY Not Available Start: 06-13-2024 End: 06-13-2024 ambulatory VITOR THUY [...] encounter procedure 12/12/2023 3:50 PM EST Routine [facility] [address] [place] [id number] Vitor Daley, DO [address] [place] [address] [facility] Start: 11-10-2023 End: 11-10-2024 ABO/Rh ABO/Rh Lab Routine Missed menses Expected: 11/10/2023 (Approximate), Expires: 11/10/2024 [facility] Healthcare Comment on above: Expected: 11/10/2023 (Approximate), Expires: 11/10/2024 Start: 11-10-2023 End: 11-10-2024 Blood type and Indirect antibody screen panel - Blood Type and screen Lab Routine Missed menses Expected: 11/10/2023 (Approximate), Expires: 11/10/2024 [facility] Healthcare Work Phone: Comment on above: Expected: 11/10/2023 (Approximate), Expires: 11/10/2024 Start: 11-10-2023 End: 11-10-2024 US Pelvis transvaginal US OB transvaginal Imaging Routine Missed menses Expected: 11/10/2023 (Approximate), Expires: 11/10/2024 [facility] Comment on above: Expected: 11/10/2023 (Approximate), Expires: 11/10/2024 Start: 06-10-2023 Influenza vaccination Influenza Vacc ine (#1) [facility] Bacteria identified in Urine by Culture Urine culture Microbiology Routine Missed menses Ordered: 11/10/2023 [facility] Comment on above: Ordered: 11/10/2023 CBC W Auto Different ial panel - Blood CBC and differential Lab Routine Missed menses Ordered: 11/10/2023 [facility] Comment on above: Ordered: 11/10/2023 Hemoglobin A1c measurement Hemoglobin A1c Lab Routine Missed menses Ordered: 11/10/2023 [facility] Comment on above: Ordered: 11/10/2023 Hepatitis B virus surface Ag [Presence] in Serum or Plasma by Immunoassay Hepatitis B surface antigen Lab Routine Missed menses Ordered: 11/10/2023 [facility] Comment on above: Ordered: 11/10/2023 Hepatitis C virus Ab [Presence] in Serum or Plasma by Immunoassay Hepatitis C antibody Lab Routine Missed menses Ordered: 11/10/2023 [facility] Comment on above: Ordered: 11/10/2023 HIV-1/HIV-2 antigen/antibody combination immunoassay HIV-1 and HIV-2 antibodies Lab Routine Missed menses Ordered: 11/10/2023 [facility] Comment on above: Ordered: 11/10/2023 Reagin Ab [Presence] in Serum by RPR RPR Lab Routine Missed menses Ordered: 11/10/2023 [facility] Comment on above: Ordered: 11/10/2023 Rubella antibody, IgG Rubella an tibody, IgG Lab Routine Missed menses Ordered: 11/10/2023 [facility] Comment on above: Ordered: 11/10/2023 Payers Date Payer Category Payer Private Health Insurance [employer] [id number] 2023-Present [address] [place] [address] [id number] 1998 Unknown [id number] [id number] .593 1998 Unknown [id number] 2.16.840.1.953597.3.579.2 .593 1998 Unknown [id number] 2.16.840.1.295058.3.579.2 .593 1998 Unknown [id number] 2.16.840.1.622648.3.579.2 .593 1998 Unknown [id number] 2.16.840.1.682217.3.579.2 .125 1998 Unknown [id number] 2.16.840.1.743976.3.579.2 .1258 1998 Unknown [id number] 2.16.840.1.472415.3.579.2 .1258 1998 Unknown [id number] 2.16.840.1.851310.3.579.2 .1258 1998 Unknown [id number] 2.16.840.1.480111.3.579.2 .1258 1998 Unknown [id number] 2.16.840.1.879519.3.579.2 .1258 1998 Unknown [id number] 2.16.840.1.264959.3.579.2 .1258 1998 Unknown [id number] 2.16.840.1.274406.3.579.2 .1258 1998 Unknown [id number] 2.16.840.1.883889.3.579.2 .1258 1998 Unknown [id number] 2.16.840.1.840792.3.579.2 .1258 1998 Unknown [id number] 2.16.840.1.380097.3.579.2 .1258 1998 Unknown [id number] 2.16.840.1.518243.3.579.2 .1258 1998 Unknown [id number] 2.16.840.1.939246.3.579.2 .9 1961 Private Health Insurance [id number] Social History Date Type Detail Facility Start: [facility]04-[facility]23 [facility] History of [...] pital DATE CREATED AUTHOR AUTHOR'S ORGANIZ ATION 06/22/2024 [facility] EPIC Reason for Visit (unrecogniz ed section and content) Reason Comments Amenorrhea Care Teams (unrecognized sec tion and content) Database Operator Relationship Specialty Start Date End Date Archie Chaudhari MD [address] [facility] [address] [place] [address] PCP - General Internal Medicine 02/15/23 FOR [...] BE BASED ON THE PRIMARY CLINICAL RECORDS. [facility]. provides no warranty or guarantee of the accuracy or completeness of information in this document.
--- NOTE | 2024-06-27 10:50 | PC.NURSE ---
Benitez and 5 day old Abdias arrive for follow up visit with baby's father in attendance. Parents report tired, but living Baby was awake frequently during the night, not fussy, just awake. Mom reports is no longer breast feeding at the breast, but is pumping every 2 hours, obtaining 2-4 oz combined for feeds. Baby will take up to 4 oz,if it's in the bottle . Reviewed appropriate/expected feeding amounts for NB. Demo of slow paced feeding and parents voice understanding. Baby is alert and tracking voices of parents. VSS and assessment WNL, no concerns noted. Slightly jaundiced in color, 11.7 per transcutaneous meter. Parents report 8+ wets and 6+ stools yesterday. Umbilical cord off in diaper upon arrival. Infant has scheduled appointment with PCP this afternoon. Benitez states feels tired and stitches are bothersome, but otherwise feels good. Eating and drinking well as is hungry all the time VSS and assessment WNL. Flange fit today at 21 mm, has been using a 24mm with Spectra pump. Will order correct size flange as needed. No further questions at this time. Family leaves ambulatory, aware to call for concerns and aware of [facility].
[2024-06-27 10:52] VITALS: BP 115/82; PULSE 100; TEMP 36.5; O2SAT 94
== END 2024-06-27 10:10 | disposition home or self-care (01) ==
LOC: FBCO 08:18
PROVIDERS: PCP Internal Medicine; Visit Provider Obstetrics & Gynecology
DX: Z39.2 Encounter for routine postpartum follow-up (principal)

== ENCOUNTER 2024-08-11 09:45 | Outpatient (OUT) | payer OTHER, SELFPAY ==
--- OUTSIDE RECORDS SUMMARY | 2024-08-11 09:47 | XMS_ITS | CCD ---
Author Organization [facility] Inform ion [facility] Care Team Providers Care 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 Name Role Phone THUY, VITOR Admitting Unavailable THUY, VITOR Attending Unavailable DR ARCHIE CHAUDHARI Primary Care Unavailable THUY, VITOR Consulting Unavailable NAHED ., NARGIS Admitting Unavailable NAHED ., NARGIS Attending Unavailable REQUEST, DR MICHEL LISTED Primary Care Unavaillise MORFIN, DR ROBERTO Lynch Consulting Unavailable NAHED ., NARGIS Consulting Unavailable NAHED ., NARGIS Admitting Unavailable NAHED ., NARGIS Attending Unavailable DR ARCHIE CHAUDHARI Primary Care Unavailable NAHED ., NARGIS Consulting Unavailable THUY, VITOR Admitting Unavailable THUY, VITOR Attending Unavailable DR ARCHIE CHAUDHARI Primary Care Unavailable THUY, VITOR Consulting Unavailable Archie Chaudhari MD Primary Care Provider Unallocatceleste STEVENS, [facility] Primary Care Provi sekou Garima Scott NP Unavailable THUY, VITOR Attending Unavailable NAHED, NARGIS Attending Unavailable THUY, VITOR Attending Unavailable THUY, VITOR Attending Unavailable THUY, VITOR Attending Unavailable THUY, VTIOR Attending Unavailable NAHED, NARGIS Attending Unavailable THUY, VITOR Attending Unavailable THUY, VITOR Attending Unavailable THUY, VITOR Attending Unavailable THUY, VITOR Attending Unavailable GARIMA SCOTT Attending Unavailabl e THUY, VITOR Attending Unavailable Allergies Allergy Classification Reported Allergen(s) Allergy Type Date of Onset Reaction(s) Facility (6 sources) Amoxicillin Drug Allergy 10-20-2023 [facility] Healthcare Work Phone: Medications Current Medications Medication Drug Class(es) Dates Sig (Normalized) Sig (Original) Blood Glucose Monitoring Suppl (D-Care Glucometer) w/Device kit (3 sources) Start: 04-18-2024 End: 07-31-2024 Blood Glucose Monitoring Suppl (D-Care Glucometer) w/Device kit Indications: Gestational diabetes mellitus (GDM), antepartum, gestational diabetes method of control unspecified , Elevated glucose tolerance test 1 kit Daily Use four times daily to check FSBS. In the morning prior to breakfast & 1 hour after each meal for a total of 4times daily. 1 kit 04/18/2024 07/31/2024 Discontinued (Therapy completed) Start: 04-18-2024 End: 04-18-2025 [address] Monitoring Sup [address] (D-Care Glucometer) w/Device kit Indications: Gestational diabetes mellitus (GDM), antepartum, gestational diabetes method of control unspecified , Elevated glucose tolerance test 1 kit Daily Use four times daily to check FSBS. In the morning prior to breakfast & 1 hour after each meal for a total of 4times daily. 1 kit 04/18/2024 04/18/2025 Active citalopram 20 mg oral tablet (2 sources) Serotonin Reuptake Inhibitor Start: 08-01-2024 End: 08-01-2025 take 1 tablet by mouth once daily citalopram (CeleXA) 20 MG tablet Indications: Mood disorder (CMS/HCC) Take 1 tablet (20 mg) by mouth Daily 30 tablet 11 08/01/2024 08/01/2025 Active isopropyl alcohol 0.7 ml/ml medicated pad (3 sources) Start: 04-18-2024 End: 07-31-2024 Alcohol Swabs (Alcohol Prep Pad) 70 % pads Indications: Gestational diabetes mellitus (GDM), antepartum, gestational diabetes method of control unspecified , Elevated glucose tolerance test Apply 1 Pad topically Daily Use four times daily to check FSBS. 150 each 3 04/18/2024 07/31/2024 Discontinued (Therapy completed) Magnesium (1 source) Start: 11-10-2023 End: 12-10-2023 [...] hours 120 tablet 1 11/10/2023 02/08/2024 Active polysaccharide iron complex 391 mg oral capsule (5 sources) Start: 04-02-2024 End: 10-29-2024 take 1 capsule by mouth once daily iron polysaccharides (ProFe) 391.3 (180 Fe) MG capsule Indications: Low hemoglobin Take 1 capsule (391.3 mg) by mouth Daily 30 capsule 6 04/02/2024 10/29/2024 Active 27-1 MG tablet (3 sources) End: 07-31-2024 27-1 MG tablet Take by mouth 07/31/2024 Discontinued (Therapy completed) 27-1 MG tablet Take by mouth Active 24 hr divalproex sodium 250 mg extended release oral tablet (1 source) Mood Stabilizer, Anti-epileptic Agent divalproex (Depakot e ER) 250 MG 24 hr tablet 1 (one) time each day at the same time 0 Active Problems Active Problems Problem Classification Problem Date Documented Date Episodic/Chronic Abdominal pain (4 sources) Pelvic and perineal pain; Translations: [PELVIC AND PERINEAL PAIN] Onset: 10-26-2022 Episodic Administrative/social admission (7 sources) First encounter by subject; Translations: [Persons encountering health services in other specified circumstances] Onset: 07-31-2024 07-31-2024 Episodic Deficiency and other anemia (6 sources) Anemia; Translations: [Anemia, unspecified] Onset: 07-31-2024 07-31-2024 Episodic Diabetes mellitus without complication (5 sources) Impaired glucose tolerance; Translations: [Impaired glucose tolerance (oral)] Onset: 06-06-2024 06-06-2024 Episodic Headache; including migraine (6 sources) Migraine; Translations: [Other migraine, not intractable, without status migrainosus] Onset: 06-06-2024 11-10-2023 Chronic Immunizations and screening for infectious disease (2 sources) Encounter for screening for human papillomavirus (HPV); Translations: [Encounter for screening for infections with a predominantly sexual mode of transmission] Onset: 10-21-2022 Episodic Menstrual disorders (1 source) Missed period; Translations: [Irregular menstruation, unspecified] 11-09-2023 Chronic Mood disorders (7 sources) Mixed bipolar affective disorder; Translations: [Bipolar disorder, current episode mixed, unspecified] Onset: 06-06-2024 06-06-2024 Chronic Nausea and vomiting (1 source) Nausea; Translations: [Nausea] 11-10-2023 Episodic Other nutritional; endocrine; and metabolic disorders (5 sources) Obesity; Translations: [Obesity, unspecified] Onset: 06-06-2024 06-06-2024 Chronic Other nutritional; endocrine; and metabolic disorders (6 sources) Body mass index 30+ - obesity; Translations: [Body mass index (BMI) 36.0-36.9, adult] Onset: 07-31-2024 07-31-2024 Chronic Other and delivery including normal (2 sources) care status; Translations: [Encounter for routine follow-up] 08-01-2024 Episodic Other screening for suspected conditions (not mental disorders or infectious disease) (4 sources) Encounter for screening for malignant neoplasm of cervix; Translations: [ENC SCREENING MALIG NEOPLASM CERV] Onset: 10-20-2022 Episodic Other upper respiratory disease (5 sources) Allergic rhinitis; Translations: [Allergic rhinitis, unspecified] Onset: 06-06-2024 06-06-2024 Chronic Substance-related disorders (5 sources) Tobacco dependence syndrome; Translations: [Nicotine dependence, unspecified, uncomplicated] Onset: 06-06-2024 06-06-2024 Chronic Unclassified (5 sources) OB Reminders Onset: 11-17-2023 11-17-2023 Past or Other Problems Problem Classification Problem Date Documented Date Episodic/Chronic Other female genital disorders (4 sources) Other specified noninflammatory disorders of vagina; Translations: [OTH SPEC NONINFLAMMATORY D/O VAGINA] Onset: 08-23-2022 Episodic Results Test Name Value Interpretation Reference Range Facility HCG ( test) Ql (U)o n 11-10-2023 Interpretation and review of laboratory results Abnormal [facility] Healthcare Preg Test, Ur Positive [facility] Health care [facility] Urinalysis macro (dipstick) panel (U)on 11-10-2023 Bilirubin, UA Negative Negative - 4(70) +++ mg/dL [facility] Blood, UA Positive Negative - 50 Sandeep/mcL [facility] Comment on above: trace Clarity, UA Clear [facility] re Color, UA Yellow [facility] e Glucose, UA Negative Negative - [...] Hospital pH, UA 5.5 5 - 9 [facility] e Protein, UA Trace Negative - 1999(20) ++++ mg/dL [facility] Spec Grav, UA 1.030 1 - 1.03 [facility] Urobilinogen, UA 1.0 0.2 - 12 mg/dL [facility] PELVIS AND TRANSVAGon [...] by: ROBERTO MORFIN Date: 2022-10-26 16:30 Normal [facility] PAP ACOG PANEL 2: 21 to 29on 10-25-2022 . . Normal [facility] Comment on above: Performed By: #### [id number] #### [facility] [address] [place] [address] Dr. Jorge Luis Mena Age Gdln ACOG Testing 21-29 Normal [facility] Comment on above: Performed By: #### [id number] #### [facility] [address] [place] [address] Dr. Jorge Luis Mena DIAGNOSIS: Comment Normal [facility] Comment on above: Result Comment: NEGA TIVE FOR INTRAEPITHELIAL LESION OR MALIGNANCY. Performed By: #### [id number] #### [facility] [address] [place] [address] Dr. Jorge Luis Mena Methodology: Comment Normal [facility] Comment on above: Result Comment: This liquid based ThinPrep(R) pap test was screened with the use of an image guided system. Performed By: #### [id number] #### [facility] [address] [place] [address] Dr. Jorge Luis Mena Note: Comment Normal [facility] Comment on above: Result Comment: The Pap smear is a screening test designed to aid in the detection of premalignant and malignant conditions of the uterine cervix. It is not a diagnostic procedure and should not be used as the sole means of detecting cervical cancer. Both false-positive and false-negative reports do occur. . Performed By: #### [id number] #### [facility] [address] [place] [address] Dr. Jorge Luis Mena Performed by: Comment Normal [facility] Comment on above: Result Comment: Yady Dowell, Quality Control Supervisor (ASCP) Performed By: #### [id number] #### [facility] [address] [place] [address] Dr. Jorge Luis Mena Reflex Criteria: Comment Normal [facility] Comment on above: Result Comment: The HPV DNA reflex criteria were not met with this specimen result therefore, no HPV testing was performed. . Performed By: #### [id number] #### [facility] [address] [place] [address] Dr. Jorge Luis Mena Specimen adequacy: Comment Normal [facility] Comment on above: Result Comment: Sati sfactory for evaluation. Endocervical and/or squamous metaplastic cells (endocervical component) are present. Performed By: #### [id number] #### [facility] [address] [place] [address] Dr. Jorge Luis Mena CHLAMYDIA/GONOCOCCUS SHANELLE (SW AB/URINE/PAPon 10-23-2022 Chlamydia trachomatis, SHANELLE Negative Normal Negative [facility] Comment on above: Performed By: #### C T/NGNA #### [facility] [address] [place] [address] Dr. Jorge Luis Mena Neisseria gonorrhoeae, SHANELLE Negative Normal Negative [facility] Comment on above: Performed By: #### C T/NGNA #### [facility] [address] [place] [address] Dr. Jorge Luis Mena VAGINITIS/VAGINOSIS DNA PROB Angel 10-22-2022 Nancy species Negative Normal Negative [facility] Comment on above: Performed By: #### V AGINT #### [facility] [address] [place] [address] Dr. Jorge Luis Mena Gardnerella vaginalis Positive Abnormal Negative [facility] Comment on above: Performed By: #### V AGINT #### [facility] [address] [place] [address] Dr. Jorge Luis Mena Trichomonas vaginalis Negative Normal Negative [facility] Comment on above: Performed By: #### V AGINT #### [facility] [address] [place] [address] Dr. Jorge Luis Mena VAGINITIS/VAGINOSIS DNA PROB Angel 08-25-2022 Nancy species Negative Normal Negative [facility] Comment on above: Performed By: #### V AGINT #### [facility] [address] [place] [address] Dr. Jorge Luis Mena Gardnerella vaginalis Negative Normal Negative [facility] Comment on above: Performed By: #### V AGINT #### [facility] [address] [place] [address] Dr. Jorge Luis Mena Trichomonas vaginalis Negative Normal Negative [facility] Comment on above: Performed By: #### V AGINT #### [facility] [address] [place] [address] Dr. Jorge Luis Mena Vital Signs Date Time Vital Sign Value Performing Clinician Faci lity 08-01-2024 11:26-0400 Body mass index (BMI) [Ratio] 40.28 kg/m2 Vitor Thuy DO Work Phone: [facility] 08-01-2024 11:26-0400 Body weight 103.15 kg Vitor Thuy DO Work Phone: [facility] 08-01-2024 11:26-0400 Diastolic blood pressure 66 mm[Hg] Vitor Thuy DO Work Phone: [facility] 08-01-2024 11:26-0400 Systolic blood pressure 110 mm[Hg] Vitor Thuy DO Work Phone: [facility] 07-31-2024 09:53-0400 Body height 160 cm Garima Scott CLINICAL BIOCHEMICAL GENETICIST Work Phone: [facility] 07-31-2024 09:53-0400 Body mass index (BMI) [Ratio] 38.97 kg/m2 Garima Scott CLINICAL BIOCHEMICAL GENETICIST Work Phone: [facility] 07-31-2024 09:53-0400 Body temperature 97.9 [degF] Garima Scott CLINICAL BIOCHEMICAL GENETICIST Work Phone: [facility] 07-31-2024 09:53-0400 Body weight 99.79 kg Garima Scott CLINICAL BIOCHEMICAL GENETICIST Work Phone: [facility] 07-31-2024 09:53-0400 Diastolic blood pressure 72 mm[Hg] Garima Scott CLINICAL BIOCHEMICAL GENETICIST Work Phone: [facility] 07-31-2024 09:53-0400 Heart rate 77 /min Garima Scott CLINICAL BIOCHEMICAL GENETICIST Work Phone: [facility] 07-31-2024 09:53-0400 Respiratory rate 16 /min Garima Scott CLINICAL BIOCHEMICAL GENETICIST Work Phone: [facility] 07-31-2024 09:53-0400 SaO2% (BldA) [Mass fraction] 98 % Garima Scott CLINICAL BIOCHEMICAL GENETICIST Work Phone: [facility] 07-31-2024 09:53-0400 Systolic blood pressure 110 mm[Hg] Garima Scott CLINICAL BIOCHEMICAL GENETICIST Work Phone: [facility] Healthcare 11-10-2023 14:40-0500 Body mass index (BMI) [Ratio] 35.74 kg/m2 [facility] 11-10-2023 14:40-0500 Body weight 92.99 kg [facility] 11-10-2023 14:40-0500 Diastolic blood pressure 72 mm[Hg] [facility] Healthcare 11-10-2023 14:40-0500 Systolic blood pressure 122 mm[Hg] [facility] Healthcare Encounters Encounter Date Encounter Type Care Provider Facility Start: 08-01-2024 End: 08-01-2024 care visit Vitor Thuy DO Work Phone: [facility] Comment on above: 6 weeks f ollow-up; Mood disorder (CMS/HCC) Start: 08-01-2024 End: 08-01-2024 ambulatory VITORJoe GARCIAO Not Available Start: 07-31-2024 End: 07-31-2024 Bamboo flowsheet Garima Scott CLINICAL BIOCHEMICAL GENETICIST Work Phone: [facility] Start: 07-31-2024 End: 07-31-2024 Bamboo flowsheet Garima Rochak CLINICAL BIOCHEMICAL GENETICIST Work Phone: [facility] Start: 07-31-2024 End: 07-31-2024 Initial preventive medicine new pt age 18-39yrs Garima Scott CLINICAL BIOCHEMICAL GENETICIST Work Phone: [facility] Comment on above: Wellness examination (Primary Dx); Encounter to establish care; Anemia, unspecified type; Body mass index (BMI) 36.0-36.9, adult Start: 07-31-2024 End: 07-31-2024 Patient encounter status Garima Scott CLINICAL BIOCHEMICAL GENETICIST Work Phone: [facility] Healthcare Work Phone: Start: 07-31-2024 End: 07-31-2024 ambulatory GARIMA SCOTT Not Available Start: 06-20-2024 End: 06-20-2024 ambulatory VITOR THUY [...] Treatment Date Care Activity Detail Author Start: 02-07-2025 End: 02-07-2025 Patient encounter procedure 02/07/2025 11:00 AM EDT Office Visit [facility] [place] [address] Vitor Daley, DO [address] [place] [address] [facility] Start: 01-30-2025 End: 01-30-2025 Patient encounter procedure 01/30/2025 7:30 AM EDT Office Visit [facility] [address] [place] [id number] Garima Scott, CLINICAL BIOCHEMICAL GENETICIST [address] [place] [address] [facility] Start: 08-01-2024 End: 08-01-2024 ambulatory 08/01/2024 11:20 AM [facility] [address] [place] [id number] Vitor Daley, [address] [place] [address] [facility] Start: 07-31-2024 End: 07-31-2025 CBC W Auto Differential panel - Blood CBC and differential Lab Routine Wellness examination Anemia, unspecified type Expected: 07/31/2024 (Approximate), Expires: 07/31/2025 [facility] Healthcare Comment on above: Expected: 07/31/2024 (Approximate), Expires: 07/31/2025 Start: 07-31-2024 End: 07-31-2025 Cobalamin (Vitamin B12) [Mass/volume] in Serum or Plasma Vitamin B12 Lab Routine Wellness examination Anemia, unspecified type Expected: 07/31/2024 (Approximate), Expires: 07/31/2025 [facility] Healthcare Comment on above: Expected: 07/31/2024 (Approximate), Expires: 07/31/2025 Start: 07-31-2024 End: 07-31-2025 Comprehensive metabolic 2000 panel - Serum or Plasma Comprehensive metabolic panel Lab Routine Wellness examination Expected: 07/31/2024 (Approximate), Expires: 07/31/2025 [facility] Comment on above: Expected: 07/31/2024 (Approximate), Expires: 07/31/2025 Start: 07-31-2024 End: 07-31-2025 Ferritin [Mass/volume] in Serum or Plasma Ferritin Lab Routine Wellness examination Anemia, unspecified type Expected: 07/31/2024 (Approximate), Expires: 07/31/2025 [facility] Comment on above: Expected: 07/31/2024 (Approximate), Expires: 07/31/2025 Start: 07-31-2024 End: 07-31-2025 Iron + transferrin + TIBC Iron + transferrin + TIBC Lab Routine Wellness examination Anemia, unspecified type Expected: 07/31/2024 (Approximate), Expires: 07/31/2025 [facility] Comment on above: Expected: 07/31/2024 (Approximate), Expires: 07/31/2025 Start: 07-31-2024 End: 07-31-2025 TSH W/REFLEX TO FT4 TSH W/REFLEX TO FT4 Lab Routine Wellness examination Expected: 07/31/2024 (Approximate), Expires: 07/31/2025 [facility] Work Phone: Comment on above: Expected: 07/31/2024 (Approximate), Expires: 07/31/2025 Start: 07-31-2024 End: 07-31-2024 Patient encounter procedure 07/31/2024 10:00 AM EDT Office Visit [facility] [address] [place] [address] Garima Scott NP [address] [place] [address] Arrived [facility] Comment on above: Arrived Start: 06-10-2024 Influenza vaccination Influenza Vacc ine (#1) [facility] Healthcare Start: 12-12-2023 End: 12-12-2023 Patient encounter procedure 12/12/2023 3:50 PM EST Routine [facility] [address] [place] [address] [place] [address] Vitor Daley, [address] [place] [address] [facility] Start: 11-10-2023 End: 11-10-2024 ABO/Rh ABO/Rh Lab Routine Missed menses Expected: 11/10/2023 (Approximate), Expires: 11/10/2024 [facility] Comment on above: Expected: 11/10/2023 (Approximate), Expires: 11/10/2024 Start: 11-10-2023 End: 11-10-2024 Blood type and Indirect antibody screen panel - Blood Type and screen Lab Routine Missed menses Expected: 11/10/2023 (Approximate), Expires: 11/10/2024 [facility] Work Phone: Comment on above: Expected: 11/10/2023 (Approximate), Expires: 11/10/2024 Start: 11-10-2023 End: 11-10-2024 US Pelvis transvaginal US OB transvaginal Imaging Routine Missed menses Expected: 11/10/2023 (Approximate), Expires: 11/10/2024 [facility] Comment on above: Expected: 11/10/2023 (Approximate), [...] Date Payer Category Payer Private Health Insurance [id number] 1998 Unknown [id number] 2.16.84 [id number] 1998 Unknown [id number] 2.16.84 0.1.382506.3.579.2.593 1998 Unknown [id number] 2.16.84 0.1.764071.3.579.2.593 1998 Unknown [id number] 2.16.84 0.1.869474.3.579.2.593 1998 Unknown [id number] 2.16.84 0.1.158926.3.579.2.1259 1998 Unknown [id number] 2.16.84 0.1.190166.3.579.2.1259 1998 Unknown [id number] 2.16.84 0.1.611994.3.579.2.125 1998 Unknown [id number] 2.16.84 0.1.513449.3.579.2.1259 1998 Unknown [id number] 2.16.84 0.1.817889.3.579.2.1259 1998 Unknown [id number] 2.16.84 0.1.380705.3.579.2.1259 1998 Unknown [id number] 2.16.84 0.1.535991.3.579.2.9 1998 Unknown [id number] 2.16.84 0.1.367600.3.579.2.9 1998 Unknown [id number] 2.16.84 0.1.185562.3.579.2.1258 1998 Unknown [id number] 2.16.84 0.1.820753.3.579.2.9 1998 Unknown [id number] 2.16.84 0.1.692624.3.579.2.1258 1998 Unknown [id number] 2.16.84 0.1.234477.3.579.2.9 1998 Unknown [id number] 2.16.84 0.1.782089.3.579.2.1258 1998 Unknown [id number] 2.16.84 0.1.372811.3.579.2.9 1998 Unknown [id number] 2.16.84 0.1.500498.3.579.2.9 1959 Private Health Insurance [id number] Social History Date Type Detail Facility Start: 10-04-2023 Tobacco smoking stat [facility] Smokes tobacco daily [facility] End: 10-10-2015 History of tobacco use Cigarette Smoker [facility] Start: 11-10-2023 End: 08-01-2024 Alcohol intake Lifetime non-drinker (finding) [facility] Start: 10-04-2023 End: 07-31-2024 History of Social function [facility] Start: 10-04-2023 End: 07-31-2024 Tobacco use panel [facility] Start: 10-04-2023 Tobacco Comment 5 or less cigarettes /day [facility] Start: 10-05-2023 [facility] Start: 2000 Sex Assigned At Not on file [facility] Start: 2000 Sex assigned at Female [facility] Start: 11-17-2023 Gender identity Identifies as female gender (finding) [facility] Start: 07-31-2024 Tobacco smoking stat [facility] Ex-smoker [facility] End: 10-10-2015 History of tobacco use Current smoker [facility] Medical Equipment Procedure Code Equipment Code Equipment Origin al Text Equipment Identifier Dates Start: 04-18-2024 End: 07-31-2024 Goals Date Patient Goal Desired Activity /State Personal health goal History of Present illness Narrative 08-01-2024 Ceeang Cruz LPN - 08/01/2024 11:20 AM EDT Note Date & Type Note Facility 08-01-2024 History of Presen t illness Narrative Reason for Appointment: Patient ID: Benitez Arroyo is a 24 y.o. female who presents for Care Patient presents today for Post Follow Up appointment. MEDICATIONS Current Outpatient Medications Medication Instructions iron polysaccharides (PROFE) 391.3 mg, Oral, Daily ALLERGIES Allergies Allergen Reactions Amoxicillin Other Reaction(s): Unknown PROBLEMS Active Ambulatory Problems Diagnosis Date Noted Allergic rhinitis 06/06/2024 Bipolar affective, mixed (HCC) ([facility]) 06/06/2024 Impaired glucose tolerance 06/06/2024 Migraine syndrome ([facility]) 06/06/2024 Obesity 06/06/2024 Tobacco dependence 06/06/2024 Encounter to establish care 07/31/2024 Wellness examination 07/31/2024 Anemia 07/31/2024 Body mass index (BMI) 36.0-36.9, adult 07/31/2024 Resolved Ambulatory Problems Diagnosis Date Noted No Resolved Ambulatory Problems No Additional Past Medical History HISTORY PAST MEDICAL HISTORY SOCIAL HISTORY Past Medical History: Diagnosis Date Allergic rhinitis Impaired glucose tolerance Obesity Social History Tobacco Use Smoking status: Former Current packs/day: 0.00 Types: Cigarettes Quit date: 10/10/2015 Years since quittin.8 Smokeless tobacco: Not on file Tobacco comments: 5 or less cigarettes/day Substance Use Topics Alcohol use: Never Drug use: Never FAMILY HISTORY Family History Problem Relation Name Age of Onset Hypertension Mother Diabetes Mother Hypertension Maternal Grandmother SURGICAL HISTORY History reviewed. No pertinent surgical history. REVIEW OF SYSTEMS Review of Systems: Review of Systems Constitutional: Negative. HENT: Negative. Eyes: Negative. Respiratory: Negative. Cardiovascular: Negative. Gastrointestinal: Negative. Genitourinary: Negative. Musculoskeletal: Negative. Skin: Negative. Neurological: Negative. All other systems reviewed and are negative. Hematological: Negative. Endocrine: Negative. Allergic/Immunologic: Negative. OBJECTIVE Objective: Physical Exam Constitutional: Appearance: Normal appearance. She is well-developed. Cardiovascular: Rate and Rhythm: Normal rate and regular rhythm. Pulmonary: Effort: Pulmonary effort is normal. Breath sounds: Normal breath sounds. Abdominal: General: Bowel sounds are normal. There is no distension. Palpations: Abdomen is soft. Tenderness: There is no abdominal tenderness. There is no guarding or rebound. Musculoskeletal: General: No swelling. Normal range of motion. Right lower leg: No edema. Left lower leg: No edema. Neurological: Mental Status: She is alert and oriented to person, place, and time. Skin: General: Skin is warm and dry. Psychiatric: Mood and Affect: Mood normal. Behavior: Behavior normal. Vitals and nursing note reviewed. Exam conducted with a photoengraving supervisor present. Vitals: Estimated body mass index is 40.28 kg/m as calculated from the following: Height as of 07/31/24: 5' 3 . Weight as of this encounter: 227 lb 6.4 oz. BP: 110/66 No LMP recorded (lmp unknown). ASSESSMENT & PLAN ICD-10-CM 1. 6 weeks follow-up Z39.2 Post Follow Up: Patient is doing well but has complaints of getting angry quicker and sooner. Pt to start celexa- pt denies suicidal and homicidal ideations. Rx for celexa faxed to pharmacy. Patient presents today for 6 week visit. Patient is s/p Vaginal delivery. Patient states depression but denies suicidal and homicidal ideations. All options were discussed with the patient regarding control and patient desires none at this time. Follow Up: Patient is to return for annual unless needed otherwise. Documented by Cee Cruz LPN on behalf of: Vitor Daley DO documented in this encounter [facility] History of Present illness Narrative 07-31-2024 Garima Scott NP - 07/31/2024 11:00 AM Anabell Scott NP - 07/31/2024 10:58 AM Anabell Scott NP - 07/31/2024 10:00 AM Anabell Scott NP - 07/31/2024 8:36 AM EDT Note Date & Type Note Facility 07-31-2024 History of Presen t illness Narrative Associated Problem(s): Body mass index (BMI) 36.0-36.9, adult Discussed with patient their BMI (actual, verses recommended). We have also discussed lifestyle modifications: attempts to perform physical activity as chronic conditions allow, also to monitor dietary intake: increasing protein/fruits/veggies and lowering carb intake (unless contraindicated). Limit sodas, juices, and sugary drinks. Also discussed oral medications that can be utilized for weight loss, as well as surgical options for weight loss. Associated Problem(s): Anemia Was extremely anemic during , was placed on iron supplementation by [employer]. Was not consistent with regimen. Most recent CBC done 06/2024, during . Will order recheck today. Images from the original note were not included. Subjective Patient ID: Benitez Arroyo is a 24 y.o. female who presents for Establish Care. HPI Lives at home with and baby, Andrey. Enjoys reading, drawing, playing video games. Works for [employer] Diet: mostly home cooked meals. Not enough protein. Minimal fruits and vegetables. Reports being a picky eater. Moderate junk food intake. Water: 40 ounces per day roughly Caffeine: 300-600mg per day. 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 Reports broken sleep when working. States she is sleeping better with than she was when working. 4-5 hours, restless sleep. 6 weeks post ; Is not Had Gestational Diabetes, was being managed by Dr. Daley [employer]. Was extremely anemic during , was placed on iron supplementation. Was not consistent with regimen. Would like iron levels rechecked today. Review of Systems Constitutional: Negative for activity change, appetite change, chills, diaphoresis, fatigue, fever and unexpected weight change. HENT: Negative for congestion, ear pain, rhinorrhea, sinus pressure, sinus pain, sneezing, sore throat, trouble swallowing and voice change. Eyes: Negative for visual disturbance. Respiratory: Negative for cough, chest tightness, shortness of breath and wheezing. Cardiovascular: Negative for chest pain, palpitations and leg swelling. Gastrointestinal: Negative for abdominal distention, abdominal pain, blood in stool, constipation, diarrhea and vomiting. Genitourinary: Negative for decreased urine volume, dysuria, flank pain, frequency, hematuria and urgency. Musculoskeletal: Negative for arthralgias, gait problem, joint swelling and myalgias. Skin: Negative for rash. Neurological: Negative for dizziness, tremors, syncope, weakness, light-headedness and headaches. Psychiatric/Behavioral: Negative for decreased concentration and suicidal ideas. The patient is not nervous/anxious. Hematological: Does not bruise/bleed easily. Endocrine: Negative for cold intolerance, heat intolerance, polydipsia, polyphagia and polyuria. Objective Physical Exam Vitals reviewed. Constitutional: Appearance: Normal appearance. She is obese. HENT: Head: Normocephalic and atraumatic. Right Ear: Tympanic membrane normal. Left Ear: Tympanic membrane normal. Nose: Nose normal. Mouth/Throat: Mouth: Mucous membranes are moist. Pharynx: Oropharynx is clear. Eyes: Pupils: Pupils are equal, round, and reactive to light. Cardiovascular: Rate and Rhythm: Normal rate and regular rhythm. Pulses: Normal pulses. Heart sounds: Normal heart sounds. Pulmonary: Effort: Pulmonary effort is normal. Breath sounds: Normal breath sounds. Abdominal: General: Abdomen is flat. Bowel sounds are normal. Palpations: Abdomen is soft. Musculoskeletal: General: Normal range of motion. Cervical back: Normal range of motion. Skin: General: Skin is warm and dry. Capillary Refill: Capillary refill takes less than 2 seconds. Neurological: General: No focal deficit present. Mental Status: She is alert and oriented to person, place, and time. Psychiatric: Mood and Affect: Mood normal. Behavior: Behavior normal. Assessment/Plan Problem List Items Addressed This Visit Encounter to establish care I have reviewed Ht/Wt/BMI, I have reviewed recommended vaccines for patient's age, as well as all recommended screenings I have reviewed available care everywhere notes as well. I have recommended eating a balanced diet, as well as activity as chronic conditions allow It is recommended that the patient have a yearly eye exam, as well as twice a year dental exams Fu in this office for wellness on a yearly basis Diet: Eat three meals per day. Breakfast, lunch, and dinner. Avoid snacking. Avoid eating after 5/6 pm. Daily protein GOAL 35% of your intake; 30g per meal. Daily calorie GOAL 1,800-2,000 per day. Consider tracking your food intake on MyFtinessPal or LoseIt Water: Increase water intake; GOAL 64-80oz of water per day. Exercise: Increase activity. GOAL 30 minutes, 5 days per week. START SLOW. Start with 5 minutes, 5 days per week. Then increase to 10 days, 5 days per week. Continue to increase until you reach the goal. Increase steps; GOAL 10,000 steps per day. Be sure to get adequate sleep; GOAL 6-8 hours of sleep per night. Wellness examination - Primary Relevant Orders TSH W/REFLEX TO FT4 Comprehensive metabolic panel CBC and differential Vitamin B12 Ferritin Iron + transferrin + TIBC Anemia Was extremely anemic during , was placed on iron supplementation by [employer]. Was not consistent with regimen. Most recent CBC done 06/2024, during . Will order recheck today. Relevant Orders CBC and differential Vitamin B12 Ferritin Iron + transferrin + TIBC Body mass index (BMI) 36.0-36.9, adult Discussed with patient their BMI (actual, verses recommended). We have also discussed lifestyle modifications: attempts to perform physical activity as chronic conditions allow, also to monitor dietary intake: increasing protein/fruits/veggies and lowering carb intake (unless contraindicated). Limit sodas, juices, and sugary drinks. Also discussed oral medications that can be utilized for weight loss, as well as surgical options for weight loss. Associated Problem(s): Encounter to establish care I have reviewed Ht/Wt/BMI, I have reviewed recommended vaccines for patient's age, as well as all recommended screenings I have reviewed available care everywhere notes as well. I have recommended eating a balanced diet, as well as activity as chronic conditions allow It is recommended that the patient have a yearly eye exam, as well as twice a year dental exams Fu in this office for wellness on a yearly basis Diet: Eat three meals per day. Breakfast, lunch, and dinner. Avoid snacking. Avoid eating after 5/6 pm. Daily protein GOAL 35% of your intake; 30g per meal. Daily calorie GOAL 1,800-2,000 per day. Consider tracking your food intake on MyFtinessPal or LoseIt Water: Increase water intake; GOAL 64-80oz of water per day. Exercise: Increase activity. GOAL 30 minutes, 5 days per week. START SLOW. Start with 5 minutes, 5 days per week. Then increase to 10 days, 5 days per week. Continue to increase until you reach the goal. Increase steps; GOAL 10,000 steps per day. Be sure to get adequate sleep; GOAL 6-8 hours of sleep per night. documented in this encounter [facility] Instructions 07-31-2024 Patient Instructions Note Date & Type Note Facility 07-31-2024 Instructions Garima Scott NP - 07/31/2024 10:00 AM EDT FASTING labs ordered. Nothing to eat or drink for 12 hours prior to blood draw. Water and black coffee ok. Diet: Eat three meals per day. Breakfast, lunch, and dinner. Avoid snacking. Avoid eating after 5/6 pm. Daily protein GOAL 35% of your intake; 30g per meal. Daily calorie GOAL 1,800-2,000 per day. Consider tracking your food intake on MyFtinessPal or LoseIt Water: Increase water intake; GOAL 64-80oz of water per day. Exercise: Increase activity. GOAL 30 minutes, 5 days per week. START SLOW. Start with 5 minutes, 5 days per week. Then increase to 10 days, 5 days per week. Continue to increase until you reach the goal. Increase steps; GOAL 10,000 steps per day. Be sure to get adequate sleep; GOAL 6-8 hours of sleep per night. SLEEP: INCREASE your cardiovascular ACTIVITY; GOAL 150 minutes per week. AVOID eating less than 2-4 hours before bedtime. AVOID all electronics for 2 hours prior to bedtime. Bed is for SLEEP ONLY. AVOID excessive alcohol intake. AVOID caffeine after 12:00pm. Go to bed when you are tired. If you are not tired that night, push the time back by 30 minutes the next night. Continue to do so until you are able to fall asleep without difficulty. If you wake up in the middle of the night, DO NOT LAY THERE FOR LONGER THAN 40 MINUTES. Once you are up, YOU ARE UP FOR THE DAY. AVOID napping. Get a Lavender diffuser in your bedroom. Magnesium Glycinate 500-1,000mg about 30-60 minutes before bedtime. Brand: Innate Melatonin 5mg-10mg about 30 minutes before bed. Any brand is fine, but once you pick one stick with it. documented in this encounter [facility] History of Present illness Narrative 11-10-2023 [...] Nona Santana MA documented in this encounter [facility] Healthcare Evaluation note Note Date & Type Note Facility Evaluation note Diagnosis Missed menses Nausea Nausea alone Other migraine without status migrainosus, not intractable (CMS/HCC) documented in this encounter [facility] Healthcare Evaluation note Note Date & Type Note Facility Evaluation note Diagnosis Wellness examination- Primary Encounter to establish care Anemia, unspecified type Body mass index (BMI) 36.0-36.9, adult documented in this encounter [facility] Healthcare Evaluation note Note Date & Type Note Facility Evaluation note Diagnosis Wellness examination- Primary Encounter to establish care Anemia, unspecified type Body mass index (BMI) 36.0-36.9, adult 6 weeks follow-up Mood disorder (CMS/HCC) Unspecified episodic mood disorder documented in this encounter [facility] Healthcare Summary Purpose Family History No Family History Records FoundNo Family History Records Found Advance Directives No Advanced Directives Records FoundNo Advanced Directives Records Found Additional Source Comments INFORMATION SOURCE (unrecogn ized section and content) DATE CREATED AUTHOR 12/27/2022 [facility] DATE CREATED AUTHOR AUTHOR'S ORGANIZ ATION 08/02/2024 [facility] EPIC Reason for Visit (unrecogniz ed section and content) Reason Comments Amenorrhea Reason Comments Establish Care Reason Comments Care Care Teams (unrecognized sec tion and content) 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 Relationship Specialty Start Date End Date Archie Chaudhari MD [address] [facility] [address] [place] [address] PCP - General Internal Medicine 02/15/23 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 Relationship Specialty Start Date End Date Unallocated, Koko Salvador MD [facility] [place] [address] PCP - General Family Medicine 07/26/24 Garima Scott NP [address] [place] [address] Nurse Practitioner Family Medicine 07/26/24 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 Relationship Specialty Start Date End Date Unallocated, Koko Salvador MD [facility] [place] [address] PCP - General Family Medicine 07/26/24 Garima Scott NP [address] [place] [address] Nurse Practitioner Family Medicine 07/26/24 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 [facility] provides no warranty or guarantee of the accuracy or completeness of information in this document.
[2024-08-11 10:04] LABS: Basophils Percent Auto 0.6 % (0.2-2.0); Eosinophils Absolute Auto 0.1 10^3/uL (0.0-0.7); Eosinophils Percent Auto 1.2 % (0.9-7.0); Hematocrit 37.6 % (36.0-48.0); Hemoglobin 12.6 g/dL (12.0-16.0); Immature Granulocytes Abs Auto 0.01 10^3/uL (0.00-0.03); Immature Granulocytes Pct Auto 0.2 % (0.0-0.5); Lymphocytes Percent Auto 30.4 % (20.5-60.0); Mean Corpuscular HGB Conc 33.5 g/dL (29.9-35.2); Mean Corpuscular Volume 89.5 fL (81.0-99.0); Mean Platelet Volume 10.5 fL (9.5-13.5); Monocytes Absolute Auto 0.5 10^3/uL (0.3-0.8); Monocytes Percent Auto 8.4 % (1.7-12.0); Neutrophils Absolute Auto 3.8 10^3/uL (1.4-6.5); Neutrophils Percent Auto 59.2 % (43.0-75.0); Platelet Count 255 10^3/uL (150-450); Red Cell Distribution Width 12.1 % (11.0-15.0); White Blood Count 6.4 10^3/uL (4.0-11.0)
[2024-08-11 10:47] LABS: Alanine Aminotransferase 21 U/L (14-59); Albumin Globulin Ratio 0.8; Albumin Level 3.2 g/dL (3.4-5.0); Alkaline Phosphatase 80 U/L (46-116); Anion Gap 11.3; Aspartate Amino Transferase 18 U/L (15-37); BUN Creatinine Ratio 16.2; Bilirubin Total 0.6 mg/dL (0.2-1.0); Calcium 8.7 mg/dL (8.5-10.1); Carbon Dioxide 28.6 mmol/L (21.0-32.0); Chloride 104 mmol/L (98-107); Estimated GFR (African America >60 (>=60 mL/min/1.73m^2); Estimated GFR (Non-African Ame >60 (>=60 mL/min/1.73m^2); Globulin 3.9 g/dL; Glucose 91 mg/dL (74-106); Potassium 3.9 mmol/L (3.5-5.1); Sodium 140 mmol/L (136-145); TSH W/ REFLEX FT4 2.686 uIU/mL (0.358-3.740); Total Protein 7.1 g/dL (6.4-8.2)
[2024-08-11 11:39] LABS: Percent Iron Saturation 32.3 %
[2024-08-12 10:08] LABS: Vitamin B12 655 pg/mL (232-1245)
[2024-08-12 11:07] LABS: Transferrin 242 mg/dL (192-364)
== END 2024-08-11 09:46 | disposition home or self-care (01) ==
LOC: LAB 09:45
DX: Z00.00 Encounter for general adult medical examination without abnormal findings (principal); D64.9 Anemia, unspecified
CPT/HCPCS: 36415; 80053; 82607; 82728; 83540; 83550; 84443; 84466; 85025